=== PATIENT | female | born 2000 | race Caucasian/White ===

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

== ENCOUNTER 2020-01-02 20:12 | Emergency (ER) | payer OTHER ==
[2020-01-02 20:38] LABS: BILIRUBIN,URINE NEGATIVE (NEGATIVE); CLARITY,URINE CLEAR (CLEAR); GLUCOSE, URINE (UA) NEGATIVE (NEGATIVE); KETONES,URINE (UA) NEGATIVE (NEGATIVE); LEUKOCYTE ESTERASE, URINE NEGATIVE (NEGATIVE); NITRITE,URINE NEGATIVE (NEGATIVE); OCCULT BLOOD,URINE NEGATIVE (NEGATIVE); PH,URINE 5.5 PH (5.0-7.5); PROTEIN,URINE NEGATIVE (NEGATIVE); UROBILINOGEN,URINE 0.2 (NORMAL) E.U./dL (NORMAL)
[2020-01-02 20:39] LABS: HCG UR QUAL NEGATIVE
[2020-01-02 20:57] LABS: BASOPHILS % (AUTO) 0.4 %; EOSINOPHILS # (AUTO) 0.2 10^3/uL (0.0-0.7); EOSINOPHILS % (AUTO) 2.4 %; HGB - HEMOGLOBIN 13.2 g/dL (12.0-16.0); LYMPHOCYTES # (AUTO) 2.2 10^3/uL (1.5-3.5); LYMPHOCYTES % (AUTO) 29.6 %; MEAN CORPUSCULAR HEMOGLOBIN 29.9 pg (27.0-31.0); MEAN CORPUSCULAR HGB CONC 33.2 g/dL (32.0-36.0); MEAN PLATELET VOLUME 9.6 fL (7.9-10.8); MONOCYTES # (AUTO) 0.7 10^3/uL (0.0-1.0); MONOCYTES % (AUTO) 9.8 %; NEUTROPHILS # (AUTO) 4.3 10^3/uL (1.5-6.6); NEUTROPHILS % (AUTO) 57.4 %; PLT - PLATELET COUNT 241 10^3/uL (130-450); RED BLOOD COUNT 4.42 10^6/uL (4.20-5.40); RED CELL DISTRIBUTION WIDTH 12.2 % (12.0-15.0); WHITE BLOOD COUNT 7.5 x10^3/uL (4.8-10.8)
[2020-01-02 21:13] LABS: ALBUMIN 4.2 g/dL (3.2-5.5); ALBUMIN/GLOBULIN RATIO 1.4 (1.0-2.2); BILIRUBIN,TOTAL 0.5 mg/dL (0.2-1.0); CALCIUM 8.9 mg/dL (8.5-10.3); CREATININE 0.7 mg/dL (0.4-1.0); TOTAL PROTEIN 7.2 g/dL (6.7-8.2)
--- NOTE | 2020-01-02 22:57 | ED Physician Documentation ---
PD HPI ABD PAIN - Stated complaint Stated Complaint: AB PX - Chief complaint Chief Complaint: Abd Pain - History obtained from History obtained from: Patient - History of Present Illness Timing - onset: How many days ago (3-4) Timing - duration: Days Timing - details: Gradual onset, Waxing and waning Pain level now: 8 Quality: Pain Location: All over / everywhere, RUQ Improved by: Other (nothing) Worsened by: Other (no exacerbating factors) Associated symptoms: Diarrhea. No: Fever, Nausea, Vomiting Recently seen: Clinic, Emergency Dept - Additional information Additional information: c/o several days of abdominal pain, predominantly RUQ. She had outpatient CT A/P 12/19 for this with unremarkable results. She then had outpatient pelvic/TV US 12/30 (unremarkable) and later same day she went to ED, had blood tests, urinalysis, and US of RUQ (patient says also nondiagnostic US results but she was prescribed cefdinir for UTI as well as dicyclomine). Review of Systems Constitutional: denies: Fever, Chills, Sweats Cardiac: reports: Reviewed and negative Respiratory: reports: Reviewed and negative GI: reports: Abdominal Pain, Diarrhea. denies: Nausea, Vomiting : denies: Dysuria, Frequency, Now EGA Skin: denies: Rash Musculoskeletal: denies: Back pain PD PAST MEDICAL HISTORY - Past Medical History Respiratory: Asthma : Other Other Past Medical History: UTI, Kidney infection - Past Surgical History Past Surgical History: No - Present Medications Home Medications: Ambulatory Orders Medication Instructions Recorded Confirmed Cefdinir 300 mg PO BID 01/02/20 01/02/20 Dicyclomine HCl 20 mg PO TID 01/02/20 01/02/20 Diphenoxylate/Atropine [Lomotil] 1 each PO QID PRN #14 tablet 01/02/20 Hydrocodone/Acetaminophen 1 - 2 each PO Q6H PRN #14 tablet 01/02/20 [Hydrocodon-Acetaminophen 5-325] Naproxen 500 mg PO BID 01/02/20 01/02/20 Ondansetron Odt [Zofran] 4 mg TL Q6H PRN 01/02/20 01/02/20 - Allergies Allergies/Adverse Reactions: Allergies Allergy/AdvReac Type Severity Reaction Status Date / Time No Known Drug Allergies Allergy Verified 10/31/19 11:19 - Social History Does the pt smoke?: Yes Smoking Status: Current every day smoker Does the pt drink ETOH?: No Does the pt have substance abuse?: No - Immunizations Immunizations are current?: Yes - POLST Patient has POLST: No PD ED PE NORMAL - Vitals Vital signs reviewed: Yes - General General: Alert and oriented X 3, No acute distress, Well developed/nourished - HEENT HEENT: Moist mucous membranes - Cardiac Cardiac: RRR, No murmur - Respiratory Respiratory: No respiratory distress, Clear bilaterally - Abdomen Abdomen: Soft, Non tender, Non distended - Back Back: No CVA TTP - Derm Derm: No rash Results - Vitals Vitals: Vital Signs - 24 hr 01/02/20 01/02/20 20:20 23:28 Temperature 36.7 C Heart Rate 72 70 Respiratory 18 16 Rate Blood Pressure 114/62 116/68 O2 Saturation 100 100 Oxygen O2 Source Room air - Labs Labs: Laboratory Tests 01/02/20 01/02/20 01/02/20 20:30 20:48 20:48 WBC 7.5 RBC 4.42 Hgb 13.2 Hct 39.8 MCV 90.0 MCH 29.9 MCHC 33.2 RDW 12.2 Plt Count 241 MPV 9.6 Neut # (Auto) 4.3 Lymph # (Auto) 2.2 [place] # (Auto) 0.7 Eos # (Auto) 0.2 Baso # (Auto) 0.0 Absolute Nucleated RBC 0.00 Nucleated RBC % 0.0 Sodium 141 Potassium 3.5 Chloride 107 Carbon Dioxide 25 Anion Gap 9.0 BUN 13 Creatinine 0.7 Estimated GFR (MDRD) 108 Glucose 82 Calcium 8.9 Total Bilirubin 0.5 AST 20 ALT 17 Alkaline Phosphatase 60 Total Protein 7.2 Albumin 4.2 Globulin 3.0 Albumin/Globulin Ratio 1.4 Lipase 27 Urine Color YELLOW Urine Clarity CLEAR Urine pH 5.5 Ur Specific [place] 1.025 Urine Protein NEGATIVE Urine Glucose (UA) NEGATIVE Urine Ketones NEGATIVE Urine Occult Blood NEGATIVE Urine Nitrite NEGATIVE Urine Bilirubin NEGATIVE Urine Urobilinogen 0.2 (NORMAL) Ur Leukocyte Esterase NEGATIVE Ur Microscopic Review NOT INDICATED Urine Culture Comments NOT INDICATED Urine HCG, Qual NEGATIVE PD MEDICAL DECISION MAKING - ED course Complexity details: reviewed old records, reviewed results, re-evaluated patient, considered differential, d/w patient ED course: normal CBC, ER abd. pain, and urinalysis (and negative HCG) on tonight's tests. Given her recent imaging (CT A/P, US RUQ and pelvic/TV US) with unremarkable results, emergent imaging unlikely to yield diagnostic result at this time. Will treat symptomatically at this time with vicodin and lomotil Departure - Departure Disposition: 01 Home, Self Care Clinical Impression: Abdominal pain Qualifiers: Abdominal location: right upper quadrant Qualified Code(s): R10.11 - Right upper quadrant pain Condition: Good Instructions: ED Abdominal Pain Unkn Cause Follow-Up: Rafael Duran MD [Primary Care Provider] - Prescriptions: Diphenoxylate/Atropine [Lomotil] 1 each PO QID PRN #14 tablet PRN Reason: Diarrhea Hydrocodone/Acetaminophen [Hydrocodon-Acetaminophen 5-325] 1 - 2 each PO Q6H PRN #14 tablet PRN Reason: pain Discharge Date/Time: 01/02/20 23:28
[2020-01-02] MEDS ORDERED: DIPHENOX/ATROPINE 2.5/0.025 MG TABLET PO STA (23:16)
[2020-01-02] MEDS ORDERED: HYDROcod/ACET 5/325 Prepack 4 PO STA (23:16)
[2020-01-02 23:30] VITALS: BP 116/68
== END 2020-01-02 23:28 | disposition home or self-care (01) ==
LOC: ED 20:12
DX: R10.11 Right upper quadrant pain (principal); R19.7 Diarrhea, unspecified; F17.200 Nicotine dependence, unspecified, uncomplicated
CPT/HCPCS: 36415; 80053; 81003; 81025; 83690; 85025; 99283; 99284; A9270; 81001; 87086

== ENCOUNTER 2020-02-12 09:27 | Emergency (ER) | payer MEDICAID, OTHER ==
[2020-02-12 09:47] LABS: BILIRUBIN,URINE NEGATIVE (NEGATIVE); GLUCOSE, URINE (UA) NEGATIVE (NEGATIVE); KETONES,URINE (UA) NEGATIVE (NEGATIVE); LEUKOCYTE ESTERASE, URINE NEGATIVE (NEGATIVE); NITRITE,URINE NEGATIVE (NEGATIVE); OCCULT BLOOD,URINE NEGATIVE (NEGATIVE); PROTEIN,URINE NEGATIVE (NEGATIVE); UROBILINOGEN,URINE 0.2 (NORMAL) E.U./dL (NORMAL)
[2020-02-12] MEDS ORDERED: KETOROLAC 60 MG/2 ML VIAL IM STA (09:47)
[2020-02-12] MEDS ORDERED: LIDOCAINE PATCH 5% TOP STA (09:48)
[2020-02-12 09:49] LABS: CLARITY,URINE CLEAR (CLEAR)
[2020-02-12 09:50] LABS: HCG UR QUAL NEGATIVE
--- NOTE | 2020-02-12 09:51 | ED Physician Documentation ---
PD HPI BACK PAIN - Stated complaint Stated Complaint: BACK PX N/V - Chief complaint Chief Complaint: General - History obtained from History obtained from: Patient - History of Present Illness Timing - onset: How many weeks ago (2) Timing - duration: Weeks (2) Timing - details: Gradual onset Location: Mid Quality: Pain, Other ('cramps') Associated symptoms: No: Fever, Weakness, Numbness, Incontinent of urine, Unable to urinate, Hematuria Improves with: Nothing Worsened by: Movement Recently seen: Not recently seen - Additional information Additional information: This is a 19-year-old presents with complaints that she is having back cramps across the middle of her back and points to the thoracolumbar region. She is been nauseous and vomited yesterday but none today. She is been having this pain for a couple of weeks intermittently now is a 6 out of 10 and been more persistent. 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 This morning she took 1000 g around 6 AM and has not done anything to help pain. She denies any fever although she complains of "pretty much watery" diarrhea for the past week with some mucus mixed into it but no blood. She has trouble with urination from the fact that she can start the urine stream but then it start and she has to restart it. She has not seen blood in the urine and she has no idea when her last menstrual period was. She initially denied the use of any antibiotics within the past 3 months but then said she was treated for a urinary tract infection sometime in October or November she could not remember the date. She denies injury to her back but does have pain radiating down the posterior aspect of the left leg to about mid thigh. Denies any coughing or shortness of breath. Review of Systems Constitutional: denies: Fever Nose: denies: Rhinorrhea / runny nose, Congestion Respiratory: denies: Dyspnea, Cough GI: reports: Nausea, Vomiting, Diarrhea. denies: Abdominal Pain : reports: Hesitancy, LMP (unknown). denies: Dysuria, Hematuria Musculoskeletal: reports: Back pain (Denies injury) Neurologic: reports: Other (Radicular pain down the left posterior thigh) PD PAST MEDICAL HISTORY - Past Medical History Respiratory: Asthma : Other - Past Surgical History Past Surgical History: No - Present Medications Home Medications: Ambulatory Orders Medication Instructions Recorded Confirmed Dicyclomine HCl 20 mg PO TID 01/02/20 01/02/20 Lidocaine Patch 5% [Lidoderm Patch] 1 each TOP DAILY #10 patch 02/12/20 Ondansetron Odt [Zofran] 4 mg TL Q6H PRN #6 tablet 02/12/20 - Allergies Allergies/Adverse Reactions: Allergies Allergy/AdvReac Type Severity Reaction Status Date / Time No Known Drug Allergies Allergy Verified 02/12/20 09:33 - Social History Does the pt smoke?: Yes Smoking Status: Current every day smoker Does the pt drink ETOH?: No Does the pt have substance abuse?: No - Immunizations Immunizations are current?: Yes - POLST Patient has POLST: No PD ED PE NORMAL - Vitals Vital signs reviewed: Yes - General General: Alert and oriented X 3, No acute distress, Well developed/nourished - HEENT HEENT: Atraumatic, PERRL, Moist mucous membranes - Cardiac Cardiac: RRR, No murmur, Strong equal pulses - Respiratory Respiratory: No respiratory distress, Clear bilaterally - Abdomen Abdomen: Normal bowel sounds, Soft, No organomegaly - Back Back: No CVA TTP, Other (No bruising no rash) - Derm Derm: Normal color, Warm and dry, No rash - Extremities Extremities: No deformity - Neuro Neuro: Alert and oriented X 3, associate technician 2-12 intact, No motor deficit, No sensory deficit, Normal speech, Other (Reflexes 2+ and symmetrical at the quadriceps bilaterally) - Psych Psych: Normal mood, Normal affect Results - Vitals Vitals: Vital Signs - 24 hr 02/12/20 02/12/20 02/12/20 09:31 10:28 11:22 Temperature 36.8 C 36.8 C Heart Rate 77 75 76 Respiratory 18 16 16 Rate Blood Pressure 98/56 L 101/61 98/62 O2 Saturation 99 99 99 Oxygen O2 Source Room air - Labs Labs: Laboratory Tests 02/12/20 02/12/20 09:41 09:41 Urine Color YELLOW Urine Clarity CLEAR Urine pH 6.0 Ur Specific [place] >=1.030 H >=1.030 H Urine Protein NEGATIVE Urine Glucose (UA) NEGATIVE Urine Ketones NEGATIVE Urine Occult Blood NEGATIVE Urine Nitrite NEGATIVE Urine Bilirubin NEGATIVE Urine Urobilinogen 0.2 (NORMAL) Ur Leukocyte Esterase NEGATIVE Ur Microscopic Review NOT INDICATED Urine Culture Comments NOT INDICATED Urine HCG, Qual NEGATIVE PD MEDICAL DECISION MAKING - ED course Complexity details: reviewed results, d/w patient ED course: 1050: Patient received an injection of Toradol and a lidocaine patch was applied. When I went back in to see her she said the pain was a little bit better but she was feeling more dizzy and nauseous. We discussed that neither Toradol or lidocaine really should make her feel that symptomatic. At this point I do not have a clear indication for her pain other than it is most likely musculoskeletal. There is no indication that this is urinary tract infection or kidney infection. I recommended ibuprofen [id number]. We will give her a prescription for a few doses of Zofran as well as lidocaine patches. 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 She also has plenty of cyclobenzaprine at home that she can take if needed for muscle relaxer. That has been helping her she just reluctant to take it. She was also provided stretching exercises Departure - Departure Disposition: Home, Self Care Clinical Impression: Back strain Qualifiers: Encounter type: initial encounter Qualified Code(s): S39.012A - Strain of muscle, fascia and tendon of lower back, initial encounter Condition: Good Instructions: ED Back Care Tips, ED Exercises Lumbar Muscles, ED Sprain Strain Lumbar Follow-Up: Miriam Weeks PA-C [Primary Care Provider] - Prescriptions: Lidocaine Patch 5% [Lidoderm Patch] 1 each TOP DAILY #10 patch Ondansetron Odt [Zofran] 4 mg TL Q6H PRN #6 tablet PRN Reason: Nausea / Vomiting Comments: Take ibuprofen 3 to 4 tablets every 8 hours with food. You have a prescription for Zofran if needed for nausea. May continue to use the cyclobenzaprine as well as a muscle relaxer but do not drive or operate machinery if you are taking that. Lidocaine patches can help topically with the pain. Have also provided some back care tips that are safe to do at this time. Follow-up with your primary care provider if you continue to have pain. Forms: Activity restrictions Discharge Date/Time: 02/12/20 11:00
[2020-02-12 11:24] VITALS: BP 98/62
== END 2020-02-12 11:00 | disposition home or self-care (01) ==
LOC: ED 09:27
DX: S39.012A Strain of muscle, fascia and tendon of lower back, initial encounter (principal); X58.XXXA Exposure to other specified factors, initial encounter; F17.200 Nicotine dependence, unspecified, uncomplicated
CPT/HCPCS: 81003; 81025; 96372; 99283; 99284; A9270; 81001; 87086

== ENCOUNTER 2020-04-04 13:05 | Outpatient (CLI) | payer MEDICAID ==
--- NOTE | 2020-04-04 13:35 | XRAY Report ---
Reason: COUGH,SOB,LOW BACK PAIN,MUSCLE SPASM Procedure Date: 04/04/2020 Accession Number: [id number] / [id number] Procedure: XR - Chest 2 View X-Ray CPT Code: 55911 Final Report FULL RESULT: EXAM: CHEST RADIOGRAPHY EXAM DATE: 04/04/2020 01:22 PM. CLINICAL HISTORY: COUGH, SOB, LOW BACK PAIN, MUSCLE SPASM. COMPARISON: CHEST 2 VIEW 09/01/2018 8:15 PM. TECHNIQUE: 2 views. FINDINGS: Lungs/Pleura: No focal opacities evident. No pleural effusion. No pneumothorax. Normal volumes. Mediastinum: Heart and mediastinal contours are unremarkable. Other: None. IMPRESSION: No focal consolidation. RADIA The call report notification system was initiated by Dr. Katharine Moya at 01:33 PM on 04/04/2020.
--- NOTE | 2020-04-04 13:38 | XRAY Report ---
Reason: BACK SPASM,LOW BACK PAIN Procedure Date: 04/04/2020 Accession Number: [id number] / [id number] Procedure: XR - Lumbar Spine 2 View CPT Code: Final Report FULL RESULT: EXAM: LUMBOSACRAL SPINE RADIOGRAPHY EXAM DATE: 04/04/2020 01:25 PM. CLINICAL HISTORY: BACK SPASM, LOW BACK PAIN. COMPARISONS: None. TECHNIQUE: 2 views. FINDINGS: Alignment: Normal. No spondylolisthesis or scoliosis. Bones: Five [id number] lumbar vertebral bodies are present. No fractures or bone lesions. Disks: Normal. Disk heights are maintained. Facets: No degenerative changes. Sacroiliac Joints: Unremarkable. Soft Tissues: Normal. The visualized bowel gas pattern is normal. IMPRESSION: No fracture or listhesis. No significant degenerative changes. RADIA
== END 2020-04-04 13:06 | disposition home or self-care (01) ==
LOC: DI 13:05
PROVIDERS: ATTEND Physician Assistant Medical
DX: R05 Cough (principal); R06.02 Shortness of breath; F17.290 Nicotine dependence, other tobacco product, uncomplicated; M54.5 Low back pain; M54.6 Pain in thoracic spine; M62.830 Muscle spasm of back
CPT/HCPCS: 71046; 72100

== ENCOUNTER 2020-05-04 12:56 | Emergency (ER) | payer MEDICAID ==
[2020-05-04] MEDS ORDERED: ONDANSETRON ODT 4 MG TABLET TL STA (13:16)
[2020-05-04] MEDS ORDERED: ACETAMINOPHEN 325 MG TABLET PO STA (13:16)
[2020-05-04] MEDS ORDERED: LIDOCAINE 1% 2 ML VIAL MC ONE (13:18)
[2020-05-04] MEDS ORDERED: cefTRIAXone 1 GM VIAL IM STA (13:18)
--- NOTE | 2020-05-04 13:19 | ED Physician Documentation ---
History of Present Illness - Stated complaint Stated Complaint: JAW PX AND N/V - Chief complaint Chief Complaint: General - History obtained from History obtained from: Patient - History of Present Illness Timing: Today Pain level max: 7 Pain level now: 6 - Additonal information Additional information: 19-year-old female presents to the emergency department stating that the left side of her jaw has been clicking and popping more than usual. Increased pain today. Also has had nausea and vomiting over the past 2 days. Urinary frequency. History of frequent UTIs. No fevers. No abdominal pain. There is some low back pain. Patient denies any possibility of . States LMP was approximately 2 weeks ago and she takes test regularly. Review of Systems Constitutional: denies: Fever, Chills Respiratory: denies: Cough GI: denies: Abdominal Pain, Diarrhea : reports: Dysuria, Frequency, Hesitancy Skin: denies: Rash Musculoskeletal: denies: Neck pain Neurologic: denies: Focal weakness, Numbness, Headache PD PAST MEDICAL HISTORY - Past Medical History Past Medical History: Yes Respiratory: Asthma : Other - Past Surgical History Past Surgical History: No - Present Medications Home Medications: Ambulatory Orders Medication Instructions Recorded Confirmed Dicyclomine HCl 20 mg PO TID 01/02/20 01/02/20 Lidocaine Patch 5% [Lidoderm Patch] 1 each TOP DAILY #10 patch 02/12/20 Ondansetron Odt [Zofran] 4 mg TL Q6H PRN #6 tablet 02/12/20 Cephalexin [Keflex] 500 mg PO Q6H #20 capsule 05/04/20 Ondansetron Odt [Zofran] 4 mg TL Q6H PRN #10 tablet 05/04/20 - Allergies Allergies/Adverse Reactions: Allergies Allergy/AdvReac Type Severity Reaction Status Date / Time No Known Drug Allergies Allergy Verified 05/04/20 13:03 - Social History Does the pt smoke?: Yes Smoking Status: Current every day smoker Does the pt drink ETOH?: No Does the pt have substance abuse?: No - Immunizations Immunizations are current?: Yes - POLST Patient has POLST: No PD ED PE NORMAL - Vitals Vital signs reviewed: Yes - General General: Alert and oriented X 3, No acute distress, Well developed/nourished - HEENT HEENT: Ears normal, Moist mucous membranes, Pharynx benign, Dentition benign, Other (Mild tenderness over the left TMJ. There is a slight click with opening of the jaw. No swelling. No abscess. No facial cellulitis.) - Neck Neck: Supple, no meningeal sign, No adenopathy - Cardiac Cardiac: RRR, Strong equal pulses - Respiratory Respiratory: No respiratory distress, Clear bilaterally - Abdomen Abdomen: Soft, Non tender, Non distended - Back Back: No CVA TTP, No spinal TTP - Derm Derm: Warm and dry - Extremities Extremities: No edema, No calf tenderness / cord - Neuro Neuro: Alert and oriented X 3 - Psych Psych: Normal mood, Normal affect Results - Vitals Vitals: Vital Signs - 24 hr 05/04/20 13:03 Temperature 36.6 C Heart Rate 88 Respiratory 16 Rate Blood Pressure 131/66 H O2 Saturation 98 Oxygen O2 Source Room air - Labs Labs: Laboratory Tests 05/04/20 13:13 Urine Color YELLOW Urine Clarity CLEAR Urine pH 8.5 H Ur Specific [place] 1.020 Urine Protein NEGATIVE Urine Glucose (UA) NEGATIVE Urine Ketones NEGATIVE Urine Occult Blood NEGATIVE Urine Nitrite NEGATIVE Urine Bilirubin NEGATIVE Urine Urobilinogen 0.2 (NORMAL) Ur Leukocyte Esterase NEGATIVE Ur Microscopic Review NOT INDICATED Urine Culture Comments NOT INDICATED Urine HCG, Qual NEGATIVE PD MEDICAL DECISION MAKING - ED course Complexity details: reviewed results, re-evaluated patient, considered differential, d/w patient ED course: Patient's urine is obviously cloudy at the bedside. We will prescribe antibiotics for her. Will prescribe nausea medication as well. She is well- appearing, nontoxic. Afebrile. No evidence of pyelonephritis. No evidence of kidney stone. We will treat her TMJ symptomatically. Patient counseled regarding signs and symptoms for which I believe and urgent re-evaluation would be necessary. Patient with good understanding of and agreement to plan and is comfortable going home at this time This document was made in part using voice recognition software. While efforts are made to proofread this document, sound alike and grammatical errors may occu r. Departure - Departure Disposition: 01 Home, Self Care Clinical Impression: TMJ (temporomandibular joint syndrome) UTI (urinary tract infection) Qualifiers: Urinary tract infection type: acute cystitis Hematuria presence: without hematuria Qualified Code(s): N30.00 - Acute cystitis without hematuria Condition: Good Instructions: ED TMJ Syndrome, ED UTI Cystitis Female Follow-Up: Miriam Weeks PA-C [Primary Care Provider] - Within 1 week Prescriptions: Cephalexin [Keflex] 500 mg PO Q6H #20 capsule Ondansetron Odt [Zofran] 4 mg TL Q6H PRN #10 tablet PRN Reason: Nausea / Vomiting Comments: Take all antibiotics until gone. Return if you worsen. You can use Motrin or Tylenol as needed for your jaw pain. You can also try a mouthguard at night to help relieve your symptoms.
[2020-05-04 13:20] LABS: BILIRUBIN,URINE NEGATIVE (NEGATIVE); GLUCOSE, URINE (UA) NEGATIVE (NEGATIVE); KETONES,URINE (UA) NEGATIVE (NEGATIVE); LEUKOCYTE ESTERASE, URINE NEGATIVE (NEGATIVE); NITRITE,URINE NEGATIVE (NEGATIVE); OCCULT BLOOD,URINE NEGATIVE (NEGATIVE); PH,URINE 8.5 PH (5.0-7.5); PROTEIN,URINE NEGATIVE (NEGATIVE); UROBILINOGEN,URINE 0.2 (NORMAL) E.U./dL (NORMAL)
[2020-05-04 13:23] LABS: CLARITY,URINE CLEAR (CLEAR); HCG UR QUAL NEGATIVE
[2020-05-04 14:11] VITALS: BP 134/72
== END 2020-05-04 14:10 | disposition home or self-care (01) ==
LOC: ED 12:56
DX: M26.622 Arthralgia of left temporomandibular joint (principal); N30.00 Acute cystitis without hematuria; R11.2 Nausea with vomiting, unspecified; F17.200 Nicotine dependence, unspecified, uncomplicated
CPT/HCPCS: 81003; 81025; 96372; 99283; 99284; A9270; Q0162; 81001; 87086

== ENCOUNTER 2020-06-12 08:40 | Emergency (ER) | payer MEDICAID ==
--- NOTE | 2020-06-12 09:02 | ED Physician Documentation ---
PD HPI CHEST PAIN - Stated complaint Stated Complaint: CHEST PX - History obtained from History obtained from: Patient - History of Present Illness Timing - onset: How many days ago (2) Timing - onset during: Light activity Timing - duration: Days (2) Timing - details: Gradual onset, Still present Quality: Aching, Sharp Location: Substernal Radiation: No: Jaw, Neck, Back Improved by: Rest Worsened by: Inspiration, Palpation Associated symptoms: No: Shortness of air, Diaphoresis, Nausea, Vomiting Similar symptoms before: Has not had sx before Recently seen: Not recently seen - Additional information Additional information: Previously well 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 She has this pain with inspiration and with palpation. She is noticed this for about 2 days. She has not had a cough or fever. She does wear a mask at work 8 hours a day. She indicates that she has been wearing a mask since coronavirus started and this is not a new phenomena to her. She has not developed this chest pressure pre-previously. Review of Systems Constitutional: denies: Fever Eyes: denies: Decreased vision Ears: denies: Ear pain Nose: denies: Rhinorrhea / runny nose, Congestion Throat: denies: Sore throat Cardiac: reports: Chest pain / pressure. denies: Palpitations, Pedal edema, Calf pain Respiratory: reports: Dyspnea. denies: Cough, Wheezing GI: denies: Abdominal Pain, Nausea, Vomiting : denies: Dysuria, Frequency Skin: denies: Rash Musculoskeletal: denies: Neck pain, Back pain, Extremity pain Neurologic: denies: Generalized weakness, Focal weakness, Numbness PD PAST MEDICAL HISTORY - Past Medical History Respiratory: Asthma : Other - Past Surgical History Past Surgical History: No - Present Medications Home Medications: Ambulatory Orders Medication Instructions Recorded Confirmed Sertraline [Zoloft] mg PO DAILY 06/12/20 - Allergies Allergies/Adverse Reactions: Allergies Allergy/AdvReac Type Severity Reaction Status Date / Time No Known Drug Allergies Allergy Verified 06/12/20 09:02 - Social History Does the pt smoke?: Yes Smoking Status: Current every day smoker Does the pt drink ETOH?: No Does the pt have substance abuse?: No - Immunizations Immunizations are current?: Yes - POLST Patient has POLST: No PD ED PE NORMAL - Vitals Vital signs reviewed: Yes (normal ) - General General: Alert and oriented X 3, No acute distress, Well developed/nourished - HEENT HEENT: Atraumatic, PERRL, EOMI - Neck Neck: Supple, no meningeal sign, No bony TTP - Cardiac Cardiac: RRR, No murmur - Respiratory Respiratory: No respiratory distress, Clear bilaterally, Other (chest wall tenderness to palpation reproduces the pain the patient is experiencing ) - Abdomen Abdomen: Soft, Non tender - Back Back: No CVA TTP, No spinal TTP - Derm Derm: Normal color, Warm and dry, No rash - Extremities Extremities: No deformity, No edema - Neuro Neuro: Alert and oriented X 3, manufacturing engineering technician 2-12 intact, No motor deficit, No sensory deficit, Normal speech Eye Opening: Spontaneous Motor: Obeys Commands Verbal: Oriented GCS Score: 15 - Psych Psych: Normal mood, Normal affect Results - Vitals Vitals: Vital Signs - 24 hr 06/12/20 06/12/20 08:58 09:05 Temperature 36.5 C Heart Rate 60 51 L Respiratory 16 16 Rate Blood Pressure 108/65 104/55 L O2 Saturation 100 100 Oxygen O2 Source Room air - EKG (time done) 0852 Rate: Rate (enter#) (47) Rhythm: Sinus bradycardia Compare to prior EKG: Changed from prior EKG (SPT 11-10-2019 the rate has decreased) Computer interpretation: Agree with computer - Labs Labs: Laboratory Tests 06/12/20 06/12/20 06/12/20 10:20 10:20 10:20 WBC 7.3 RBC 4.05 L Hgb 12.4 Hct 37.6 MCV 92.8 MCH 30.6 MCHC 33.0 RDW 12.4 Plt Count 238 MPV 9.0 Neut # (Auto) 3.4 Lymph # (Auto) 2.8 [place] # (Auto) 0.7 Eos # (Auto) 0.3 Baso # (Auto) 0.0 Absolute Nucleated RBC 0.00 Nucleated RBC % 0.0 Sodium 139 Potassium 3.5 Chloride 109 Carbon Dioxide 25 Anion Gap 5.0 L BUN 11 Creatinine 0.6 Estimated GFR (MDRD) 129 Glucose 95 Calcium 8.7 Total Bilirubin 0.8 AST 17 ALT 15 Alkaline Phosphatase 58 Troponin I High Sens < 2.3 L Total Protein 6.7 Albumin 3.9 Globulin 2.8 Albumin/Globulin Ratio 1.4 Lipase 31 - Rads (name of study) chest Radiology: Prelim report reviewed (Impression: 1. No acute cardiopulmonary disease.), EMP read indepedently, See rad report PD MEDICAL DECISION MAKING - ED course Complexity details: reviewed results, re-evaluated patient, considered differential, d/w patient ED course: 19-year-old female who is bearing wearing a mask at work continuously as a J[employer] PIERCER OPERATOR has developed chest wall pain and tenderness and into inspiratory pain. I suspect she has mask chondritis.She is treated here in the emergency department with dexamethasone 10 mg orally and Toradol 60 mg IM. Departure - Departure Disposition: Home, Self Care Clinical Impression: Costochondritis, acute Condition: Stable Instructions: ED Chest Pain Costochondritis Follow-Up: Miriam Weeks PA-C [Primary Care Provider] - Forms: Activity restrictions
[2020-06-12] MEDS ORDERED: KETOROLAC 60 MG/2 ML VIAL IM STA (10:11)
[2020-06-12] MEDS ORDERED: DEXAMETHASONE 10 MG/ML VIAL PO STA (10:11)
[2020-06-12] MEDS ORDERED: CHERRY SYRUP 10 ML UDC PO ONE (10:11)
[2020-06-12 10:23] LABS: BASOPHILS % (AUTO) 0.6 %; EOSINOPHILS # (AUTO) 0.3 10^3/uL (0.0-0.7); EOSINOPHILS % (AUTO) 3.9 %; HGB - HEMOGLOBIN 12.4 g/dL (12.0-16.0); LYMPHOCYTES # (AUTO) 2.8 10^3/uL (1.5-3.5); LYMPHOCYTES % (AUTO) 38.4 %; MEAN CORPUSCULAR HEMOGLOBIN 30.6 pg (27.0-31.0); MEAN CORPUSCULAR VOLUME 92.8 fL (81.0-99.0); MONOCYTES # (AUTO) 0.7 10^3/uL (0.0-1.0); MONOCYTES % (AUTO) 9.9 %; NEUTROPHILS # (AUTO) 3.4 10^3/uL (1.5-6.6); NEUTROPHILS % (AUTO) 46.8 %; PLT - PLATELET COUNT 238 10^3/uL (130-450); RED BLOOD COUNT 4.05 10^6/uL (4.20-5.40); RED CELL DISTRIBUTION WIDTH 12.4 % (12.0-15.0); WHITE BLOOD COUNT 7.3 x10^3/uL (4.8-10.8)
[2020-06-12 10:36] LABS: ALBUMIN 3.9 g/dL (3.2-5.5); ALBUMIN/GLOBULIN RATIO 1.4 (1.0-2.2); BILIRUBIN,TOTAL 0.8 mg/dL (0.2-1.0); CALCIUM 8.7 mg/dL (8.5-10.3); CREATININE 0.6 mg/dL (0.4-1.0); TOTAL PROTEIN 6.7 g/dL (6.7-8.2)
--- NOTE | 2020-06-12 10:37 | XRAY Report ---
PROCEDURE: Chest 2 View X-Ray INDICATIONS: central chest pain TECHNIQUE: 2 view(s) of the chest. COMPARISON: Chest x-ray 04/04/2020. FINDINGS: Surgical changes and devices: None. Lungs and pleura: No pleural effusions or pneumothorax. Lungs are clear. Mediastinum: Mediastinal contours are normal. Heart size is normal. Bones and chest wall: No suspicious bony abnormalities. Soft tissues appear unremarkable. IMPRESSION: 1. No acute cardiopulmonary disease. Reviewed by: Emilio Finley MD on 06/12/2020 10:35 AM PDT Approved by: Emilio Finley MD on 06/12/2020 10:35 AM PDT Station ID: [id number]
[2020-06-12 11:15] VITALS: BP 121/55
== END 2020-06-12 11:23 | disposition home or self-care (01) ==
LOC: ED 08:40
DX: M94.0 Chondrocostal junction syndrome [Tietze] (principal); R00.1 Bradycardia, unspecified; F17.200 Nicotine dependence, unspecified, uncomplicated
CPT/HCPCS: 36415; 71046; 80053; 83690; 84484; 85025; 93005; 96372; 99283; 99284; A9270

== ENCOUNTER 2020-07-24 08:00 | Outpatient (CLI) | payer MEDICAID | END 2020-07-24 08:01 | disposition home or self-care (01) | LOC: COV 08:00 | PROVIDERS: ATTEND Family Medicine | DX: R19.7 Diarrhea, unspecified (principal); Z20.828 Contact with and (suspected) exposure to other viral communicable diseases ==

== ENCOUNTER 2020-09-12 08:00 | Outpatient (CLI) | payer MEDICAID | END 2020-09-12 23:59 | disposition home or self-care (01) | LOC: LAB.R 08:00 | PROVIDERS: ATTEND Pediatrics | DX: J06.9 Acute upper respiratory infection, unspecified (principal); R05 Cough; Z20.828 Contact with and (suspected) exposure to other viral communicable diseases ==

== ENCOUNTER 2020-10-29 22:57 | Emergency (ER) | payer MEDICAID ==
[2020-10-29 23:02] VITALS: BP 130/64
[2020-10-29 23:17] LABS: RAPID STREP SCREEN Negative (Negative)
--- NOTE | 2020-10-29 23:34 | ED Physician Documentation ---
PD HPI URI - Stated complaint Stated Complaint: SORE THROAT - Chief complaint Chief Complaint: Heent - History obtained from History obtained from: Patient - History of Present Illness Timing - onset: Yesterday Timing duration: Days (11/24) Timing details: Abrupt onset, Still present Associated symptoms: Sore throat (mainly just left tonsil area. pain with swallowing.), Swollen nodes (mild left anterior neck). 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 She tested negative last week on rapid test.), Travel, Immunocompromised Improves by: No: Medication (not improved with Tylenol) Worsened by: Other (swallowing) Similar symptoms before: Has not had sx before Recently seen: Not recently seen Review of Systems Constitutional: denies: Fever, Chills Nose: denies: Rhinorrhea / runny nose, Congestion, Sinus pressure / pain Throat: reports: Sore throat. denies: Dental pain / toothache Respiratory: denies: Dyspnea, Cough PD PAST MEDICAL HISTORY - Past Medical History Past Medical History: Yes Respiratory: Asthma GI: Other : Other Other Past Medical History: IBS - Past Surgical History Past Surgical History: No - Present Medications Home Medications: Ambulatory Orders Medication Instructions Recorded Confirmed Sertraline [Zoloft] 25 mg PO DAILY 06/12/20 10/29/20 Dicyclomine [Bentyl] 20 mg PO QID PRN #10 capsule 06/19/20 10/29/20 Cephalexin [Keflex] 500 mg PO TID #20 capsule 10/29/20 HYDROcod/ACETAM 5/325 [[place] 5/325] 1 ea PO Q6H PRN #10 tablet 10/29/20 dexAMETHasone [Decadron] 4 mg PO DAILY #5 tablet 10/29/20 - Allergies Allergies/Adverse Reactions: Allergies Allergy/AdvReac Type Severity Reaction Status Date / Time No Known Drug Allergies Allergy Verified 10/29/20 23:00 - Social History Does the pt smoke?: Yes Smoking Status: Former smoker Does the pt drink ETOH?: No Does the pt have substance abuse?: No - Immunizations Immunizations are current?: Yes - POLST Patient has POLST: No PD ED PE NORMAL - Vitals Vital signs reviewed: Yes - General General: Alert and oriented X 3, No acute distress, Well developed/nourished - HEENT HEENT: Ears normal, Moist mucous membranes, Dentition benign, Other (normal voice without hoarseness). No: Pharynx benign (there is redness with mild swelling but no exudate left tonsil and peritonsillar area. Right side appears okay. ) - Neck Neck: Supple, no meningeal sign, Other (mild tender left anterior adenopathy. ) - Cardiac Cardiac: RRR, No murmur - Respiratory Respiratory: Clear bilaterally - Derm Derm: Normal color, Warm and dry, No rash Results - Vitals Vitals: Vital Signs - 24 hr 10/29/20 23:00 Temperature 36.5 C Heart Rate 95 Respiratory 16 Rate Blood Pressure 130/64 O2 Saturation 100 Oxygen O2 Source Room air - Labs Labs: Laboratory Tests 10/29/20 23:03 Group A Strep Rapid Negative PD MEDICAL DECISION MAKING - ED course Complexity details: considered differential (local pain to left tonsil area with some mild swelling and anterior adenopathy, without other symptoms, is concerning for bacterial infection. Rapid strep negative, but less likely GAS and would consider other strep groups. She had negative COVID test at work last week and will be tested in 2 days. ), d/w patient Departure - Departure Disposition: 01 Home, Self Care Clinical Impression: Acute pharyngitis Qualifiers: Pharyngitis/tonsillitis etiology: unspecified etiology Qualified Code(s): J02.9 - Acute pharyngitis, unspecified Condition: Stable Record reviewed to determine appropriate education?: Yes Instructions: ED Strep Pharyngitis Poss Prescriptions: dexAMETHasone [Decadron] 4 mg PO DAILY #5 tablet Cephalexin [Keflex] 500 mg PO TID #20 capsule HYDROcod/ACETAM 5/325 [[place] 5/325] 1 ea PO Q6H PRN #10 tablet PRN Reason: Pain Comments: Clinically this seems more concerning for potential bacterial infection. Your r apid strep test is negative which is just focused at group A strep. The throat culture will result in a couple of days and includes other bacterial causes. We can empirically treat with antibiotic given the suspicion for a bacterial cause. With the culture results in a couple of days, if it is negative then antibiotics can be discontinued. Otherwise would treat for inflammation and the pain with Decadron steroid daily for a few days. To that add Tylenol or ibuprofen for pain and hydrocodone if needed for worse pain. You would likely only need the stronger pain medicine for a day or 2 until things are improving. Recheck if worsening symptoms overall. Otherwise you said you would be retested for Covid at work on Thursday. At this point it would seem low suspicion for that. Off work for 1 to 2 days if needed for the throat pain and to see if you have more symptoms develop. Forms: Activity restrictions Discharge Date/Time: 10/30/20 00:09
[2020-10-29] MEDS ORDERED: CHERRY SYRUP 10 ML UDC PO ONE (23:46)
[2020-10-29] MEDS ORDERED: DEXAMETHASONE 10 MG/ML VIAL PO STA (23:46)
[2020-10-29] MEDS ORDERED: cephALEXin 250 MG CAPSULE PO STA (23:46)
[2020-10-29] MEDS ORDERED: IBUPROFEN 400 MG TABLET PO STA (23:46)
[2020-10-29] MEDS ORDERED: HYDROcod/ACET 5/325 Prepack 4 PO STA (23:47)
== END 2020-10-30 00:09 | disposition home or self-care (01) ==
LOC: ED 22:57
DX: J02.9 Acute pharyngitis, unspecified (principal); Z87.891 Personal history of nicotine dependence
CPT/HCPCS: 87070; 87077; 87430; 99283; 99284; A9270

== ENCOUNTER 2021-01-07 04:01 | Emergency (ER) | payer MEDICAID, OTHER ==
--- NOTE | 2021-01-07 04:49 | ED Physician Documentation ---
History of Present Illness - Stated complaint Stated Complaint: BURNING SENSATION IN MOUTH - Chief complaint Chief Complaint: General - History obtained from History obtained from: Patient - Additonal information Additional information: Patient comes emergency department with dual chief complaints of intermittent rash on hands for 2 weeks and burning in mouth. The patient states she has been noticing a rash on her hands, mainly on the palms and flexor surfaces of her wrists, that seems to come and go at random. She states the rash is not painful or itchy. She shows me a picture and rash appears to be a collection of annular, or target lesions. Patient denies having any of the lesions anywhere else on her body. She denies any other symptoms, such as fever, chills, swelling of the mouth and throat, or itching. She states that she cannot really connect the lesions to any particular time of day or exposure, and that they seem to subside on their own. Patient does get exposed to various chemicals solutions at work, but wears gloves. She states nothing is touched her skin and she has not been using any new products that she knows of. This is never happened to her before. She states that she woke up this morning with a burning sensation on the tip of her tongue and on the roof of her mouth. She had been sleeping and noticed the feeling when she woke out of sleep. She denies any numbness or tingling. No difficulty speaking or swallowing. She was not drinking anything or sucking on anything. She states her main concern is that she might have [id number]-mouth disease. No other complaints at this time. Review of Systems Ten Systems: 10 systems reviewed and negative Constitutional: reports: Reviewed and negative Eyes: reports: Reviewed and negative Ears: reports: Reviewed and negative Nose: reports: Reviewed and negative Throat: reports: Reviewed and negative. denies: Oral lesions / sores Cardiac: reports: Reviewed and negative Respiratory: reports: Reviewed and negative GI: reports: Reviewed and negative : reports: Reviewed and negative Skin: reports: Rash Musculoskeletal: reports: Reviewed and negative Neurologic: reports: Reviewed and negative Psychiatric: reports: Reviewed and negative Endocrine: reports: Reviewed and negative Immunocompromised: reports: Reviewed and negative PD PAST MEDICAL HISTORY - Past Medical History Past Medical History: Yes Respiratory: Asthma GI: Other : Other Psych: None Musculoskeletal: None Other Past Medical History: IBS - Past Surgical History Past Surgical History: No - Present Medications Home Medications: Ambulatory Orders Medication Instructions Recorded Confirmed Sertraline [Zoloft] 25 mg PO DAILY 06/12/20 01/07/21 - Allergies Allergies/Adverse Reactions: Allergies Allergy/AdvReac Type Severity Reaction Status Date / Time No Known Drug Allergies Allergy Verified 01/07/21 04:14 - Social History Does the pt smoke?: No Smoking Status: Former smoker Does the pt drink ETOH?: No Does the pt have substance abuse?: No - Immunizations Immunizations are current?: Yes - POLST Patient has POLST: No PD ED PE NORMAL - Vitals Vital signs reviewed: Yes - General General: Alert and oriented X 3, No acute distress, Well developed/nourished - HEENT HEENT: Atraumatic, PERRL, EOMI, Moist mucous membranes, Pharynx benign, Dentition benign, Other (No oral lesions. Normal coloration of mucosa of tongue and hard and soft palate. No swelling. No deformity. Structures are symmetrical.) - Neck Neck: Supple, no meningeal sign - Cardiac Cardiac: Strong equal pulses - Respiratory Respiratory: No respiratory distress - Derm Derm: Normal color (Other than rash.), Warm and dry, Other (Patient has minimal lesions on her hands and wrists at this time. 3 flat, raised lesions of 3 to 4 mm in diameter are noted on flexor surface of right wrist. No pustules or vesicles.) - Extremities Extremities: No deformity, No edema - Neuro Neuro: Alert and oriented X 3 - Psych Psych: Normal mood, Normal affect Results - Vitals Vitals: Vital Signs - 24 hr 01/07/21 01/07/21 04:05 04:54 Temperature 36.8 C Heart Rate 73 87 Respiratory 16 14 Rate Blood Pressure 128/70 120/81 H O2 Saturation 100 99 Oxygen O2 Source Room air PD MEDICAL DECISION MAKING - ED course Complexity details: considered differential, d/w patient ED course: I discussed with the patient that I do not find any evidence of [id number]-bess-[id number]-mouth disease. I am not sure why she has the burning sensation in her mouth, and I can find no reason for this. Most importantly, there is no swelling, and there are no lesions. As far as her palm are target lesions which seem to come intermittently, I suspect they are a urticarial variant, and are caused by some kind of topical exposure that is occurring only on her palms/distal upper extremity flexor surfaces. I am not sure exactly what that exposure is, but I have advised the patient to try to be mindful of what is touching her skin at various times, particularly prior to the rash breaking out. In this way, perhaps she can pinpoint the cause. We discussed home management of symptoms and the need for follow-up. We have discussed the usual indications for return. Departure - Departure Disposition: 01 Home, Self Care Clinical Impression: Paresthesia of tongue, Urticaria Condition: Stable Instructions: ED Urticaria Comments: It is not clear exactly what is causing the rash that is coming and going on your palms. As we discussed, a rash that looks like the one you have but occurs on the trunk is usually caused by a specific condition. This condition does not cause people to have isolated rashes of this nature on their palms. As we discussed there is a variant of hives that can make the ringlike markings that you have when your rash breaks out. As such, it is very likely that you are somehow getting exposed to something that is triggering the reaction to just be on your hands. Since it is not itching and there is no evidence of infection or other serious condition, the best course of action is probably to just leave it alone. However, you should pay close attention to your daily exposures, and see if you can pinpoint something, even if it is seemingly small or subtle, that might be causing a reaction on your hands. If you continue to have the symptoms for more than another week, you should follow-up with your primary care physician to discuss referral to dermatology. As far as the burning sensation on the tip of your tongue and the roof of your mouth it is not possible to say why you are feeling this way. Your tongue and the roof of your mouth look totally normal, and it is expected that this will blow over without complications. Discharge Date/Time: 01/07/21 04:54
[2021-01-07 04:55] VITALS: BP 120/81
== END 2021-01-07 04:54 | disposition home or self-care (01) ==
LOC: ED 04:01
DX: L50.9 Urticaria, unspecified (principal); K14.6 Glossodynia; R20.2 Paresthesia of skin; Z87.891 Personal history of nicotine dependence
CPT/HCPCS: 99283; 99284

== ENCOUNTER 2021-01-07 08:00 | Outpatient (CLI) | payer MEDICAID ==
[2021-01-07 18:22] LABS: BASOPHILS # (AUTO) 0.1 10^3/uL (0.0-0.1); BASOPHILS % (AUTO) 0.6 %; EOSINOPHILS # (AUTO) 0.3 10^3/uL (0.0-0.7); HGB - HEMOGLOBIN 13.3 g/dL (12.0-16.0); LYMPHOCYTES # (AUTO) 2.4 10^3/uL (1.5-3.5); LYMPHOCYTES % (AUTO) 28.1 %; MEAN CORPUSCULAR HEMOGLOBIN 29.2 pg (27.0-31.0); MEAN CORPUSCULAR HGB CONC 31.7 g/dL (32.0-36.0); MEAN CORPUSCULAR VOLUME 91.9 fL (81.0-99.0); MEAN PLATELET VOLUME 9.7 fL (7.9-10.8); MONOCYTES # (AUTO) 0.7 10^3/uL (0.0-1.0); MONOCYTES % (AUTO) 7.9 %; NEUTROPHILS # (AUTO) 5.1 10^3/uL (1.5-6.6); NEUTROPHILS % (AUTO) 60.2 %; PLT - PLATELET COUNT 284 10^3/uL (130-450); RED BLOOD COUNT 4.56 10^6/uL (4.20-5.40); RED CELL DISTRIBUTION WIDTH 12.8 % (12.0-15.0); WHITE BLOOD COUNT 8.4 x10^3/uL (4.8-10.8)
[2021-01-07 18:27] LABS: BILIRUBIN,URINE NEGATIVE (NEGATIVE); GLUCOSE, URINE (UA) NEGATIVE (NEGATIVE); KETONES,URINE (UA) NEGATIVE (NEGATIVE); LEUKOCYTE ESTERASE, URINE NEGATIVE (NEGATIVE); NITRITE,URINE NEGATIVE (NEGATIVE); OCCULT BLOOD,URINE NEGATIVE (NEGATIVE); PH,URINE 6.5 PH (5.0-7.5); PROTEIN,URINE NEGATIVE (NEGATIVE); UROBILINOGEN,URINE 0.2 (NORMAL) E.U./dL (NORMAL)
[2021-01-07 18:33] LABS: ALBUMIN 4.3 g/dL (3.2-5.5); ALBUMIN/GLOBULIN RATIO 1.3 (1.0-2.2); BILIRUBIN,TOTAL 0.8 mg/dL (0.2-1.0); CALCIUM 9.8 mg/dL (8.5-10.3); CREATININE 0.6 mg/dL (0.4-1.0); TOTAL PROTEIN 7.6 g/dL (6.7-8.2)
[2021-01-07 18:37] LABS: BACTERIA,URINE None Seen /HPF (None Seen); CLARITY,URINE HAZY (CLEAR); RBC,URINE None Seen /HPF (0-5); SQUAMOUS EPITHELIAL CELL,UR MANY Squamous (<= Few)
[2021-01-07 18:38] LABS: MUCUS,URINE Few Strands
== END 2021-01-07 23:59 | disposition home or self-care (01) ==
LOC: LAB.N 08:00
PROVIDERS: ATTEND Physician Assistant Medical
DX: L50.9 Urticaria, unspecified (principal)
CPT/HCPCS: 36415; 80053; 81001; 85025; 85651; 87086

== ENCOUNTER 2021-01-07 20:31 | Emergency (ER) | payer MEDICAID ==
--- NOTE | 2021-01-07 22:09 | ED Physician Documentation ---
PD HPI SKIN - Stated complaint Stated Complaint: RASH - Chief complaint Chief Complaint: Wound - History obtained from History obtained from: Patient - History of Present Illness Timing - onset: Yesterday Timing - details: Abrupt onset, Still present (initially on hands, with some feeling of burning in mouth. Now also having rash on feet/legs. No general itching. Rash is more burning.) Location: Bodywide (hands and feet, legs mainly.) Quality / character: Burning. No: Itchy, Vesicular Associated symptoms: Other (No recent illness. Has strep throat Rx with Amox about 6 weeks ago, finished with abx 4 weeks ago. No other new meds. No recent URI symptoms, sore throat.). 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 No: Exposed to medication, Exposed to soap / lotion, Recent illness Similar symptoms before: Has not had sx before Recently seen: Clinic (Walk In and got Benadryl and Decadron.), Emergency Dept (earlier today and Rx with urticaria. No Rx.) Review of Systems Constitutional: denies: Fever, Chills Nose: denies: Rhinorrhea / runny nose, Congestion Throat: reports: Sore throat (a month ago, no recent symptoms.) Respiratory: denies: Cough GI: denies: Nausea, Vomiting Skin: denies: Rash PD PAST MEDICAL HISTORY - Past Medical History Past Medical History: Yes Respiratory: Asthma GI: Other : Other Psych: None Musculoskeletal: None - Past Surgical History Past Surgical History: No - Present Medications Home Medications: Ambulatory Orders Medication Instructions Recorded Confirmed Sertraline [Zoloft] 25 mg PO DAILY 06/12/20 01/07/21 Cetirizine [ZyrTEC] 10 mg PO BID #20 tab 01/07/21 HYDROcod/ACETAM 5/325 [[place] 5/325] 1 ea PO Q6H PRN #15 tab 01/07/21 dexAMETHasone [Decadron] 4 mg PO DAILY #7 tab 01/07/21 - Allergies Allergies/Adverse Reactions: Allergies Allergy/AdvReac Type Severity Reaction Status Date / Time No Known Drug Allergies Allergy Verified 01/07/21 20:35 - Social History Does the pt smoke?: No Smoking Status: Never smoker Does the pt drink ETOH?: No Does the pt have substance abuse?: No - Immunizations Immunizations are current?: Yes - POLST Patient has POLST: No PD ED PE NORMAL - Vitals Vital signs reviewed: Yes - General General: Alert and oriented X 3, Well developed/nourished - HEENT HEENT: Ears normal, Moist mucous membranes, Pharynx benign - Neck Neck: Supple, no meningeal sign, No adenopathy - Cardiac Cardiac: RRR, No murmur - Respiratory Respiratory: Clear bilaterally - Derm Derm: Normal color, Warm and dry - Extremities Extremities: Other (hands, feet with rounded red rash areas about 1 cm diameter, with central clearing. No vesicles. appears c/w EM. ) - Neuro Neuro: Alert and oriented X 3, No motor deficit, No sensory deficit Results - Vitals Vitals: Vital Signs - 24 hr 01/07/21 01/07/21 20:36 23:13 Temperature 37.6 C 36.6 C Heart Rate 100 72 Respiratory 19 18 Rate Blood Pressure 133/68 H 113/58 L O2 Saturation 100 98 Oxygen O2 Source Room air PD MEDICAL DECISION MAKING - ED course Complexity details: considered differential (rash is hurting and expanding. Has gotten steroid and antihistamine. Can give pain med. Refer to Dermatology. No obvious cause at this time. Has been over a month since Amox. No recent new meds. No URI symptoms. ), d/w patient Departure - Departure Disposition: 01 Home, Self Care Clinical Impression: Erythema multiforme Condition: Stable Record reviewed to determine appropriate education?: Yes Instructions: ED Erythema Multiforme Follow-Up: [facility] [Provider Group] Prescriptions: dexAMETHasone [Decadron] 4 mg PO DAILY #7 tab HYDROcod/ACETAM 5/325 [[place] 5/325] 1 ea PO Q6H PRN #15 tab PRN Reason: Pain Cetirizine [ZyrTEC] 10 mg PO BID #20 tab Comments: Was suggested following up with dermatology for more evaluation. I included their phone number to call for an appointment. This type of rash is commonly a reaction to medication or an allergy or can be related to a viral illness. Typically would try treating it with antihistamines and steroids. Add Tylenol or hydrocodone if needed for pain. With the steroids, I would anticipate improvement over the next several days. I would still follow-up with dermatology for further evaluation. Discharge Date/Time: 01/07/21 23:15
[2021-01-07] MEDS ORDERED: ACETAMINOPHEN 325 MG TABLET PO STA (22:36)
[2021-01-07] MEDS ORDERED: HYDROcod/ACET 5/325 Prepack 4 PO STA (22:36)
[2021-01-07 23:14] VITALS: BP 113/58
== END 2021-01-07 23:15 | disposition home or self-care (01) ==
LOC: ED 20:31
DX: L51.9 Erythema multiforme, unspecified (principal); L50.9 Urticaria, unspecified; K14.6 Glossodynia; R20.2 Paresthesia of skin; Z87.891 Personal history of nicotine dependence
CPT/HCPCS: 36415; 80053; 81001; 85025; 85651; 99283; 99284; A9270; 87086

== ENCOUNTER 2021-03-04 23:29 | Emergency (ER) | payer MEDICAID ==
--- OUTSIDE RECORDS SUMMARY | 2021-03-04 23:32 | EXTERNAL MEDICAL SUMMARY RPT | Continuity of Care Document ---
:2000 Demographics Phone Unavailable Preferred Language Unknown Marital Status Unknown [employer] Affiliation Unknown Race Unknown Ethnic Group Unknown Author Organization [facility] Address [address] [id number] Phone Care Team Providers Name Role Phone RN Unavailable Unavailable PA-C Unavailable Unavailable Problems date description facility [id number] Sed Rate All [id number] Urticaria, unspecified All [id number] CBC W/Diff/Plt All [id number] COMPREHENSIVE METABOLIC PANEL All 61917801 Unspecified urticaria All 24227242 Urinalysis with Microscopic Exam, Cultu re in Indicated All 28101102 Urticaria All Medications date description facility 92944242 [facility] All [id number] [facility] All 73093255 [facility] All 06352311 [facility] All Procedures date description facility [id number] IM or SQ Injection All date description facility 59190668 Dexamethasone Sodium Phosphate Inj 10mg /1mL All date description facility 62859060 Ketorolac Tromethamine 30 mg/ml Soln A ll date description facility 45150717 [facility] ([facility]) All date description facility 50954352 Diphenhydramine capsules 25 mg All date description facility 57619922 IM or SQ Injection All date description facility 16982225 Dexamethasone Sodium Phosphate Inj 10mg /1mL All date description facility 29955707 Ketorolac Tromethamine 30 mg/ml Soln A ll date description facility [id number] [facility] ([facility]) All date description facility 31246968 Diphenhydramine capsules 25 mg All Results test status date ordered by attending specimen lynnette e ALBUMIN_GLOBULIN_RATIO unknown [id number] unknown unknown unknown T unknown [id number] unknown unknown unknown T unknown [id number] unknown unknown unknown ALKALINE_PHOSPHATASE unknown 40352988 unknown unknown un known ALT_ALANINE_AMINOTRANS unknown 16971995 unknown unknown unknown FERASE T unknown [id number] unknown unknown unknown T unknown 54808488 unknown unknown unknown T unknown 40434029 unknown unknown unknown T unknown 64635455 unknown unknown unknown BASOPHILS_AUTO_ unknown [id number] unknown unknown unknown BILIRUBIN_TOTAL unknown 57077112 unknown unknown unknown T unknown 18924688 unknown unknown unknown T unknown [id number] unknown unknown unknown T unknown 79852784 unknown unknown unknown T unknown 73638406 unknown unknown unknown T unknown [id number] unknown unknown unknown T unknown 12618423 unknown unknown unknown EOSINOPHILS_AUTO_ unknown 30271735 unknown unknown unkno wn T unknown [id number] unknown unknown unknown T unknown 48085872 unknown unknown unknown GFR_-_MDRD unknown 28716591 unknown unknown unknown T unknown 11132372 unknown unknown unknown T unknown 43171624 unknown unknown unknown T unknown 20390392 unknown unknown unknown T unknown 20881002 unknown unknown unknown T unknown 87502934 unknown unknown unknown T unknown [id number] unknown unknown unknown T unknown 92026091 unknown unknown unknown LYMPHOCYTES_AUTO_ unknown 58592873 unknown unknown unkno wn T unknown 37828957 unknown unknown unknown T unknown 64595846 unknown unknown unknown T unknown 38172276 unknown unknown unknown T unknown 78883891 unknown unknown unknown MONOCYTES_AUTO_ unknown 04315301 unknown unknown unknown T unknown 45495815 unknown unknown unknown T unknown 91692057 unknown unknown unknown T unknown 48913392 unknown unknown unknown NEUTROPHILS_AUTO_ unknown 45886815 unknown unknown unkno wn T unknown 29614584 unknown unknown unknown T unknown 94517336 unknown unknown unknown T unknown 65910466 unknown unknown unknown T unknown 16938233 unknown unknown unknown T unknown [id number] unknown unknown unknown BILIRUBIN_URINE unknown 70003817 unknown unknown unknown CLARITY_URINE unknown 15400941 unknown unknown unknown COLOR_URINE unknown 19368737 unknown unknown unknown GLUCOSE_URINE_UA_ unknown [id number] unknown unknown unkno wn KETONES_URINE_UA_ unknown [id number] unknown unknown unkno wn LEUKOCYTE_ESTERASE_URI unknown [id number] unknown unknown unknown NE NITRITE_URINE unknown [id number] unknown unknown unknown PH_URINE unknown 92226043 unknown unknown unknown T unknown 81013601 unknown unknown unknown T unknown 68649723 unknown unknown unknown T unknown 74158668 unknown unknown unknown T unknown 75243953 unknown unknown unknown T unknown 44418321 unknown unknown unknown T unknown 89070430 unknown unknown unknown T unknown 84080851 unknown unknown unknown T unknown 47026961 unknown unknown unknown T unknown 78152138 unknown unknown unknown T unknown 58989546 unknown unknown unknown T unknown 41119671 unknown unknown unknown SPECIFIC_GRAVITY_URINE unknown 25628485 unknown unknown unknown UROBILINOGEN_URINE unknown 82364749 unknown unknown unkn own WBC_URINE unknown [id number] unknown unknown unknown T unknown 39328135 unknown unknown unknown DIPSTICK_URINE_STRIP_L unknown 36283369 unknown unknown unknown OT_NUMBER WBC_urine_on_microscop unknown 07791616 unknown unknown unknown y red_blood_cell_distrib unknown 30340669 unknown unknown unknown ution_width mean_corpuscular_hemog unknown 18068169 unknown unknown unknown lobin_RBC calcium_serum unknown 96581148 unknown unknown unknown protein_urine_semiquan unknown 54412392 unknown unknown unknown titative_dipstick_ glucose_urine_semiquan unknown 63356628 unknown unknown unknown titative chloride_serum unknown 31786902 unknown unknown unknown Erythrocytes_area_in_U unknown 64074595 unknown unknown unknown rine_sediment_by_Micros copy_high_power_field albumin_globulin_ratio unknown 94288917 unknown unknown unknown _serum sodium_serum unknown 11561338 unknown unknown unknown RBC_urine_dipstick unknown 35078761 unknown unknown unkn own mean_corpuscular_hemog unknown 20808713 unknown unknown unknown lobin_concentration_rbc Alanine_aminotransfera unknown 79026867 unknown unknown unknown se_Enzymatic_activity_v olume_in_Serum_or_Plasm a Albumin_Mass_volume_in unknown 60001449 unknown unknown unknown _Serum_or_Plasma Albumin_Presence_in_Ur unknown 86229034 unknown unknown unknown ine Albumin_Globulin_Mass_ unknown 12342773 unknown unknown unknown Ratio_in_Serum_or_Plasm a Alkaline_phosphatase_E unknown 46149541 unknown unknown unknown nzymatic_activity_volum e_in_Blood creatinine_serum unknown 45191091 unknown unknown unknow n Anion_gap_4_in_Serum_o unknown 32438082 unknown unknown unknown r_Plasma Aspartate_aminotransfe unknown 39518583 unknown unknown unknown rase_Enzymatic_activity _volume_in_Serum_or_Pla sma Bilirubin.total_Mass_v unknown 09396647 unknown unknown unknown olume_in_Serum_or_Plasm a albumin_serum unknown 68842861 unknown unknown unknown Calcium_Moles_volume_i unknown 05291163 unknown unknown unknown n_Serum_or_Plasma carbon_dioxide_serum_t unknown 66027205 unknown unknown unknown otal Chloride_Moles_volume_ unknown 38914949 unknown unknown unknown in_Serum_or_Plasma Creatinine_Mass_volume unknown 33220366 unknown unknown unknown _in_Serum_or_Plasma Globulin_Mass_volume_i unknown 75712872 unknown unknown unknown n_Serum Glucose_Mass_volume_in unknown 19134308 unknown unknown unknown _Serum_or_Plasma Glucose_Mass_volume_in unknown 45378450 unknown unknown unknown _Urine neutrophil_count_blood unknown 16600465 unknown unknown unknown lymphocyte_count_blood unknown 04640839 unknown unknown unknown monocyte_count_blood unknown 59375835 unknown unknown un known basophil_count_blood unknown 04503331 unknown unknown un known urine_color unknown 74514182 unknown unknown unknown urine_color unknown 38832161 unknown unknown unknown mean_platelet_volume unknown 37105202 unknown unknown un known anion_gap_serum unknown 18238927 unknown unknown unknown eosinophil_count_blood unknown 27573464 unknown unknown unknown Protein_Mass_volume_in unknown 46671802 unknown unknown unknown _Serum_or_Plasma Sodium_Moles_volume_in unknown 14058603 unknown unknown unknown _Serum_or_Plasma alkaline_phosphatase_s unknown 12683525 unknown unknown unknown arlyn globulin_serum unknown 20651836 unknown unknown unknown Urea_nitrogen_Mass_vol unknown 40590628 unknown unknown unknown ume_in_Serum_or_Plasma mean_corpuscular_volum unknown 56886973 unknown unknown unknown e_RBC bilirubin_urine unknown 13686704 unknown unknown unknown bilirubin_urine unknown 17528917 unknown unknown unknown ketones_urine_by_test_ unknown 25465346 unknown unknown unknown strip ketones_urine_by_test_ unknown 88966527 unknown unknown unknown strip nitrite_urine_semiquan unknown 54050357 unknown unknown unknown titative nitrite_urine_semiquan unknown 24370532 unknown unknown unknown titative pH_urine_semiquantitat unknown 95372168 unknown unknown unknown huang specific_gravity_urine unknown 55627059 unknown unknown unknown specific_gravity_urine unknown 73362674 unknown unknown unknown urobilinogen_urine_sem unknown 00477863 unknown unknown unknown iquantitative_dipstick_ urobilinogen_urine_sem unknown 58225912 unknown unknown unknown iquantitative_dipstick_ leukocyte_esterase_uri unknown 34102362 unknown unknown unknown ne_by_dipstick leukocyte_esterase_uri unknown 87150602 unknown unknown unknown ne_by_dipstick appearance_urine unknown 80680519 unknown unknown unknow n glucose_urine unknown 21619355 unknown unknown unknown potassium_blood unknown 14726485 unknown unknown unknown blood_glucose unknown 44998666 unknown unknown unknown protein_total_serum unknown 25660750 unknown unknown unk nown aspartate_aminotransfe unknown 93098876 unknown unknown unknown rase_SGOT_serum carbon_dioxide_serum_t unknown 92015139 unknown unknown unknown otal alanine_aminotransfera unknown 66539861 unknown unknown unknown se_SGPT_serum bilirubin_serum_total unknown 32273317 unknown unknown u nknown Erythrocyte_sedimentat unknown 25595634 unknown unknown unknown ion_rate_by_Westergren_ method Hematocrit_Volume_Frac unknown 00640411 unknown unknown unknown tion_of_Blood_by_Automa ted_count urinalysis_routine unknown 02531753 unknown unknown unkn own Glomerular_filtration_ unknown 36999934 unknown unknown unknown rate_1.73_sq_M.predicte d_among_non-blacks_Volu me_Rate_Area_in_Serum_P lasma_or_Blood_by_Creat inine-based_formula_MDR D_ pH_study_of_acidity unknown 42490629 unknown unknown unk nown clarity_urine_point unknown 68720073 unknown unknown unk nown Appearance_of_Urine unknown 21610481 unknown unknown unk nown Bilirubin.total_Presen unknown 11795239 unknown unknown unknown ce_in_Urine_by_Test_str ip Bilirubin.total_Presen unknown 47651604 unknown unknown unknown ce_in_Urine_by_Test_str ip Color_of_Urine unknown 30564585 unknown unknown unknown Color_of_Urine unknown 28323913 unknown unknown unknown Glucose_Mass_volume_in unknown 14133466 unknown unknown unknown _Urine_by_Test_strip Ketones_Mass_volume_in unknown 91687812 unknown unknown unknown _Urine_by_Test_strip Ketones_Mass_volume_in unknown 65804555 unknown unknown unknown _Urine_by_Test_strip Leukocyte_esterase_Pre unknown 62951636 unknown unknown unknown sence_in_Urine_by_Test_ strip Leukocyte_esterase_Pre unknown 54956981 unknown unknown unknown sence_in_Urine_by_Test_ strip Nitrite_Presence_in_Ur unknown 60525227 unknown unknown unknown ine_by_Test_strip Nitrite_Presence_in_Ur unknown 41462164 unknown unknown unknown ine_by_Test_strip pH_of_Urine_by_Test_st unknown 29830627 unknown unknown unknown rip Specific_gravity_of_Ur unknown 90411467 unknown unknown unknown ine_by_Test_strip Specific_gravity_of_Ur unknown 59106970 unknown unknown unknown ine_by_Test_strip Urobilinogen_Presence_ unknown 48568528 unknown unknown unknown in_Urine_by_Test_strip Urobilinogen_Presence_ unknown 01376507 unknown unknown unknown in_Urine_by_Test_strip WBC_urine_on_microscop unknown 33209040 unknown unknown unknown y potassium_blood unknown 06309557 unknown unknown unknown erythrocyte_sedimentat unknown 58074829 unknown unknown unknown ion_rate hematocrit_blood unknown 28374305 unknown unknown unknow n hemoglobin_blood unknown 42951832 unknown unknown unknow n platelet_count unknown 90166356 unknown unknown unknown Glomerular_Filtration_ unknown 96239251 unknown unknown unknown rate Leukocytes_volume_in_B unknown 04536207 unknown unknown unknown lood_by_Automated_count erythrocyte_RBC_count unknown 99144256 unknown unknown u nknown leukocyte_count_blood unknown 59736328 unknown unknown u nknown Basophils_volume_in_Bl unknown 57380997 unknown unknown unknown ood_by_Manual_count eosinophil_count_blood unknown 37738875 unknown unknown unknown Hemoglobin_Mass_volume unknown 58647997 unknown unknown unknown _in_Blood lymphocyte_count_blood unknown 59334953 unknown unknown unknown monocyte_count_blood unknown 09067545 unknown unknown un known neutrophil_count_blood unknown 67967525 unknown unknown unknown Platelet_mean_volume_E unknown 23751952 unknown unknown unknown ntitic_volume_in_Blood_ by_Rees-Mimi Platelets_volume_in_Bl unknown 39876226 unknown unknown unknown ood_by_Automated_count MCH_Entitic_mass_by_Au unknown 18787750 unknown unknown unknown tomated_count MCV_Entitic_volume_by_ unknown 43803487 unknown unknown unknown Automated_count Erythrocyte_distributi unknown 14444037 unknown unknown unknown on_width_Ratio_by_Autom ated_count Erythrocytes_volume_in unknown 42713241 unknown unknown unknown _Blood_by_Automated_cou nt urea_nitrogen_blood unknown 51752208 unknown unknown unk nown ALBUMIN_GLOBULIN_RATIO unknown 58790388 unknown unknown unknown T unknown 49270271 unknown unknown unknown T unknown 56819197 unknown unknown unknown ALKALINE_PHOSPHATASE unknown 37380656 unknown unknown un known ALT_ALANINE_AMINOTRANS unknown 80066275 unknown unknown unknown FERASE T unknown 75243478 unknown unknown unknown T unknown 25096461 unknown unknown unknown T unknown 45474574 unknown unknown unknown T unknown 03150939 unknown unknown unknown BASOPHILS_AUTO_ unknown 87085667 unknown unknown unknown BILIRUBIN_TOTAL unknown 58401953 unknown unknown unknown T unknown 50521546 unknown unknown unknown T unknown 98604931 unknown unknown unknown T unknown 50831693 unknown unknown unknown T unknown 32109878 unknown unknown unknown T unknown 69263614 unknown unknown unknown T unknown 93632757 unknown unknown unknown EOSINOPHILS_AUTO_ unknown 20904821 unknown unknown unkno wn T unknown 89342754 unknown unknown unknown T unknown 90480897 unknown unknown unknown GFR_-_MDRD unknown 56225275 unknown unknown unknown T unknown 75593298 unknown unknown unknown T unknown 43473435 unknown unknown unknown T unknown 92518188 unknown unknown unknown T unknown 25054253 unknown unknown unknown T unknown 71844896 unknown unknown unknown T unknown 54006245 unknown unknown unknown T unknown 41839410 unknown unknown unknown LYMPHOCYTES_AUTO_ unknown 01584710 unknown unknown unkno wn T unknown 86429488 unknown unknown unknown T unknown 69174309 unknown unknown unknown T unknown 04913139 unknown unknown unknown T unknown 91859265 unknown unknown unknown MONOCYTES_AUTO_ unknown 26409990 unknown unknown unknown T unknown 16918812 unknown unknown unknown T unknown 46390468 unknown unknown unknown T unknown 54989077 unknown unknown unknown NEUTROPHILS_AUTO_ unknown 82184721 unknown unknown unkno wn T unknown 97983064 unknown unknown unknown T unknown 47954521 unknown unknown unknown T unknown 73684374 unknown unknown unknown T unknown 58651115 unknown unknown unknown T unknown 78352859 unknown unknown unknown BILIRUBIN_URINE unknown 94672128 unknown unknown unknown CLARITY_URINE unknown 67271797 unknown unknown unknown COLOR_URINE unknown 72222725 unknown unknown unknown GLUCOSE_URINE_UA_ unknown [id number] unknown unknown unkno wn KETONES_URINE_UA_ unknown 53596950 unknown unknown unkno wn LEUKOCYTE_ESTERASE_URI unknown 38664231 unknown unknown unknown NE NITRITE_URINE unknown 74892682 unknown unknown unknown PH_URINE unknown 92097087 unknown unknown unknown T unknown 34295528 unknown unknown unknown T unknown 84276826 unknown unknown unknown T unknown 87772045 unknown unknown unknown T unknown 64337996 unknown unknown unknown T unknown 46277868 unknown unknown unknown T unknown 15467708 unknown unknown unknown T unknown 69569450 unknown unknown unknown T unknown 38197210 unknown unknown unknown T unknown 99388363 unknown unknown unknown T unknown 04814448 unknown unknown unknown T unknown 70589826 unknown unknown unknown SPECIFIC_GRAVITY_URINE unknown 30562261 unknown unknown unknown UROBILINOGEN_URINE unknown 26329405 unknown unknown unkn own WBC_URINE unknown 97460258 unknown unknown unknown T unknown 65501080 unknown unknown unknown DIPSTICK_URINE_STRIP_L unknown 30528035 unknown unknown unknown OT_NUMBER WBC_urine_on_microscop unknown 02791748 unknown unknown unknown y red_blood_cell_distrib unknown 34748717 unknown unknown unknown ution_width mean_corpuscular_hemog unknown 02359009 unknown unknown unknown lobin_RBC calcium_serum unknown 67430139 unknown unknown unknown protein_urine_semiquan unknown 78259612 unknown unknown unknown titative_dipstick_ glucose_urine_semiquan unknown 84001324 unknown unknown unknown titative chloride_serum unknown 06273947 unknown unknown unknown Erythrocytes_area_in_U unknown 98320491 unknown unknown unknown rine_sediment_by_Micros copy_high_power_field albumin_globulin_ratio unknown 16953677 unknown unknown unknown _serum sodium_serum unknown 23669215 unknown unknown unknown RBC_urine_dipstick unknown 86094646 unknown unknown unkn own mean_corpuscular_hemog unknown 09181323 unknown unknown unknown lobin_concentration_rbc Alanine_aminotransfera unknown 10034317 unknown unknown unknown se_Enzymatic_activity_v olume_in_Serum_or_Plasm a Albumin_Mass_volume_in unknown 01650631 unknown unknown unknown _Serum_or_Plasma Albumin_Presence_in_Ur unknown 45367639 unknown unknown unknown ine Albumin_Globulin_Mass_ unknown 11347588 unknown unknown unknown Ratio_in_Serum_or_Plasm a Alkaline_phosphatase_E unknown 38939407 unknown unknown unknown nzymatic_activity_volum e_in_Blood creatinine_serum unknown 14246907 unknown unknown unknow n Anion_gap_4_in_Serum_o unknown 75084441 unknown unknown unknown r_Plasma Aspartate_aminotransfe unknown 61279890 unknown unknown unknown rase_Enzymatic_activity _volume_in_Serum_or_Pla sma Bilirubin.total_Mass_v unknown 74465063 unknown unknown unknown olume_in_Serum_or_Plasm a albumin_serum unknown 32167463 unknown unknown unknown Calcium_Moles_volume_i unknown 49323855 unknown unknown unknown n_Serum_or_Plasma carbon_dioxide_serum_t unknown 42661887 unknown unknown unknown otal Chloride_Moles_volume_ unknown 73472637 unknown unknown unknown in_Serum_or_Plasma Creatinine_Mass_volume unknown 29182876 unknown unknown unknown _in_Serum_or_Plasma Globulin_Mass_volume_i unknown 01250817 unknown unknown unknown n_Serum Glucose_Mass_volume_in unknown 87118194 unknown unknown unknown _Serum_or_Plasma Glucose_Mass_volume_in unknown 17575457 unknown unknown unknown _Urine neutrophil_count_blood unknown 57168486 unknown unknown unknown lymphocyte_count_blood unknown 93437988 unknown unknown unknown monocyte_count_blood unknown 48734003 unknown unknown un known basophil_count_blood unknown 26564030 unknown unknown un known urine_color unknown 55798194 unknown unknown unknown mean_platelet_volume unknown 05993827 unknown unknown un known anion_gap_serum unknown 11951242 unknown unknown unknown eosinophil_count_blood unknown 49621781 unknown unknown unknown Protein_Mass_volume_in unknown 78301333 unknown unknown unknown _Serum_or_Plasma Sodium_Moles_volume_in unknown 21408986 unknown unknown unknown _Serum_or_Plasma alkaline_phosphatase_s unknown 41909831 unknown unknown unknown arlyn globulin_serum unknown 81300778 unknown unknown unknown Urea_nitrogen_Mass_vol unknown 77140277 unknown unknown unknown ume_in_Serum_or_Plasma mean_corpuscular_volum unknown 70514047 unknown unknown unknown e_RBC bilirubin_urine unknown 98309253 unknown unknown unknown ketones_urine_by_test_ unknown 39032432 unknown unknown unknown strip nitrite_urine_semiquan unknown 92585271 unknown unknown unknown titative pH_urine_semiquantitat unknown 12235673 unknown unknown unknown huang specific_gravity_urine unknown 77512338 unknown unknown unknown urobilinogen_urine_sem unknown 93843498 unknown unknown unknown iquantitative_dipstick_ leukocyte_esterase_uri unknown 55218261 unknown unknown unknown ne_by_dipstick appearance_urine unknown 29004911 unknown unknown unknow n glucose_urine unknown 06789086 unknown unknown unknown potassium_blood unknown 56288780 unknown unknown unknown blood_glucose unknown 22777726 unknown unknown unknown protein_total_serum unknown 40978107 unknown unknown unk nown aspartate_aminotransfe unknown 01519735 unknown unknown unknown rase_SGOT_serum carbon_dioxide_serum_t unknown 09111275 unknown unknown unknown otal alanine_aminotransfera unknown 04043122 unknown unknown unknown se_SGPT_serum bilirubin_serum_total unknown 01747427 unknown unknown u nknown Erythrocyte_sedimentat unknown 71527906 unknown unknown unknown ion_rate_by_Westergren_ method Hematocrit_Volume_Frac unknown 84625106 unknown unknown unknown tion_of_Blood_by_Automa ted_count urinalysis_routine unknown 50965965 unknown unknown unkn own Glomerular_filtration_ unknown 31461575 unknown unknown unknown rate_1.73_sq_M.predicte d_among_non-blacks_Volu me_Rate_Area_in_Serum_P lasma_or_Blood_by_Creat inine-based_formula_MDR D_ pH_study_of_acidity unknown 09577107 unknown unknown unk nown clarity_urine_point unknown 01870327 unknown unknown unk nown Appearance_of_Urine unknown 96102374 unknown unknown unk nown Bilirubin.total_Presen unknown 11724044 unknown unknown unknown ce_in_Urine_by_Test_str ip Color_of_Urine unknown 06994969 unknown unknown unknown Glucose_Mass_volume_in unknown 20902421 unknown unknown unknown _Urine_by_Test_strip Ketones_Mass_volume_in unknown 90725644 unknown unknown unknown _Urine_by_Test_strip Leukocyte_esterase_Pre unknown 53871041 unknown unknown unknown sence_in_Urine_by_Test_ strip Nitrite_Presence_in_Ur unknown 39660812 unknown unknown unknown ine_by_Test_strip pH_of_Urine_by_Test_st unknown 78828792 unknown unknown unknown rip Specific_gravity_of_Ur unknown 77089344 unknown unknown unknown ine_by_Test_strip Urobilinogen_Presence_ unknown 37164693 unknown unknown unknown in_Urine_by_Test_strip WBC_urine_on_microscop unknown 16351415 unknown unknown unknown y potassium_blood unknown 25074612 unknown unknown unknown erythrocyte_sedimentat unknown 95714007 unknown unknown unknown ion_rate hematocrit_blood unknown 74071618 unknown unknown unknow n hemoglobin_blood unknown 18647165 unknown unknown unknow n platelet_count unknown 55205210 unknown unknown unknown Glomerular_Filtration_ unknown 57228982 unknown unknown unknown rate Leukocytes_volume_in_B unknown 73817374 unknown unknown unknown lood_by_Automated_count erythrocyte_RBC_count unknown 91588188 unknown unknown u nknown leukocyte_count_blood unknown 99635769 unknown unknown u nknown Basophils_volume_in_Bl unknown 21587532 unknown unknown unknown ood_by_Manual_count eosinophil_count_blood unknown 48964527 unknown unknown unknown Hemoglobin_Mass_volume unknown 27354062 unknown unknown unknown _in_Blood lymphocyte_count_blood unknown 60360164 unknown unknown unknown monocyte_count_blood unknown 19035088 unknown unknown un known neutrophil_count_blood unknown 11686640 unknown unknown unknown Platelet_mean_volume_E unknown 00328618 unknown unknown unknown ntitic_volume_in_Blood_ by_Rees-Mimi Platelets_volume_in_Bl unknown 79088304 unknown unknown unknown ood_by_Automated_count MCH_Entitic_mass_by_Au unknown 41453083 unknown unknown unknown tomated_count MCV_Entitic_volume_by_ unknown 98740896 unknown unknown unknown Automated_count Erythrocyte_distributi unknown 71818764 unknown unknown unknown on_width_Ratio_by_Autom ated_count Erythrocytes_volume_in unknown 63190674 unknown unknown unknown _Blood_by_Automated_cou nt urea_nitrogen_blood unknown 42941457 unknown unknown [facility] observation status value reference units lab code abn ormal line range notes All ALBUMIN_GLOB unknown 1.3 unknown AGRATIO unknow n unknown ULIN_RATIO All T unknown 4.3 unknown g/dL ALB unknown unkn own All T unknown 64 unknown U/L ALK_PHOS unknown un known All ALKALINE_PHO unknown 64 unknown U/L ALP unknown unknown SPHATASE All ALT_ALANINE_ unknown 17 unknown U/L ALT unknown unknown AMINOTRANSFER ASE All T unknown 17 unknown U/L ALT_SGPT unknown un known _ All T unknown 19 unknown U/L AST unknown unkn own All T unknown 1.3 unknown A_G_RATI unknown un known O All T unknown 0.1 10 unknown BASO_AUT unknown un known 3/UL O_ All BASOPHILS_AU unknown 0.1 10 unknown BA_ unknown unknown TO_ 3/UL All BILIRUBIN_TO unknown 0.8 unknown mg/dL BILIT unknown unknown ISRAEL All T unknown 11 unknown mg/dL BUN unknown unkn own All T unknown 9.8 unknown mg/dL CA unknown unkn own All T unknown 103 unknown mmol/ CL unknown unkn own L All T unknown 25 unknown mmol/ CO2 unknown unkn own L All T unknown 0.6 unknown mg/dL CREAT unknown unkn own All T unknown 0.3 10 unknown EOS_AUTO unknown un known 3/UL _ All EOSINOPHILS_ unknown 0.3 10 unknown EO_ unknown unknown AUTO_ 3/UL All T unknown 2 unknown mm/h ESR unknown unkn own All T unknown 10.0 unknown GAP unknown unkn own All GFR_-_MDRD unknown 127 unknown mL/mi GFR unknown unknown n All T unknown 127 unknown mL/mi GFR_-_MD unknown un known n RD All T unknown 3.3 unknown GLOB unknown unkn own All T unknown 83 unknown mg/dL GLU unknown unkn own All T unknown 41.9 unknown % HCT unknown unkn own All T unknown 13.3 unknown g/dL HGB unknown unkn own All T unknown 3.9 unknown meq/L K unknown unkn own All T unknown 2.4 10 unknown LYMPH_AU unknown un known 3/UL TO_ All LYMPHOCYTES_ unknown 2.4 10 unknown LY_ unknown unknown AUTO_ 3/UL All T unknown 29.2 unknown pg MCH unknown unkn own All T unknown 31.7 unknown g/dL MCHC unknown unkn own All T unknown 91.9 unknown fL MCV unknown unkn own All T unknown 0.7 10 unknown MONO_AUT unknown un known 3/UL O_ All MONOCYTES_AU unknown 0.7 10 unknown MO_ unknown unknown TO_ 3/UL All T unknown 9.7 unknown fL MPV unknown unkn own All T unknown 138 unknown mmol/ NA unknown unkn own L All T unknown 5.1 10 unknown NEUT_AUT unknown un known 3/UL O_ All NEUTROPHILS_ unknown 5.1 10 unknown NE_ unknown unknown AUTO_ 3/UL All T unknown 284 10 unknown PLT unknown unkn own 3/UL All T unknown 7.6 unknown g/dL PRO_TOTA unknown un known L All T unknown 4.56 10 unknown RBC unknown unk nown 6/UL All T unknown 12.8 unknown % RDW unknown unkn own All T unknown 0.8 unknown mg/dL TOTAL_BI unknown un known LI All BILIRUBIN_UR unknown NEGATIVE unknown UBIL unkno wn unknown INE All CLARITY_URIN unknown HAZY unknown UCLAR unknown unknown E All COLOR_URINE unknown YELLOW unknown UCOL unknown unknown All GLUCOSE_URIN unknown NEGATIVE unknown UGLUC unkno wn unknown E_UA_ mg/dL All KETONES_URIN unknown NEGATIVE unknown UKET unkno wn unknown E_UA_ All LEUKOCYTE_ES unknown NEGATIVE unknown ULEUK unkno wn unknown TERASE_URINE All NITRITE_URIN unknown NEGATIVE unknown UNITRITE unk nown unknown E All PH_URINE unknown 6.5 unknown UPH unknown un known All T unknown NEGATIVE unknown UR_BILI unknown u nknown All T unknown HAZY unknown UR_CLARI unknown un known TY All T unknown YELLOW unknown UR_COLOR unknown un known All T unknown NEGATIVE unknown UR_GLU unknown un known mg/dL All T unknown NEGATIVE unknown UR_KETO_ unknown unknown UA_ All T unknown NEGATIVE unknown UR_LEU_E unknown unknown STERASE All T unknown NEGATIVE unknown UR_NIT unknown un known All T unknown 6.5 unknown UR_PH unknown unkn own All T unknown 1.025 unknown UR_SG unknown unkn own All T unknown 0.2 unknown UR_URO unknown unkn own (NORMAL) All T unknown 0-3 /HPF unknown UR_WBC unknown un known All SPECIFIC_GRA unknown 1.025 unknown USG unknown unknown VITY_URINE All UROBILINOGEN unknown 0.2 unknown UUROBIL unknow n unknown _URINE (NORMAL) All WBC_URINE unknown 0-3 /HPF unknown UWBC unknown unknown All T unknown 8.4 X10 unknown WBC unknown unk nown 3/UL All DIPSTICK_URI unknown 6019 unknown _101400 unknow n unknown NE_STRIP_LOT_ NUMBER All WBC_urine_on unknown 0-3 /HPF unknown _1016 unkno wn unknown _microscopy All red_blood_ce unknown 12.8 unknown % _1030 unknown unknown ll_distributi on_width All mean_corpusc unknown 29.2 unknown pg _1031 unknown unknown ular_hemoglob in_RBC All calcium_seru unknown 9.8 unknown mg/dL _11 unknown unknown m All protein_urin unknown trace unknown _118 unknown unknown e_semiquantit ative_dipstic k_ All glucose_urin unknown negative unknown _123 unkno wn unknown e_semiquantit ative All chloride_ser unknown 103 unknown mmol/ _13 unknown unknown um L All Erythrocytes unknown non-hemol unknown _13945-1 un known unknown _area_in_Urin yzed e_sediment_by moderate _Microscopy_h igh_power_fie ld All albumin_glob unknown 1.3 unknown _146 unknown unknown ulin_ratio_se rum All sodium_serum unknown 138 unknown mmol/ _159 unknown unknown L All RBC_urine_di unknown non-hemol unknown _1700005 un known unknown pstick yzed moderate All mean_corpusc unknown 31.7 unknown g/dL _17029 unknown unknown ular_hemoglob in_concentrat ion_rbc All Alanine_amin unknown 17 unknown U/L _1742-6 unknow n unknown otransferase_ Enzymatic_act ivity_volume_ in_Serum_or_P lasma All Albumin_Mass unknown 4.3 unknown g/dL _1751-7 unknow n unknown _volume_in_Se rum_or_Plasma All Albumin_Pres unknown trace unknown _1753-3 unknow n unknown ence_in_Urine All Albumin_Glob unknown 1.3 unknown _1759-0 unknow n unknown ulin_Mass_Rat io_in_Serum_o r_Plasma All Alkaline_pho unknown 64 unknown U/L _1783-0 unknow n unknown sphatase_Enzy matic_activit y_volume_in_B lood All creatinine_s unknown 0.6 unknown mg/dL _18 unknown unknown arlyn All Anion_gap_4_ unknown 10.0 unknown _1863-0 unknow n unknown in_Serum_or_P lasma All Aspartate_am unknown 19 unknown U/L _1920-8 unknow n unknown inotransferas e_Enzymatic_a ctivity_volum e_in_Serum_or _Plasma All Bilirubin.to unknown 0.8 unknown mg/dL _1974- unknow n unknown tal_Mass_volu me_in_Serum_o r_Plasma All albumin_seru unknown 4.3 unknown g/dL _2 unknown unknown m All Calcium_Mole unknown 9.8 unknown mg/dL _1999-8 unknow n unknown s_volume_in_S erum_or_Plasm a All carbon_dioxi unknown 25 unknown mmol/ _2028-9 unknow n unknown de_serum_tota L l All Chloride_Mol unknown 103 unknown mmol/ _2075-0 unknow n unknown es_volume_in_ L Serum_or_Plas ma All Creatinine_M unknown 0.6 unknown mg/dL _2160-0 unknow n unknown ass_volume_in _Serum_or_Pla sma All Globulin_Mas unknown 3.3 unknown _2336-6 unknow n unknown s_volume_in_S arlyn All Glucose_Mass unknown 83 unknown mg/dL _2345-7 unknow n unknown _volume_in_Se rum_or_Plasma All Glucose_Mass unknown NEGATIVE unknown _2350-7 unkn own unknown _volume_in_Ur mg/dL ine All neutrophil_c unknown 5.1 10 unknown _2418 unknown unknown ount_blood 3/UL All lymphocyte_c unknown 2.4 10 unknown _2420 unknown unknown ount_blood 3/UL All monocyte_cou unknown 0.7 10 unknown _2422 unknown unknown nt_blood 3/UL All basophil_cou unknown 0.1 10 unknown _2427 unknown unknown nt_blood 3/UL All urine_color unknown YELLOW unknown _2751 unknown unknown All urine_color unknown straw unknown _2751 unknown unknown All mean_platele unknown 9.7 unknown fL _2784 unknown unknown t_volume All anion_gap_se unknown 10.0 unknown _279 unknown unknown rum All eosinophil_c unknown 0.3 10 unknown _285 unknown unknown ount_blood 3/UL All Protein_Mass unknown 7.6 unknown g/dL _2885-2 unknow n unknown _volume_in_Se rum_or_Plasma All Sodium_Moles unknown 138 unknown mmol/ _2951-2 unknow n unknown _volume_in_Se L rum_or_Plasma All alkaline_pho unknown 64 unknown U/L _3 unknown unknown sphatase_seru m All globulin_ser unknown 3.3 unknown _3059 unknown unknown um All Urea_nitroge unknown 11 unknown mg/dL _3094-0 unknow n unknown n_Mass_volume _in_Serum_or_ Plasma All mean_corpusc unknown 91.9 unknown fL _315 unknown unknown ular_volume_R BC All bilirubin_ur unknown NEGATIVE unknown _319 unkno wn unknown ine All bilirubin_ur unknown negative unknown _319 unkno wn unknown ine All ketones_urin unknown NEGATIVE unknown _322 unkno wn unknown e_by_test_str ip All ketones_urin unknown trace (5) unknown _322 unkn own unknown e_by_test_str ip All nitrite_urin unknown NEGATIVE unknown _323 unkno wn unknown e_semiquantit ative All nitrite_urin unknown negative unknown _323 unkno wn unknown e_semiquantit ative All pH_urine_sem unknown 6.5 unknown _324 unknown unknown iquantitative All specific_gra unknown 1.015 unknown _325 unknown unknown vity_urine All specific_gra unknown 1.025 unknown _325 unknown unknown vity_urine All urobilinogen unknown 0.2 unknown _326 unknown unknown _urine_semiqu (NORMAL) antitative_di pstick_ All urobilinogen unknown 0.2 unknown _326 unknown unknown _urine_semiqu antitative_di pstick_ All leukocyte_es unknown NEGATIVE unknown _327 unkno wn unknown terase_urine_ by_dipstick All leukocyte_es unknown negative unknown _327 unkno wn unknown terase_urine_ by_dipstick All appearance_u unknown cloudy unknown _328 unknown unknown rine All glucose_urin unknown NEGATIVE unknown _3369 unkno wn unknown e mg/dL All potassium_bl unknown 3.9 unknown meq/L _3483 unknown unknown ood All blood_glucos unknown 83 unknown mg/dL _3565 unknown unknown e All protein_tota unknown 7.6 unknown g/dL _36 unknown unknown l_serum All aspartate_am unknown 19 unknown U/L _39 unknown unknown inotransferas e_SGOT_serum All carbon_dioxi unknown 25 unknown mmol/ _3962 unknown unknown de_serum_tota L l All alanine_amin unknown 17 unknown U/L _40 unknown unknown otransferase_ SGPT_serum All bilirubin_se unknown 0.8 unknown mg/dL _43 unknown unknown rum_total All Erythrocyte_ unknown 2 unknown mm/h _4537-7 unknow n unknown sedimentation _rate_by_[place]_method All Hematocrit_V unknown 41.9 unknown % _4544-3 unknow n unknown olume_Fractio n_of_Blood_by _Automated_co unt All urinalysis_r unknown Clean unknown _47 unknown unknown outine Catch All Glomerular_fi unknown 127 unknown mL/mi _48642-3 unkno wn unknown ltration_rate n _1.73_sq_M.pr edicted_among _non-blacks_V olume_Rate_Ar ea_in_Serum_P lasma_or_Bloo d_by_Creatini ne-based_form ula_MDRD_ All pH_study_of_ unknown 6.5 unknown _51641 unknown unknown acidity All clarity_urin unknown HAZY unknown _5589 unknown unknown e_point All Appearance_o unknown cloudy unknown _5767-9 unknow n unknown f_Urine All Bilirubin.to unknown NEGATIVE unknown _5770-3 unkn own unknown tal_Presence_ in_Urine_by_T est_strip All Bilirubin.to unknown negative unknown _5770-3 unkn own unknown tal_Presence_ in_Urine_by_T est_strip All Color_of_Uri unknown YELLOW unknown _5778-6 unknow n unknown ne All Color_of_Uri unknown straw unknown _5778-6 unknow n unknown ne All Glucose_Mass unknown negative unknown _5792-7 unkn own unknown _volume_in_Ur ine_by_Test_s trip All Ketones_Mass unknown NEGATIVE unknown _5797-6 unkn own unknown _volume_in_Ur ine_by_Test_s trip All Ketones_Mass unknown trace (5) unknown _5797-6 unk nown unknown _volume_in_Ur ine_by_Test_s trip All Leukocyte_es unknown NEGATIVE unknown _5799-2 unkn own unknown terase_Presen ce_in_Urine_b y_Test_strip All Leukocyte_es unknown negative unknown _5799-2 unkn own unknown terase_Presen ce_in_Urine_b y_Test_strip All Nitrite_Pres unknown NEGATIVE unknown _5802-4 unkn own unknown ence_in_Urine _by_Test_stri p All Nitrite_Pres unknown negative unknown _5802-4 unkn own unknown ence_in_Urine _by_Test_stri p All pH_of_Urine_ unknown 6.5 unknown _5803-2 unknow n unknown by_Test_strip All Specific_gra unknown 1.015 unknown _5811-5 unknow n unknown vity_of_Urine _by_Test_stri p All Specific_gra unknown 1.025 unknown _5811-5 unknow n unknown vity_of_Urine _by_Test_stri p All Urobilinogen unknown 0.2 unknown _5818-0 unknow n unknown _Presence_in_ (NORMAL) Urine_by_Test _strip All Urobilinogen unknown 0.2 unknown _5818-0 unknow n unknown _Presence_in_ Urine_by_Test _strip All WBC_urine_on unknown 0-3 /HPF unknown _5821-4 unkn own unknown _microscopy All potassium_bl unknown 3.9 unknown meq/L _6298-4 unknow n unknown ood All erythrocyte_ unknown 2 unknown mm/h _63 unknown unknown sedimentation _rate All hematocrit_b unknown 41.9 unknown % _64 unknown unknown lood All hemoglobin_b unknown 13.3 unknown g/dL _65 unknown unknown lood All platelet_cou unknown 284 10 unknown _66 unknown unknown nt 3/UL All Glomerular_F unknown 127 unknown mL/mi _66455 unknown unknown iltration_rat n e All Leukocytes_v unknown 8.4 X10 unknown _6690-2 unkno wn unknown olume_in_Bloo 3/UL d_by_Automate d_count All erythrocyte_ unknown 4.56 10 unknown _67 unknow n unknown RBC_count 6/UL All leukocyte_co unknown 8.4 X10 unknown _68 unknow n unknown unt_blood 3/UL All Basophils_vo unknown 0.1 10 unknown _705-4 unknown unknown lume_in_Blood 3/UL _by_Manual_co unt All eosinophil_c unknown 0.3 10 unknown _712-0 unknown unknown ount_blood 3/UL All Hemoglobin_M unknown 13.3 unknown g/dL _718-7 unknown unknown ass_volume_in _Blood All lymphocyte_c unknown 2.4 10 unknown _732-8 unknown unknown ount_blood 3/UL All monocyte_cou unknown 0.7 10 unknown _743-5 unknown unknown nt_blood 3/UL All neutrophil_c unknown 5.1 10 unknown _752-6 unknown unknown ount_blood 3/UL All Platelet_mea unknown 9.7 unknown fL _776-5 unknown unknown n_volume_Enti tic_volume_in _Blood_by_[place] All Platelets_vo unknown 284 10 unknown _777-3 unknown unknown lume_in_Blood 3/UL _by_Automated _count All MCH_Entitic_ unknown 29.2 unknown pg _785-6 unknown unknown mass_by_Autom ated_count All MCV_Entitic_ unknown 91.9 unknown fL _787-2 unknown unknown volume_by_Aut omated_count All Erythrocyte_ unknown 12.8 unknown % _788-0 unknown unknown distribution_ width_Ratio_b y_Automated_c ount All Erythrocytes unknown 4.56 10 unknown _789-8 unknow n unknown _volume_in_Bl 6/UL ood_by_Automa ted_count All urea_nitroge unknown 11 unknown mg/dL _9 unknown unknown n_blood All ALBUMIN_GLOB unknown 1.3 unknown AGRATIO unknow n unknown ULIN_RATIO All T unknown 4.3 unknown g/dL ALB unknown unkn own All T unknown 64 unknown U/L ALK_PHOS unknown un known All ALKALINE_PHO unknown 64 unknown U/L ALP unknown unknown SPHATASE All ALT_ALANINE_ unknown 17 unknown U/L ALT unknown unknown AMINOTRANSFER ASE All T unknown 17 unknown U/L ALT_SGPT unknown un known _ All T unknown 19 unknown U/L AST unknown unkn own All T unknown 1.3 unknown A_G_RATI unknown un known O All T unknown 0.1 10 unknown BASO_AUT unknown un known 3/UL O_ All BASOPHILS_AU unknown 0.1 10 unknown BA_ unknown unknown TO_ 3/UL All BILIRUBIN_TO unknown 0.8 unknown mg/dL BILIT unknown unknown ISRAEL All T unknown 11 unknown mg/dL BUN unknown unkn own All T unknown 9.8 unknown mg/dL CA unknown unkn own All T unknown 103 unknown mmol/ CL unknown unkn own L All T unknown 25 unknown mmol/ CO2 unknown unkn own L All T unknown 0.6 unknown mg/dL CREAT unknown unkn own All T unknown 0.3 10 unknown EOS_AUTO unknown un known 3/UL _ All EOSINOPHILS_ unknown 0.3 10 unknown EO_ unknown unknown AUTO_ 3/UL All T unknown 2 unknown mm/h ESR unknown unkn own All T unknown 10.0 unknown GAP unknown unkn own All GFR_-_MDRD unknown 127 unknown mL/mi GFR unknown unknown n All T unknown 127 unknown mL/mi GFR_-_MD unknown un known n RD All T unknown 3.3 unknown GLOB unknown unkn own All T unknown 83 unknown mg/dL GLU unknown unkn own All T unknown 41.9 unknown % HCT unknown unkn own All T unknown 13.3 unknown g/dL HGB unknown unkn own All T unknown 3.9 unknown meq/L K unknown unkn own All T unknown 2.4 10 unknown LYMPH_AU unknown un known 3/UL TO_ All LYMPHOCYTES_ unknown 2.4 10 unknown LY_ unknown unknown AUTO_ 3/UL All T unknown 29.2 unknown pg MCH unknown unkn own All T unknown 31.7 unknown g/dL MCHC unknown unkn own All T unknown 91.9 unknown fL MCV unknown unkn own All T unknown 0.7 10 unknown MONO_AUT unknown un known 3/UL O_ All MONOCYTES_AU unknown 0.7 10 unknown MO_ unknown unknown TO_ 3/UL All T unknown 9.7 unknown fL MPV unknown unkn own All T unknown 138 unknown mmol/ NA unknown unkn own L All T unknown 5.1 10 unknown NEUT_AUT unknown un known 3/UL O_ All NEUTROPHILS_ unknown 5.1 10 unknown NE_ unknown unknown AUTO_ 3/UL All T unknown 284 10 unknown PLT unknown unkn own 3/UL All T unknown 7.6 unknown g/dL PRO_TOTA unknown un known L All T unknown 4.56 10 unknown RBC unknown unk nown 6/UL All T unknown 12.8 unknown % RDW unknown unkn own All T unknown 0.8 unknown mg/dL TOTAL_BI unknown un known LI All BILIRUBIN_UR unknown NEGATIVE unknown UBIL unkno wn unknown INE All CLARITY_URIN unknown HAZY unknown UCLAR unknown unknown E All COLOR_URINE unknown YELLOW unknown UCOL unknown unknown All GLUCOSE_URIN unknown NEGATIVE unknown UGLUC unkno wn unknown E_UA_ mg/dL All KETONES_URIN unknown NEGATIVE unknown UKET unkno wn unknown E_UA_ All LEUKOCYTE_ES unknown NEGATIVE unknown ULEUK unkno wn unknown TERASE_URINE All NITRITE_URIN unknown NEGATIVE unknown UNITRITE unk nown unknown E All PH_URINE unknown 6.5 unknown UPH unknown un known All T unknown NEGATIVE unknown UR_BILI unknown u nknown All T unknown HAZY unknown UR_CLARI unknown un known TY All T unknown YELLOW unknown UR_COLOR unknown un known All T unknown NEGATIVE unknown UR_GLU unknown un known mg/dL All T unknown NEGATIVE unknown UR_KETO_ unknown unknown UA_ All T unknown NEGATIVE unknown UR_LEU_E unknown unknown STERASE All T unknown NEGATIVE unknown UR_NIT unknown un known All T unknown 6.5 unknown UR_PH unknown unkn own All T unknown 1.025 unknown UR_SG unknown unkn own All T unknown 0.2 unknown UR_URO unknown unkn own (NORMAL) All T unknown 0-3 /HPF unknown UR_WBC unknown un known All SPECIFIC_GRA unknown 1.025 unknown USG unknown unknown VITY_URINE All UROBILINOGEN unknown 0.2 unknown UUROBIL unknow n unknown _URINE (NORMAL) All WBC_URINE unknown 0-3 /HPF unknown UWBC unknown unknown All T unknown 8.4 X10 unknown WBC unknown unk nown 3/UL All DIPSTICK_URI unknown 6019 unknown _101400 unknow n unknown NE_STRIP_LOT_ NUMBER All WBC_urine_on unknown 0-3 /HPF unknown _1016 unkno wn unknown _microscopy All red_blood_ce unknown 12.8 unknown % _1030 unknown unknown ll_distributi on_width All mean_corpusc unknown 29.2 unknown pg _1031 unknown unknown ular_hemoglob in_RBC All calcium_seru unknown 9.8 unknown mg/dL _11 unknown unknown m All protein_urin unknown trace unknown _118 unknown unknown e_semiquantit ative_dipstic k_ All glucose_urin unknown negative unknown _123 unkno wn unknown e_semiquantit ative All chloride_ser unknown 103 unknown mmol/ _13 unknown unknown um L All Erythrocytes unknown non-hemol unknown _13945-1 un known unknown _area_in_Urin yzed e_sediment_by moderate _Microscopy_h igh_power_fie ld All albumin_glob unknown 1.3 unknown _146 unknown unknown ulin_ratio_se rum All sodium_serum unknown 138 unknown mmol/ _159 unknown unknown L All RBC_urine_di unknown non-hemol unknown _1700005 un known unknown pstick yzed moderate All mean_corpusc unknown 31.7 unknown g/dL _17029 unknown unknown ular_hemoglob in_concentrat ion_rbc All Alanine_amin unknown 17 unknown U/L _1742-6 unknow n unknown otransferase_ Enzymatic_act ivity_volume_ in_Serum_or_P lasma All Albumin_Mass unknown 4.3 unknown g/dL _1751-7 unknow n unknown _volume_in_Se rum_or_Plasma All Albumin_Pres unknown trace unknown _1753-3 unknow n unknown ence_in_Urine All Albumin_Glob unknown 1.3 unknown _1759-0 unknow n unknown ulin_Mass_Rat io_in_Serum_o r_Plasma All Alkaline_pho unknown 64 unknown U/L _1783-0 unknow n unknown sphatase_Enzy matic_activit y_volume_in_B lood All creatinine_s unknown 0.6 unknown mg/dL _18 unknown unknown arlyn All Anion_gap_4_ unknown 10.0 unknown _1863-0 unknow n unknown in_Serum_or_P lasma All Aspartate_am unknown 19 unknown U/L _1920-8 unknow n unknown inotransferas e_Enzymatic_a ctivity_volum e_in_Serum_or _Plasma All Bilirubin.to unknown 0.8 unknown mg/dL _1974-2 unknow n unknown tal_Mass_volu me_in_Serum_o r_Plasma All albumin_seru unknown 4.3 unknown g/dL _2 unknown unknown m All Calcium_Mole unknown 9.8 unknown mg/dL _1999-8 unknow n unknown s_volume_in_S erum_or_Plasm a All carbon_dioxi unknown 25 unknown mmol/ _2028-9 unknow n unknown de_serum_tota L l All Chloride_Mol unknown 103 unknown mmol/ _2075-0 unknow n unknown es_volume_in_ L Serum_or_Plas ma All Creatinine_M unknown 0.6 unknown mg/dL _2160-0 unknow n unknown ass_volume_in _Serum_or_Pla sma All Globulin_Mas unknown 3.3 unknown _2336-6 unknow n unknown s_volume_in_S arlyn All Glucose_Mass unknown 83 unknown mg/dL _2345-7 unknow n unknown _volume_in_Se rum_or_Plasma All Glucose_Mass unknown NEGATIVE unknown _2350-7 unkn own unknown _volume_in_Ur mg/dL ine All neutrophil_c unknown 5.1 10 unknown _2418 unknown unknown ount_blood 3/UL All lymphocyte_c unknown 2.4 10 unknown _2420 unknown unknown ount_blood 3/UL All monocyte_cou unknown 0.7 10 unknown _2422 unknown unknown nt_blood 3/UL All basophil_cou unknown 0.1 10 unknown _2427 unknown unknown nt_blood 3/UL All urine_color unknown YELLOW unknown _2751 unknown unknown All mean_platele unknown 9.7 unknown fL _2784 unknown unknown t_volume All anion_gap_se unknown 10.0 unknown _279 unknown unknown rum All eosinophil_c unknown 0.3 10 unknown _285 unknown unknown ount_blood 3/UL All Protein_Mass unknown 7.6 unknown g/dL _2885-2 unknow n unknown _volume_in_Se rum_or_Plasma All Sodium_Moles unknown 138 unknown mmol/ _2951-2 unknow n unknown _volume_in_Se L rum_or_Plasma All alkaline_pho unknown 64 unknown U/L _3 unknown unknown sphatase_seru m All globulin_ser unknown 3.3 unknown _3059 unknown unknown um All Urea_nitroge unknown 11 unknown mg/dL _3094-0 unknow n unknown n_Mass_volume _in_Serum_or_ Plasma All mean_corpusc unknown 91.9 unknown fL _315 unknown unknown ular_volume_R BC All bilirubin_ur unknown NEGATIVE unknown _319 unkno wn unknown ine All ketones_urin unknown NEGATIVE unknown _322 unkno wn unknown e_by_test_str ip All nitrite_urin unknown NEGATIVE unknown _323 unkno wn unknown e_semiquantit ative All pH_urine_sem unknown 6.5 unknown _324 unknown unknown iquantitative All specific_gra unknown 1.025 unknown _325 unknown unknown vity_urine All urobilinogen unknown 0.2 unknown _326 unknown unknown _urine_semiqu (NORMAL) antitative_di pstick_ All leukocyte_es unknown NEGATIVE unknown _327 unkno wn unknown terase_urine_ by_dipstick All appearance_u unknown cloudy unknown _328 unknown unknown rine All glucose_urin unknown NEGATIVE unknown _3369 unkno wn unknown e mg/dL All potassium_bl unknown 3.9 unknown meq/L _3483 unknown unknown ood All blood_glucos unknown 83 unknown mg/dL _3565 unknown unknown e All protein_tota unknown 7.6 unknown g/dL _36 unknown unknown l_serum All aspartate_am unknown 19 unknown U/L _39 unknown unknown inotransferas e_SGOT_serum All carbon_dioxi unknown 25 unknown mmol/ _3962 unknown unknown de_serum_tota L l All alanine_amin unknown 17 unknown U/L _40 unknown unknown otransferase_ SGPT_serum All bilirubin_se unknown 0.8 unknown mg/dL _43 unknown unknown rum_total All Erythrocyte_ unknown 2 unknown mm/h _4537-7 unknow n unknown sedimentation _rate_by_[place]_method All Hematocrit_V unknown 41.9 unknown % _4544-3 unknow n unknown olume_Fractio n_of_Blood_by _Automated_co unt All urinalysis_r unknown Clean unknown _47 unknown unknown outine Catch All Glomerular_fi unknown 127 unknown mL/mi _48642-3 unkno wn unknown ltration_rate n _1.73_sq_M.pr edicted_among _non-blacks_V olume_Rate_Ar ea_in_Serum_P lasma_or_Bloo d_by_Creatini ne-based_form ula_MDRD_ All pH_study_of_ unknown 6.5 unknown _51641 unknown unknown acidity All clarity_urin unknown HAZY unknown _5589 unknown unknown e_point All Appearance_o unknown cloudy unknown _5767-9 unknow n unknown f_Urine All Bilirubin.to unknown NEGATIVE unknown _5770-3 unkn own unknown tal_Presence_ in_Urine_by_T est_strip All Color_of_Uri unknown YELLOW unknown _5778-6 unknow n unknown ne All Glucose_Mass unknown negative unknown _5792-7 unkn own unknown _volume_in_Ur ine_by_Test_s trip All Ketones_Mass unknown NEGATIVE unknown _5797-6 unkn own unknown _volume_in_Ur ine_by_Test_s trip All Leukocyte_es unknown NEGATIVE unknown _5799-2 unkn own unknown terase_Presen ce_in_Urine_b y_Test_strip All Nitrite_Pres unknown NEGATIVE unknown _5802-4 unkn own unknown ence_in_Urine _by_Test_stri p All pH_of_Urine_ unknown 6.5 unknown _5803-2 unknow n unknown by_Test_strip All Specific_gra unknown 1.025 unknown _5811-5 unknow n unknown vity_of_Urine _by_Test_stri p All Urobilinogen unknown 0.2 unknown _5818-0 unknow n unknown _Presence_in_ (NORMAL) Urine_by_Test _strip All WBC_urine_on unknown 0-3 /HPF unknown _5821-4 unkn own unknown _microscopy All potassium_bl unknown 3.9 unknown meq/L _6298-4 unknow n unknown ood All erythrocyte_ unknown 2 unknown mm/h _63 unknown unknown sedimentation _rate All hematocrit_b unknown 41.9 unknown % _64 unknown unknown lood All hemoglobin_b unknown 13.3 unknown g/dL _65 unknown unknown lood All platelet_cou unknown 284 10 unknown _66 unknown unknown nt 3/UL All Glomerular_F unknown 127 unknown mL/mi _66455 unknown unknown iltration_rat n e All Leukocytes_v unknown 8.4 X10 unknown _6690-2 unkno wn unknown olume_in_Bloo 3/UL d_by_Automate d_count All erythrocyte_ unknown 4.56 10 unknown _67 unknow n unknown RBC_count 6/UL All leukocyte_co unknown 8.4 X10 unknown _68 unknow n unknown unt_blood 3/UL All Basophils_vo unknown 0.1 10 unknown _705-4 unknown unknown lume_in_Blood 3/UL _by_Manual_co unt All eosinophil_c unknown 0.3 10 unknown _712-0 unknown unknown ount_blood 3/UL All Hemoglobin_M unknown 13.3 unknown g/dL _718-7 unknown unknown ass_volume_in _Blood All lymphocyte_c unknown 2.4 10 unknown _732-8 unknown unknown ount_blood 3/UL All monocyte_cou unknown 0.7 10 unknown _743-5 unknown unknown nt_blood 3/UL All neutrophil_c unknown 5.1 10 unknown _752-6 unknown unknown ount_blood 3/UL All Platelet_mea unknown 9.7 unknown fL _776-5 unknown unknown n_volume_Enti tic_volume_in _Blood_by_[facility] [facility] All Platelets_vo unknown 284 10 unknown _777-3 unknown unknown lume_in_Blood 3/UL _by_Automated _count All MCH_Entitic_ unknown 29.2 unknown pg _785-6 unknown unknown mass_by_Autom ated_count All MCV_Entitic_ unknown 91.9 unknown fL _787-2 unknown unknown volume_by_Aut omated_count All Erythrocyte_ unknown 12.8 unknown % _788-0 unknown unknown distribution_ width_Ratio_b y_Automated_c ount All Erythrocytes unknown 4.56 10 unknown _789-8 unknow n unknown _volume_in_Bl 6/UL ood_by_Automa ted_count All urea_nitroge unknown 11 unknown mg/dL _9 unknown unknown n_blood Vital Signs date measurement value source 20210107 BMI 28.77 kg/m2 20210107 BP_diastolic 76 mm[Hg] [id number] BP_systolic 116 mm[Hg] 20210107 heart_rate 67 /min 20210107 height_metric 160.02 cm 20210107 height_standard 63 in 20210107 respiration_rate 16 /min 20210107 temperature_metric 36.4 C 20210107 temperature_metric 36.44 C 20210107 temperature_standard 97.52 F 20210107 temperature_standard 97.6 F 20210107 weight_metric 73.39 kg [id number] weight_standard 161.8 lb 20210107 BMI 28.77 kg/m2 20210107 BP_diastolic 76 mm[Hg] [id number] BP_systolic 116 mm[Hg] [id number] heart_rate 67 /min 20210107 height_metric 160.02 cm [id number] height_standard 63 in 20210107 respiration_rate 16 /min 20210107 temperature_metric 36.4 C 20210107 temperature_metric 36.44 C 20210107 temperature_standard 97.52 F 20210107 temperature_standard 97.6 F 20210107 weight_metric 73.39 kg 20210107 weight_standard 161.8 lb Social History date description facility [id number]
--- OUTSIDE RECORDS SUMMARY | 2021-03-04 23:35 | EXTERNAL MEDICAL SUMMARY RPT | Continuity of Care Document ---
:2000 Dem[employer] Phone Unavailable Preferred Language Unknown Marital Status Unknown Pentecostalism Affiliation Unknown Race Unknown Ethnic Group Unknown Author Organization [place] Address [address] [id number] Phone Care Team Providers Name Role Phone RN Unavailable Unavailable PA-C Unavailable Unavailable Problems date description facility [id number] Sed Rate All [id number] Urticaria, unspecified All [id number] CBC W/Diff/Plt All 07559642 COMPREHENSIVE METABOLIC PANEL All [id number] Unspecified urticaria All 79003825 Urinalysis with Microscopic Exam, Cultu re in Indicated All 99535114 Urticaria All Medications date description facility 68364501 [facility] All 93647614 [facility] All 47446163 [facility] All 24967227 [facility] All Procedures date description facility 92366671 IM or SQ Injection All date description facility 77941966 Dexamethasone Sodium Phosphate Inj 10mg /1mL All date description facility 68321514 Ketorolac Tromethamine 30 mg/ml Soln A ll date description facility 99019971 [facility] All date description facility 56929457 Diphenhydramine capsules 25 mg All date description facility 87243624 IM or SQ Injection All date description facility 18345025 Dexamethasone Sodium Phosphate Inj 10mg /1mL All date description facility 50256171 Ketorolac Tromethamine 30 mg/ml Soln A ll date description facility 58455379 [facility] All date description facility 64575891 Diphenhydramine capsules 25 mg All Results test status date ordered by attending specimen lynnette e ALBUMIN_GLOBULIN_RATIO unknown [id number] unknown unknown unknown T unknown 01310705 unknown unknown unknown T unknown [id number] unknown unknown unknown ALKALINE_PHOSPHATASE unknown 81237348 unknown unknown un known ALT_ALANINE_AMINOTRANS unknown [id number] unknown unknown unknown FERASE T unknown [id number] unknown unknown unknown T unknown 71392860 unknown unknown unknown T unknown 54569190 unknown unknown unknown T unknown [id number] unknown unknown unknown BASOPHILS_AUTO_ unknown [id number] unknown unknown unknown BILIRUBIN_TOTAL unknown 94868336 unknown unknown unknown T unknown 75530653 unknown unknown unknown T unknown 68098830 unknown unknown unknown T unknown 77620625 unknown unknown unknown T unknown 31251367 unknown unknown unknown T unknown [id number] unknown unknown unknown T unknown 08312577 unknown unknown unknown EOSINOPHILS_AUTO_ unknown 56210490 unknown unknown unkno wn T unknown 58970332 unknown unknown unknown T unknown 85915419 unknown unknown unknown GFR_-_MDRD unknown 37258131 unknown unknown unknown T unknown 01706752 unknown unknown unknown T unknown 10969793 unknown unknown unknown T unknown 56413058 unknown unknown unknown T unknown 27320157 unknown unknown unknown T unknown 32189951 unknown unknown unknown T unknown 42254783 unknown unknown unknown T unknown [id number] unknown unknown unknown LYMPHOCYTES_AUTO_ unknown 15109102 unknown unknown unkno wn T unknown 32744477 unknown unknown unknown T unknown 96380312 unknown unknown unknown T unknown 60778840 unknown unknown unknown T unknown 45713621 unknown unknown unknown MONOCYTES_AUTO_ unknown [id number] unknown unknown unknown T unknown 43258749 unknown unknown unknown T unknown 73947875 unknown unknown unknown T unknown 28722900 unknown unknown unknown NEUTROPHILS_AUTO_ unknown 87284685 unknown unknown unkno wn T unknown [id number] unknown unknown unknown T unknown 44006115 unknown unknown unknown T unknown 26368405 unknown unknown unknown T unknown 67360434 unknown unknown unknown T unknown 32990039 unknown unknown unknown BILIRUBIN_URINE unknown 55153368 unknown unknown unknown CLARITY_URINE unknown 37504101 unknown unknown unknown COLOR_URINE unknown 37891070 unknown unknown unknown GLUCOSE_URINE_UA_ unknown 32572213 unknown unknown unkno wn KETONES_URINE_UA_ unknown [id number] unknown unknown unkno wn LEUKOCYTE_ESTERASE_URI unknown 32598601 unknown unknown unknown NE NITRITE_URINE unknown [id number] unknown unknown unknown PH_URINE unknown 26289727 unknown unknown unknown T unknown 48568862 unknown unknown unknown T unknown 92375326 unknown unknown unknown T unknown 45077090 unknown unknown unknown T unknown 01418576 unknown unknown unknown T unknown 43886409 unknown unknown unknown T unknown 97252812 unknown unknown unknown T unknown 56664313 unknown unknown unknown T unknown 09698409 unknown unknown unknown T unknown 80381774 unknown unknown unknown T unknown 37992493 unknown unknown unknown T unknown 86624659 unknown unknown unknown SPECIFIC_GRAVITY_URINE unknown 09801139 unknown unknown unknown UROBILINOGEN_URINE unknown 15940936 unknown unknown unkn own WBC_URINE unknown [id number] unknown unknown unknown T unknown [id number] unknown unknown unknown DIPSTICK_URINE_STRIP_L unknown 18520281 unknown unknown unknown OT_NUMBER WBC_urine_on_microscop unknown 98983604 unknown unknown unknown y red_blood_cell_distrib unknown 90284549 unknown unknown unknown ution_width mean_corpuscular_hemog unknown 58621217 unknown unknown unknown lobin_RBC calcium_serum unknown 03782276 unknown unknown unknown protein_urine_semiquan unknown 81540530 unknown unknown unknown titative_dipstick_ glucose_urine_semiquan unknown 00215793 unknown unknown unknown titative chloride_serum unknown 47769657 unknown unknown unknown Erythrocytes_area_in_U unknown 09107187 unknown unknown unknown rine_sediment_by_Micros copy_high_power_field albumin_globulin_ratio unknown 41128587 unknown unknown unknown _serum sodium_serum unknown 09807546 unknown unknown unknown RBC_urine_dipstick unknown 57150065 unknown unknown unkn own mean_corpuscular_hemog unknown 90652402 unknown unknown unknown lobin_concentration_rbc Alanine_aminotransfera unknown 57776238 unknown unknown unknown se_Enzymatic_activity_v olume_in_Serum_or_Plasm a Albumin_Mass_volume_in unknown 63219748 unknown unknown unknown _Serum_or_Plasma Albumin_Presence_in_Ur unknown 54840085 unknown unknown unknown ine Albumin_Globulin_Mass_ unknown 81124399 unknown unknown unknown Ratio_in_Serum_or_Plasm a Alkaline_phosphatase_E unknown 14101092 unknown unknown unknown nzymatic_activity_volum e_in_Blood creatinine_serum unknown 67437449 unknown unknown unknow n Anion_gap_4_in_Serum_o unknown 46003102 unknown unknown unknown r_Plasma Aspartate_aminotransfe unknown 36851558 unknown unknown unknown rase_Enzymatic_activity _volume_in_Serum_or_Pla sma Bilirubin.total_Mass_v unknown 73296508 unknown unknown unknown olume_in_Serum_or_Plasm a albumin_serum unknown 77612335 unknown unknown unknown Calcium_Moles_volume_i unknown 36543195 unknown unknown unknown n_Serum_or_Plasma carbon_dioxide_serum_t unknown 24476328 unknown unknown unknown otal Chloride_Moles_volume_ unknown 69135510 unknown unknown unknown in_Serum_or_Plasma Creatinine_Mass_volume unknown 72127498 unknown unknown unknown _in_Serum_or_Plasma Globulin_Mass_volume_i unknown 60861766 unknown unknown unknown n_Serum Glucose_Mass_volume_in unknown 56295281 unknown unknown unknown _Serum_or_Plasma Glucose_Mass_volume_in unknown 23295644 unknown unknown unknown _Urine neutrophil_count_blood unknown 16836586 unknown unknown unknown lymphocyte_count_blood unknown 68315673 unknown unknown unknown monocyte_count_blood unknown 55164458 unknown unknown un known basophil_count_blood unknown 92485575 unknown unknown un known urine_color unknown 51831386 unknown unknown unknown urine_color unknown 21012826 unknown unknown unknown mean_platelet_volume unknown 36066525 unknown unknown un known anion_gap_serum unknown 76646586 unknown unknown unknown eosinophil_count_blood unknown 62666035 unknown unknown unknown Protein_Mass_volume_in unknown 56432436 unknown unknown unknown _Serum_or_Plasma Sodium_Moles_volume_in unknown 53669789 unknown unknown unknown _Serum_or_Plasma alkaline_phosphatase_s unknown 03322927 unknown unknown unknown arlyn globulin_serum unknown 47418818 unknown unknown unknown Urea_nitrogen_Mass_vol unknown 03985107 unknown unknown unknown ume_in_Serum_or_Plasma mean_corpuscular_volum unknown 34034916 unknown unknown unknown e_RBC bilirubin_urine unknown 18444756 unknown unknown unknown bilirubin_urine unknown 98735520 unknown unknown unknown ketones_urine_by_test_ unknown 62349174 unknown unknown unknown strip ketones_urine_by_test_ unknown 28313902 unknown unknown unknown strip nitrite_urine_semiquan unknown 70421477 unknown unknown unknown titative nitrite_urine_semiquan unknown 50722501 unknown unknown unknown titative pH_urine_semiquantitat unknown 02598766 unknown unknown unknown huang specific_gravity_urine unknown 33092861 unknown unknown unknown specific_gravity_urine unknown 08609922 unknown unknown unknown urobilinogen_urine_sem unknown 59344254 unknown unknown unknown iquantitative_dipstick_ urobilinogen_urine_sem unknown 94772642 unknown unknown unknown iquantitative_dipstick_ leukocyte_esterase_uri unknown 78903900 unknown unknown unknown ne_by_dipstick leukocyte_esterase_uri unknown 22485757 unknown unknown unknown ne_by_dipstick appearance_urine unknown 61104055 unknown unknown unknow n glucose_urine unknown 90012777 unknown unknown unknown potassium_blood unknown 02751525 unknown unknown unknown blood_glucose unknown 33631190 unknown unknown unknown protein_total_serum unknown 88223593 unknown unknown unk nown aspartate_aminotransfe unknown 06712947 unknown unknown unknown rase_SGOT_serum carbon_dioxide_serum_t unknown 99619236 unknown unknown unknown otal alanine_aminotransfera unknown 10830383 unknown unknown unknown se_SGPT_serum bilirubin_serum_total unknown 60987722 unknown unknown u nknown Erythrocyte_sedimentat unknown 88646878 unknown unknown unknown ion_rate_by_Westergren_ method Hematocrit_Volume_Frac unknown 52297743 unknown unknown unknown tion_of_Blood_by_Automa ted_count urinalysis_routine unknown 63359282 unknown unknown unkn own Glomerular_filtration_ unknown 11159088 unknown unknown unknown rate_1.73_sq_M.predicte d_among_non-blacks_Volu me_Rate_Area_in_Serum_P lasma_or_Blood_by_Creat inine-based_formula_MDR D_ pH_study_of_acidity unknown 69179728 unknown unknown unk nown clarity_urine_point unknown 84250973 unknown unknown unk nown Appearance_of_Urine unknown 46161277 unknown unknown unk nown Bilirubin.total_Presen unknown 41317722 unknown unknown unknown ce_in_Urine_by_Test_str ip Bilirubin.total_Presen unknown 33141560 unknown unknown unknown ce_in_Urine_by_Test_str ip Color_of_Urine unknown 97352439 unknown unknown unknown Color_of_Urine unknown 18241927 unknown unknown unknown Glucose_Mass_volume_in unknown 81199353 unknown unknown unknown _Urine_by_Test_strip Ketones_Mass_volume_in unknown 77017655 unknown unknown unknown _Urine_by_Test_strip Ketones_Mass_volume_in unknown 01828960 unknown unknown unknown _Urine_by_Test_strip Leukocyte_esterase_Pre unknown 47888215 unknown unknown unknown sence_in_Urine_by_Test_ strip Leukocyte_esterase_Pre unknown 44800668 unknown unknown unknown sence_in_Urine_by_Test_ strip Nitrite_Presence_in_Ur unknown 04863360 unknown unknown unknown ine_by_Test_strip Nitrite_Presence_in_Ur unknown 48485720 unknown unknown unknown ine_by_Test_strip pH_of_Urine_by_Test_st unknown 02167841 unknown unknown unknown rip Specific_gravity_of_Ur unknown 70128317 unknown unknown unknown ine_by_Test_strip Specific_gravity_of_Ur unknown 85755650 unknown unknown unknown ine_by_Test_strip Urobilinogen_Presence_ unknown 75653575 unknown unknown unknown in_Urine_by_Test_strip Urobilinogen_Presence_ unknown 49323252 unknown unknown unknown in_Urine_by_Test_strip WBC_urine_on_microscop unknown 56338142 unknown unknown unknown y potassium_blood unknown 47665443 unknown unknown unknown erythrocyte_sedimentat unknown 26642217 unknown unknown unknown ion_rate hematocrit_blood unknown 32740496 unknown unknown unknow n hemoglobin_blood unknown 47206708 unknown unknown unknow n platelet_count unknown 82913598 unknown unknown unknown Glomerular_Filtration_ unknown 69134594 unknown unknown unknown rate Leukocytes_volume_in_B unknown 28609024 unknown unknown unknown lood_by_Automated_count erythrocyte_RBC_count unknown 54570355 unknown unknown u nknown leukocyte_count_blood unknown 26713014 unknown unknown u nknown Basophils_volume_in_Bl unknown 05990807 unknown unknown unknown ood_by_Manual_count eosinophil_count_blood unknown 74595859 unknown unknown unknown Hemoglobin_Mass_volume unknown 14929802 unknown unknown unknown _in_Blood lymphocyte_count_blood unknown 75481524 unknown unknown unknown monocyte_count_blood unknown 50325647 unknown unknown un known neutrophil_count_blood unknown 71473912 unknown unknown unknown Platelet_mean_volume_E unknown 22886264 unknown unknown unknown ntitic_volume_in_Blood_ by_Rees-Mimi Platelets_volume_in_Bl unknown 48235506 unknown unknown unknown ood_by_Automated_count MCH_Entitic_mass_by_Au unknown 08767265 unknown unknown unknown tomated_count MCV_Entitic_volume_by_ unknown 20854568 unknown unknown unknown Automated_count Erythrocyte_distributi unknown 83428818 unknown unknown unknown on_width_Ratio_by_Autom ated_count Erythrocytes_volume_in unknown 52984277 unknown unknown unknown _Blood_by_Automated_cou nt urea_nitrogen_blood unknown 92488410 unknown unknown unk nown ALBUMIN_GLOBULIN_RATIO unknown 38155558 unknown unknown unknown T unknown 74863218 unknown unknown unknown T unknown 33365388 unknown unknown unknown ALKALINE_PHOSPHATASE unknown 72006216 unknown unknown un known ALT_ALANINE_AMINOTRANS unknown 81267423 unknown unknown unknown FERASE T unknown 91316045 unknown unknown unknown T unknown 65810415 unknown unknown unknown T unknown 05842587 unknown unknown unknown T unknown 59028153 unknown unknown unknown BASOPHILS_AUTO_ unknown 59507168 unknown unknown unknown BILIRUBIN_TOTAL unknown 52503806 unknown unknown unknown T unknown 67577215 unknown unknown unknown T unknown 94655470 unknown unknown unknown T unknown 20109619 unknown unknown unknown T unknown 48788314 unknown unknown unknown T unknown 17893339 unknown unknown unknown T unknown 32898437 unknown unknown unknown EOSINOPHILS_AUTO_ unknown 38592217 unknown unknown unkno wn T unknown 92315240 unknown unknown unknown T unknown 14081155 unknown unknown unknown GFR_-_MDRD unknown 37414574 unknown unknown unknown T unknown 11178999 unknown unknown unknown T unknown 94047426 unknown unknown unknown T unknown 54424488 unknown unknown unknown T unknown 48226805 unknown unknown unknown T unknown 78869944 unknown unknown unknown T unknown 87774135 unknown unknown unknown T unknown 04157886 unknown unknown unknown LYMPHOCYTES_AUTO_ unknown 32043872 unknown unknown unkno wn T unknown 50596795 unknown unknown unknown T unknown 87293565 unknown unknown unknown T unknown 50193755 unknown unknown unknown T unknown 43900717 unknown unknown unknown MONOCYTES_AUTO_ unknown 66022218 unknown unknown unknown T unknown 70185787 unknown unknown unknown T unknown 97468588 unknown unknown unknown T unknown 02893800 unknown unknown unknown NEUTROPHILS_AUTO_ unknown 57857149 unknown unknown unkno wn T unknown 63288648 unknown unknown unknown T unknown 11930138 unknown unknown unknown T unknown 20516000 unknown unknown unknown T unknown 47188150 unknown unknown unknown T unknown 77851278 unknown unknown unknown BILIRUBIN_URINE unknown 41808735 unknown unknown unknown CLARITY_URINE unknown 82558525 unknown unknown unknown COLOR_URINE unknown 53639500 unknown unknown unknown GLUCOSE_URINE_UA_ unknown 13637488 unknown unknown unkno wn KETONES_URINE_UA_ unknown 88750424 unknown unknown unkno wn LEUKOCYTE_ESTERASE_URI unknown 06126613 unknown unknown unknown NE NITRITE_URINE unknown 61116952 unknown unknown unknown PH_URINE unknown 01486056 unknown unknown unknown T unknown 54382105 unknown unknown unknown T unknown 60975596 unknown unknown unknown T unknown 44812107 unknown unknown unknown T unknown 70717216 unknown unknown unknown T unknown 45315034 unknown unknown unknown T unknown 07783940 unknown unknown unknown T unknown 70082681 unknown unknown unknown T unknown 26809665 unknown unknown unknown T unknown 71615456 unknown unknown unknown T unknown 88316240 unknown unknown unknown T unknown 44044147 unknown unknown unknown SPECIFIC_GRAVITY_URINE unknown 11087384 unknown unknown unknown UROBILINOGEN_URINE unknown 91771040 unknown unknown unkn own WBC_URINE unknown 84468519 unknown unknown unknown T unknown 13619510 unknown unknown unknown DIPSTICK_URINE_STRIP_L unknown 04859020 unknown unknown unknown OT_NUMBER WBC_urine_on_microscop unknown 38481059 unknown unknown unknown y red_blood_cell_distrib unknown 17291930 unknown unknown unknown ution_width mean_corpuscular_hemog unknown 73123715 unknown unknown unknown lobin_RBC calcium_serum unknown 97314895 unknown unknown unknown protein_urine_semiquan unknown 01089936 unknown unknown unknown titative_dipstick_ glucose_urine_semiquan unknown 12490019 unknown unknown unknown titative chloride_serum unknown 35006388 unknown unknown unknown Erythrocytes_area_in_U unknown 97885814 unknown unknown unknown rine_sediment_by_Micros copy_high_power_field albumin_globulin_ratio unknown 10910039 unknown unknown unknown _serum sodium_serum unknown 71950656 unknown unknown unknown RBC_urine_dipstick unknown 07543029 unknown unknown unkn own mean_corpuscular_hemog unknown 28976827 unknown unknown unknown lobin_concentration_rbc Alanine_aminotransfera unknown 05449475 unknown unknown unknown se_Enzymatic_activity_v olume_in_Serum_or_Plasm a Albumin_Mass_volume_in unknown 72143322 unknown unknown unknown _Serum_or_Plasma Albumin_Presence_in_Ur unknown 18180711 unknown unknown unknown ine Albumin_Globulin_Mass_ unknown 19384864 unknown unknown unknown Ratio_in_Serum_or_Plasm a Alkaline_phosphatase_E unknown 57862711 unknown unknown unknown nzymatic_activity_volum e_in_Blood creatinine_serum unknown 93322540 unknown unknown unknow n Anion_gap_4_in_Serum_o unknown 21039292 unknown unknown unknown r_Plasma Aspartate_aminotransfe unknown 82357106 unknown unknown unknown rase_Enzymatic_activity _volume_in_Serum_or_Pla sma Bilirubin.total_Mass_v unknown 62558372 unknown unknown unknown olume_in_Serum_or_Plasm a albumin_serum unknown 28300499 unknown unknown unknown Calcium_Moles_volume_i unknown 69547856 unknown unknown unknown n_Serum_or_Plasma carbon_dioxide_serum_t unknown 52309358 unknown unknown unknown otal Chloride_Moles_volume_ unknown 99952654 unknown unknown unknown in_Serum_or_Plasma Creatinine_Mass_volume unknown 11586309 unknown unknown unknown _in_Serum_or_Plasma Globulin_Mass_volume_i unknown 73328242 unknown unknown unknown n_Serum Glucose_Mass_volume_in unknown 97368875 unknown unknown unknown _Serum_or_Plasma Glucose_Mass_volume_in unknown 08233216 unknown unknown unknown _Urine neutrophil_count_blood unknown 23174851 unknown unknown unknown lymphocyte_count_blood unknown 87835069 unknown unknown unknown monocyte_count_blood unknown 72929781 unknown unknown un known basophil_count_blood unknown 36264098 unknown unknown un known urine_color unknown 40548822 unknown unknown unknown mean_platelet_volume unknown 57053321 unknown unknown un known anion_gap_serum unknown 08332292 unknown unknown unknown eosinophil_count_blood unknown 78351414 unknown unknown unknown Protein_Mass_volume_in unknown 60876100 unknown unknown unknown _Serum_or_Plasma Sodium_Moles_volume_in unknown 35227400 unknown unknown unknown _Serum_or_Plasma alkaline_phosphatase_s unknown 30878712 unknown unknown unknown arlyn globulin_serum unknown 30763447 unknown unknown unknown Urea_nitrogen_Mass_vol unknown 24262379 unknown unknown unknown ume_in_Serum_or_Plasma mean_corpuscular_volum unknown 71445725 unknown unknown unknown e_RBC bilirubin_urine unknown 67053971 unknown unknown unknown ketones_urine_by_test_ unknown 07828030 unknown unknown unknown strip nitrite_urine_semiquan unknown 12179884 unknown unknown unknown titative pH_urine_semiquantitat unknown 29614808 unknown unknown unknown huang specific_gravity_urine unknown 40614325 unknown unknown unknown urobilinogen_urine_sem unknown 49732585 unknown unknown unknown iquantitative_dipstick_ leukocyte_esterase_uri unknown 07845532 unknown unknown unknown ne_by_dipstick appearance_urine unknown 74984566 unknown unknown unknow n glucose_urine unknown 82641853 unknown unknown unknown potassium_blood unknown 20346627 unknown unknown unknown blood_glucose unknown 55328001 unknown unknown unknown protein_total_serum unknown 13977598 unknown unknown unk nown aspartate_aminotransfe unknown 39979291 unknown unknown unknown rase_SGOT_serum carbon_dioxide_serum_t unknown 12641965 unknown unknown unknown otal alanine_aminotransfera unknown 30563365 unknown unknown unknown se_SGPT_serum bilirubin_serum_total unknown 25446183 unknown unknown u nknown Erythrocyte_sedimentat unknown 10861514 unknown unknown unknown ion_rate_by_Westergren_ method Hematocrit_Volume_Frac unknown 02864291 unknown unknown unknown tion_of_Blood_by_Automa ted_count urinalysis_routine unknown 58117692 unknown unknown unkn own Glomerular_filtration_ unknown 25819062 unknown unknown unknown rate_1.73_sq_M.predicte d_among_non-blacks_Volu me_Rate_Area_in_Serum_P lasma_or_Blood_by_Creat inine-based_formula_MDR D_ pH_study_of_acidity unknown 05633985 unknown unknown unk nown clarity_urine_point unknown 44650504 unknown unknown unk nown Appearance_of_Urine unknown 12682277 unknown unknown unk nown Bilirubin.total_Presen unknown 01515930 unknown unknown unknown ce_in_Urine_by_Test_str ip Color_of_Urine unknown 44505319 unknown unknown unknown Glucose_Mass_volume_in unknown 91066842 unknown unknown unknown _Urine_by_Test_strip Ketones_Mass_volume_in unknown 73476080 unknown unknown unknown _Urine_by_Test_strip Leukocyte_esterase_Pre unknown 46380573 unknown unknown unknown sence_in_Urine_by_Test_ strip Nitrite_Presence_in_Ur unknown 23599439 unknown unknown unknown ine_by_Test_strip pH_of_Urine_by_Test_st unknown 15558778 unknown unknown unknown rip Specific_gravity_of_Ur unknown 92518571 unknown unknown unknown ine_by_Test_strip Urobilinogen_Presence_ unknown 22841459 unknown unknown unknown in_Urine_by_Test_strip WBC_urine_on_microscop unknown 06152797 unknown unknown unknown y potassium_blood unknown 95497897 unknown unknown unknown erythrocyte_sedimentat unknown 21052645 unknown unknown unknown ion_rate hematocrit_blood unknown 50608171 unknown unknown unknow n hemoglobin_blood unknown 61269207 unknown unknown unknow n platelet_count unknown 22270261 unknown unknown unknown Glomerular_Filtration_ unknown 76990591 unknown unknown unknown rate Leukocytes_volume_in_B unknown 84702613 unknown unknown unknown lood_by_Automated_count erythrocyte_RBC_count unknown 78486694 unknown unknown u nknown leukocyte_count_blood unknown 09276369 unknown unknown u nknown Basophils_volume_in_Bl unknown 07614771 unknown unknown unknown ood_by_Manual_count eosinophil_count_blood unknown 57797831 unknown unknown unknown Hemoglobin_Mass_volume unknown 91135209 unknown unknown unknown _in_Blood lymphocyte_count_blood unknown 08252323 unknown unknown unknown monocyte_count_blood unknown 92577568 unknown unknown un known neutrophil_count_blood unknown 78390091 unknown unknown unknown Platelet_mean_volume_E unknown 26927305 unknown unknown unknown ntitic_volume_in_Blood_ by_Rees-Mimi Platelets_volume_in_Bl unknown 60202657 unknown unknown unknown ood_by_Automated_count MCH_Entitic_mass_by_Au unknown 17512600 unknown unknown unknown tomated_count MCV_Entitic_volume_by_ unknown 82690197 unknown unknown unknown Automated_count Erythrocyte_distributi unknown 16836774 unknown unknown unknown on_width_Ratio_by_Autom ated_count Erythrocytes_volume_in unknown 57961674 unknown unknown unknown _Blood_by_Automated_cou nt urea_nitrogen_blood unknown 80711747 unknown unknown on license of [facility] facility observation status value reference units lab [...] BMI 28.77 kg/m2 20210107 BP_diastolic 76 mm[Hg] 38088865 BP_systolic 116 mm[Hg] 20210107 heart_rate 67 /min 20210107 height_metric 160.02 cm [id number] height_standard 63 in 20210107 respiration_rate 16 /min 20210107 temperature_metric 36.4 C 20210107 temperature_metric 36.44 C 20210107 temperature_standard 97.52 F 20210107 temperature_standard 97.6 F 20210107 weight_metric 73.39 kg [id number] weight_standard 161.8 lb 20210107 BMI 28.77 kg/m2 20210107 BP_diastolic 76 mm[Hg] [id number] BP_systolic 116 mm[Hg] [id number] heart_rate 67 /min 20210107 height_metric 160.02 cm [id number] height_standard 63 in 20210107 respiration_rate 16 /min 20210107 temperature_metric 36.4 C 20210107 temperature_metric 36.44 C 20210107 temperature_standard 97.52 F 20210107 temperature_standard 97.6 F 20210107 weight_metric 73.39 kg 20210107 weight_standard 161.8 lb Social History date description facility [id number]
[2021-03-04 23:48] LABS: BILIRUBIN,URINE NEGATIVE (NEGATIVE); GLUCOSE, URINE (UA) NEGATIVE (NEGATIVE); KETONES,URINE (UA) NEGATIVE (NEGATIVE); LEUKOCYTE ESTERASE, URINE MODERATE (NEGATIVE); NITRITE,URINE NEGATIVE (NEGATIVE); OCCULT BLOOD,URINE MODERATE (NEGATIVE); PH,URINE 5.5 PH (5.0-7.5); PROTEIN,URINE NEGATIVE (NEGATIVE); UROBILINOGEN,URINE 0.2 (NORMAL) E.U./dL (NORMAL)
[2021-03-04 23:51] LABS: CLARITY,URINE SL. CLOUDY (CLEAR)
[2021-03-04 23:52] LABS: HCG UR QUAL NEGATIVE
[2021-03-05 00:02] LABS: BACTERIA,URINE Moderate /HPF (None Seen); MUCUS,URINE Moderate Strands; SQUAMOUS EPITHELIAL CELL,UR MOD Squamous (<= Few)
[2021-03-05] MEDS ORDERED: SULFAMETH/TRIMETH DS 800/160 MG TABLET PO STA (00:03)
--- NOTE | 2021-03-05 00:05 | ED Physician Documentation ---
PD HPI FEMALE - Stated complaint Stated Complaint: FEMALE - Chief complaint Chief Complaint: UTI - History obtained from History obtained from: Patient - History of Present Illness Timing - onset: How many days ago (3) Timing - duration: Days (3) Timing - details: Gradual onset, Still present Associated symptoms: Dysuria, Urinary frequency Contributing factors: No: Similar symptoms before: Diagnosis (UTI) Recently seen: Not recently seen - Additional information Additional information: Previously well 20-year-old female has developed signs and symptoms of urinary tract infection. She is having urinary urgency frequency and dysuria and she has had this previously a number of times. She feels that this is been a long interval since her last infection. She has been evaluated by urology previously she has had CT scan and ultrasound. She has not had urethral dilation. She does describe difficulty initiating a urinary stream having to push to get urine out. Not a new symptom. Review of Systems Constitutional: denies: Fever Nose: denies: Congestion Throat: denies: Sore throat Respiratory: denies: Cough GI: reports: Nausea. denies: Vomiting : reports: Dysuria, Frequency Skin: denies: Rash Musculoskeletal: reports: Back pain (chronic). 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 : Chronic bladder infection HEENT: None Psych: None Musculoskeletal: None Derm: None - Past Surgical History Past Surgical History: No - Present Medications Home Medications: Ambulatory Orders Medication Instructions Recorded Confirmed Sertraline [Zoloft] 25 mg PO DAILY 06/12/20 01/07/21 Cetirizine [ZyrTEC] 10 mg PO BID #20 tab 01/07/21 HYDROcod/ACETAM 5/325 [[place] 5/325] 1 ea PO Q6H PRN #15 tab 01/07/21 dexAMETHasone [Decadron] 4 mg PO DAILY #7 tab 01/07/21 Sulfamethox/Trimeth 800/160 1 each PO BID #10 tablet 03/05/21 [Bactrim Ds] - Allergies Allergies/Adverse Reactions: Allergies Allergy/AdvReac Type Severity Reaction Status Date / Time No Known Drug Allergies Allergy Verified 03/04/21 23:36 - Social History Does the pt smoke?: No Smoking Status: Never smoker Does the pt drink ETOH?: No Does the pt have substance abuse?: No - Immunizations Immunizations are current?: Yes - POLST Patient has POLST: No PD ED PE NORMAL - Vitals Vital signs reviewed: Yes (Hypertensive) - General General: Alert and oriented X 3, No acute distress, Well developed/nourished - HEENT HEENT: Atraumatic, PERRL, EOMI - Neck Neck: Supple, no meningeal sign, No bony TTP - Cardiac Cardiac: RRR, No murmur - Respiratory Respiratory: No respiratory distress, Clear bilaterally - Abdomen Abdomen: Normal bowel sounds, Soft, Non distended, No organomegaly, Other (Mild generalized tenderness the patient states is always present.) - Back Back: No CVA TTP, No spinal TTP - Derm Derm: Normal color, Warm and dry, No rash - Extremities Extremities: No deformity, No edema - Neuro Neuro: Alert and oriented X 3, 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 CLOUDY Urine pH 5.5 Ur Specific Ideal >=1.030 H Urine Protein NEGATIVE Urine Glucose (UA) NEGATIVE Urine Ketones NEGATIVE Urine Occult Blood MODERATE H Urine Nitrite NEGATIVE Urine Bilirubin NEGATIVE Urine Urobilinogen 0.2 (NORMAL) Ur Leukocyte Esterase MODERATE H Urine RBC 6-10 H Urine WBC 6-10 H Ur Squamous Epith Cells MOD Squamous H Urine Bacteria Moderate H Urine Mucus Moderate Strands Ur Microscopic Review INDICATED Urine Culture Comments NOT INDICATED Urine HCG, Qual NEGATIVE PD MEDICAL DECISION MAKING - ED course Complexity details: considered differential, d/w patient ED course: 20-year-old female with urinary symptoms for the past 3 days has a history of prior infections she is currently symptomatic we will treat her with Septra. I have encouraged patient to follow-up with urology again to consider urethral dilation if she has recurrence of symptoms frequently again as she has in the past. Departure - Departure Disposition: 01 Home, Self Care Clinical Impression: Urinary tract infection Qualifiers: Urinary tract infection type: acute cystitis Hematuria presence: with hematuria Qualified Code(s): N30.01 - Acute cystitis with hematuria Condition: Stable Instructions: ED UTI Cystitis Female Follow-Up: [facility] [Provider Group] Prescriptions: Sulfamethox/Trimeth 800/160 [Bactrim Ds] 1 each PO BID #10 tablet Comments: Today on your urinalysis the urine looks concentrated consistent with dehyd ration make sure you drink lots of extra fluids to flush her bladder out to resolve this infection.
[2021-03-05 00:17] VITALS: BP 129/81
== END 2021-03-05 00:17 | disposition home or self-care (01) ==
LOC: ED 23:29
DX: N30.01 Acute cystitis with hematuria (principal)
CPT/HCPCS: 81001; 81025; 99283; A9270; 81003; 87086

== ENCOUNTER 2021-03-31 00:22 | Emergency (ER) | payer MEDICAID ==
--- OUTSIDE RECORDS SUMMARY | 2021-03-31 00:25 | EXTERNAL MEDICAL SUMMARY RPT | Continuity of Care Document ---
:2000 Demographics Phone Unavailable Preferred Language Persian Marital Status Unknown Confucianist Affiliation Unknown Race Unknown Ethnic Group Unknown Author Organization [place] Address [address] [id number] Phone Care Team Providers Name Role Phone RN Unavailable Unavailable Satin Finisher Unavailable Unavailable PA-C Unavailable Unavailable Lanker Unavailable Unavailable Medications date description facility [id number] [facility] All [id number] [facility] All 20210307 Fluconazole 150 MG Oral Tablet [facility] 26796095 [facility] All 69332246 [facility] All 72670714 [facility] All 02619518 [facility] All 33804194 [facility] All 01614585 [facility] All Problems date description facility 20210318 Viral infection, unspecified All 31874988 Viral disease All 78497014 Urine C&S All 20210318 Urinary tract infectious disease All 76813646 Urinary tract infection, site not speci fied All 20210318 Urinalysis, Microscopic Exam Only All 66513751 Unspecified viral infection All 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 93026014 Urticaria All 50978080 Urinalysis with Microscopic Exam, Cultu re in Indicated All 46283756 Unspecified urticaria All 11007059 COMPREHENSIVE METABOLIC PANEL All 42757424 CBC W/Diff/Plt All 69464435 Urticaria, unspecified All 80493995 Sed Rate All Procedures date description facility 03030847 POC HCG All 72998212 POC URINALYSIS DIP All 81141890 [facility] 82162504 Diphenhydramine capsules 25 mg All 41420475 Med Administration ([facility]) All 03992363 Ketorolac Tromethamine 30 mg/ml [facility] 80196399 Dexamethasone Sodium Phosphate Inj 10mg /1mL All 44217300 IM or SQ Injection All 77413618 Diphenhydramine capsules 25 mg All 68845581 Med Administration ([facility]) All 67600363 Ketorolac Tromethamine 30 mg/ml [facility] 63329233 Dexamethasone Sodium Phosphate Inj 10mg /1mL All 71805286 IM or SQ Injection All 05948302 Diphenhydramine capsules 25 mg All 20210107 Med Administration ([facility]) All 20210107 Ketorolac Tromethamine 30 mg/ml Soln [facility] 20210107 Dexamethasone Sodium Phosphate Inj 10mg /1mL All 20210107 IM or SQ Injection All Results test status date ordered by attending specimen lynnette e Urobilinogen_Presence_ unknown 20210318 unknown unknown unknown in_Urine_by_Test_strip Specific_gravity_of_Ur unknown 20210318 unknown unknown unknown ine_by_Test_strip pH_of_Urine_by_Test_st unknown 20210318 unknown unknown unknown rip Nitrite_Presence_in_Ur unknown 20210318 unknown unknown unknown ine_by_Test_strip Leukocyte_esterase_Pre unknown 20210318 unknown unknown unknown sence_in_Urine_by_Test_ strip Ketones_Mass_volume_in unknown 20210318 unknown unknown unknown _Urine_by_Test_strip Glucose_Mass_volume_in unknown 20210318 unknown unknown unknown _Urine_by_Test_strip Color_of_Urine unknown 20210318 unknown unknown unknown Bilirubin.total_Presen unknown 20210318 unknown unknown unknown ce_in_Urine_by_Test_str ip Appearance_of_Urine unknown 20210318 unknown unknown unk nown urinalysis_routine unknown 16246300 unknown unknown unkn own appearance_urine unknown 20210318 unknown unknown unknow n leukocyte_esterase_uri unknown 20210318 unknown unknown unknown ne_by_dipstick urobilinogen_urine_sem unknown 20210318 unknown unknown unknown iquantitative_dipstick_ specific_gravity_urine unknown 20210318 unknown unknown unknown pH_urine_semiquantitat unknown 55705097 unknown unknown unknown huang nitrite_urine_semiquan unknown 20210318 unknown unknown unknown titative ketones_urine_by_test_ unknown 20210318 unknown unknown unknown strip bilirubin_urine unknown 51224646 unknown unknown unknown urine_color unknown 20210318 unknown unknown unknown human_chorionic_gonado unknown 16260598 unknown unknown unknown tropin_urine_qualitativ e_urine_pregnancy_test_ Choriogonadotropin_pre unknown 20190937 unknown unknown unknown gnancy_test_Presence_in _Urine Albumin_Presence_in_Ur unknown 59592225 unknown unknown unknown ine RBC_urine_dipstick unknown 20210318 unknown unknown unkn own Erythrocytes_area_in_U unknown 14027743 unknown unknown unknown rine_sediment_by_Micros copy_high_power_field glucose_urine_semiquan unknown 42516062 unknown unknown unknown titative protein_urine_semiquan unknown 50465252 unknown unknown unknown titative_dipstick_ Urine_HCG_Exp_Date_CLI unknown 72683615 unknown unknown unknown A_Waived_ Urine_HCG_Lot_Number_C unknown 29987505 unknown unknown unknown LIA_Waived_ DIPSTICK_URINE_STRIP_L unknown 72967103 unknown unknown unknown OT_NUMBER urea_nitrogen_blood unknown 57693307 unknown unknown unk nown Erythrocytes_volume_in unknown 04918898 unknown unknown unknown _Blood_by_Automated_cou nt Erythrocyte_distributi unknown 14516092 unknown unknown unknown on_width_Ratio_by_Autom ated_count MCV_Entitic_volume_by_ unknown 91384936 unknown unknown unknown Automated_count MCH_Entitic_mass_by_Au unknown 76434925 unknown unknown unknown tomated_count Platelets_volume_in_Bl unknown 50976656 unknown unknown unknown ood_by_Automated_count Platelet_mean_volume_E unknown 39927040 unknown unknown unknown ntitic_volume_in_Blood_ by_Rees-Mimi neutrophil_count_blood unknown 48356389 unknown unknown unknown monocyte_count_blood unknown 58372688 unknown unknown un known lymphocyte_count_blood unknown 87615601 unknown unknown unknown Hemoglobin_Mass_volume unknown 49723301 unknown unknown unknown _in_Blood eosinophil_count_blood unknown 31747513 unknown unknown unknown Basophils_volume_in_Bl unknown 12948650 unknown unknown unknown ood_by_Manual_count leukocyte_count_blood unknown 51083028 unknown unknown u nknown erythrocyte_RBC_count unknown 42793385 unknown unknown u nknown Leukocytes_volume_in_B unknown 06272635 unknown unknown unknown lood_by_Automated_count Glomerular_Filtration_ unknown 32485285 unknown unknown unknown rate platelet_count unknown 59596216 unknown unknown unknown hemoglobin_blood unknown 42807807 unknown unknown unknow n hematocrit_blood unknown 20363426 unknown unknown unknow n erythrocyte_sedimentat unknown 87037373 unknown unknown unknown ion_rate potassium_blood unknown 26912264 unknown unknown unknown WBC_urine_on_microscop unknown 54806677 unknown unknown unknown y Urobilinogen_Presence_ unknown 12011583 unknown unknown unknown in_Urine_by_Test_strip Specific_gravity_of_Ur unknown 08711371 unknown unknown unknown ine_by_Test_strip pH_of_Urine_by_Test_st unknown 08556262 unknown unknown unknown rip Nitrite_Presence_in_Ur unknown 14265235 unknown unknown unknown ine_by_Test_strip Leukocyte_esterase_Pre unknown 41607775 unknown unknown unknown sence_in_Urine_by_Test_ strip Ketones_Mass_volume_in unknown 22751005 unknown unknown unknown _Urine_by_Test_strip Glucose_Mass_volume_in unknown 61381372 unknown unknown unknown _Urine_by_Test_strip Color_of_Urine unknown 78130979 unknown unknown unknown Bilirubin.total_Presen unknown 18629406 unknown unknown unknown ce_in_Urine_by_Test_str ip Appearance_of_Urine unknown 58506577 unknown unknown unk nown clarity_urine_point unknown 74605904 unknown unknown unk nown pH_study_of_acidity unknown 73913437 unknown unknown unk nown Glomerular_filtration_r unknown 96371658 unknown unknown unknown ate_1.73_sq_M.predicted _among_non-blacks_Volum e_Rate_Area_in_Serum_Pl asma_or_Blood_by_Creati nine-based_formula_MDRD _ urinalysis_routine unknown 98593582 unknown unknown unkn own Hematocrit_Volume_Frac unknown 38439034 unknown unknown unknown tion_of_Blood_by_Automa ted_count Erythrocyte_sedimentat unknown 61759082 unknown unknown unknown ion_rate_by_Westergren_ method bilirubin_serum_total unknown 92709469 unknown unknown u nknown alanine_aminotransfera unknown 97254322 unknown unknown unknown se_SGPT_serum carbon_dioxide_serum_t unknown 35388255 unknown unknown unknown otal aspartate_aminotransfe unknown 32949171 unknown unknown unknown rase_SGOT_serum protein_total_serum unknown 28773234 unknown unknown unk nown blood_glucose unknown 53191390 unknown unknown unknown potassium_blood unknown 07479884 unknown unknown unknown glucose_urine unknown 67886799 unknown unknown unknown appearance_urine unknown 10325379 unknown unknown unknow n leukocyte_esterase_uri unknown 58407413 unknown unknown unknown ne_by_dipstick urobilinogen_urine_sem unknown 30366691 unknown unknown unknown iquantitative_dipstick_ specific_gravity_urine unknown 19019522 unknown unknown unknown pH_urine_semiquantitat unknown 74462223 unknown unknown unknown huang nitrite_urine_semiquan unknown 12017004 unknown unknown unknown titative ketones_urine_by_test_ unknown 84077574 unknown unknown unknown strip bilirubin_urine unknown 03808620 unknown unknown unknown mean_corpuscular_volum unknown 98883906 unknown unknown unknown e_RBC Urea_nitrogen_Mass_vol unknown 50411344 unknown unknown unknown ume_in_Serum_or_Plasma globulin_serum unknown 90404363 unknown unknown unknown alkaline_phosphatase_s unknown 65506327 unknown unknown unknown arlyn Sodium_Moles_volume_in unknown 30126504 unknown unknown unknown _Serum_or_Plasma Protein_Mass_volume_in unknown 07930609 unknown unknown unknown _Serum_or_Plasma eosinophil_count_blood unknown 41454468 unknown unknown unknown anion_gap_serum unknown 71843754 unknown unknown unknown mean_platelet_volume unknown 76198710 unknown unknown un known urine_color unknown 62327288 unknown unknown unknown basophil_count_blood unknown 18314857 unknown unknown un known monocyte_count_blood unknown 45884850 unknown unknown un known lymphocyte_count_blood unknown 28824975 unknown unknown unknown neutrophil_count_blood unknown 32728779 unknown unknown unknown Glucose_Mass_volume_in unknown 61991224 unknown unknown unknown _Urine Glucose_Mass_volume_in unknown 92438373 unknown unknown unknown _Serum_or_Plasma Globulin_Mass_volume_i unknown 09819794 unknown unknown unknown n_Serum Creatinine_Mass_volume unknown 98882116 unknown unknown unknown _in_Serum_or_Plasma Chloride_Moles_volume_ unknown 08652679 unknown unknown unknown in_Serum_or_Plasma carbon_dioxide_serum_t unknown 99972882 unknown unknown unknown otal Calcium_Moles_volume_i unknown 82825507 unknown unknown unknown n_Serum_or_Plasma albumin_serum unknown 25329795 unknown unknown unknown Bilirubin.total_Mass_v unknown 12470432 unknown unknown unknown olume_in_Serum_or_Plasm a Aspartate_aminotransfe unknown 29814798 unknown unknown unknown rase_Enzymatic_activity _volume_in_Serum_or_Pla sma Anion_gap_4_in_Serum_o unknown 55179443 unknown unknown unknown r_Plasma creatinine_serum unknown 26547795 unknown unknown unknow n Alkaline_phosphatase_E unknown 41892844 unknown unknown unknown nzymatic_activity_volum e_in_Blood Albumin_Globulin_Mass_ unknown 40610359 unknown unknown unknown Ratio_in_Serum_or_Plasm a Albumin_Presence_in_Ur unknown 29343309 unknown unknown unknown ine Albumin_Mass_volume_in unknown 30828048 unknown unknown unknown _Serum_or_Plasma Alanine_aminotransfera unknown 30563428 unknown unknown unknown se_Enzymatic_activity_v olume_in_Serum_or_Plasm a mean_corpuscular_hemog unknown 64960390 unknown unknown unknown lobin_concentration_rbc RBC_urine_dipstick unknown 36966969 unknown unknown unkn own sodium_serum unknown 89121503 unknown unknown unknown albumin_globulin_ratio unknown 54375870 unknown unknown unknown _serum Erythrocytes_area_in_U unknown 33523039 unknown unknown unknown rine_sediment_by_Micros copy_high_power_field chloride_serum unknown 15741529 unknown unknown unknown glucose_urine_semiquan unknown 46312667 unknown unknown unknown titative protein_urine_semiquan unknown 84466838 unknown unknown unknown titative_dipstick_ calcium_serum unknown 13931184 unknown unknown unknown mean_corpuscular_hemog unknown 04826922 unknown unknown unknown lobin_RBC red_blood_cell_distrib unknown 10593895 unknown unknown unknown ution_width WBC_urine_on_microscop unknown 68076931 unknown unknown unknown y DIPSTICK_URINE_STRIP_L unknown 22359338 unknown unknown unknown OT_NUMBER T unknown 48445289 unknown unknown unknown WBC_URINE unknown 39475454 unknown unknown unknown UROBILINOGEN_URINE unknown 21689191 unknown unknown unkn own SPECIFIC_GRAVITY_URINE unknown 29590482 unknown unknown unknown T unknown 84632626 unknown unknown unknown T unknown 07578798 unknown unknown unknown T unknown 92598992 unknown unknown unknown T unknown 17022438 unknown unknown unknown T unknown 55018828 unknown unknown unknown T unknown 84350965 unknown unknown unknown T unknown 25018265 unknown unknown unknown T unknown 41225016 unknown unknown unknown T unknown 43137538 unknown unknown unknown T unknown 24649300 unknown unknown unknown T unknown 87875761 unknown unknown unknown PH_URINE unknown 87432182 unknown unknown unknown NITRITE_URINE unknown 90846622 unknown unknown unknown LEUKOCYTE_ESTERASE_URI unknown 84176039 unknown unknown unknown NE KETONES_URINE_UA_ unknown 93250560 unknown unknown unkno wn GLUCOSE_URINE_UA_ unknown 85387748 unknown unknown unkno wn COLOR_URINE unknown 54770729 unknown unknown unknown CLARITY_URINE unknown 49432773 unknown unknown unknown BILIRUBIN_URINE unknown 23684907 unknown unknown unknown T unknown 74120903 unknown unknown unknown T unknown 48924529 unknown unknown unknown T unknown 37103114 unknown unknown unknown T unknown 18359189 unknown unknown unknown T unknown 08818874 unknown unknown unknown NEUTROPHILS_AUTO_ unknown 98810717 unknown unknown unkno wn T unknown 50112036 unknown unknown unknown T unknown 00861772 unknown unknown unknown T unknown 15078737 unknown unknown unknown MONOCYTES_AUTO_ unknown 99996147 unknown unknown unknown T unknown 33350820 unknown unknown unknown T unknown 24051008 unknown unknown unknown T unknown 73531313 unknown unknown unknown T unknown 36042992 unknown unknown unknown LYMPHOCYTES_AUTO_ unknown 52787983 unknown unknown unkno wn T unknown 71194273 unknown unknown unknown T unknown 90185024 unknown unknown unknown T unknown 73749812 unknown unknown unknown T unknown 21620568 unknown unknown unknown T unknown 10947171 unknown unknown unknown T unknown 31235589 unknown unknown unknown T unknown 52331475 unknown unknown unknown GFR_-_MDRD unknown 57949192 unknown unknown unknown T unknown 66640114 unknown unknown unknown T unknown 07448972 unknown unknown unknown EOSINOPHILS_AUTO_ unknown 03819385 unknown unknown unkno wn T unknown 13784220 unknown unknown unknown T unknown 14110598 unknown unknown unknown T unknown 56179712 unknown unknown unknown T unknown 05168172 unknown unknown unknown T unknown 13598703 unknown unknown unknown T unknown 90025452 unknown unknown unknown BILIRUBIN_TOTAL unknown 72120518 unknown unknown unknown BASOPHILS_AUTO_ unknown 42004011 unknown unknown unknown T unknown 75477954 unknown unknown unknown T unknown 80042902 unknown unknown unknown T unknown 06495808 unknown unknown unknown T unknown 50909663 unknown unknown unknown ALT_ALANINE_AMINOTRANS unknown 73314196 unknown unknown unknown FERASE ALKALINE_PHOSPHATASE unknown 39688591 unknown unknown un known T unknown 98895974 unknown unknown unknown T unknown 80868461 unknown unknown unknown ALBUMIN_GLOBULIN_RATIO unknown 35344760 unknown unknown unknown urea_nitrogen_blood unknown 37203356 unknown unknown unk nown Erythrocytes_volume_in unknown 58665384 unknown unknown unknown _Blood_by_Automated_cou nt Erythrocyte_distributi unknown 21396445 unknown unknown unknown on_width_Ratio_by_Autom ated_count MCV_Entitic_volume_by_ unknown 58165955 unknown unknown unknown Automated_count MCH_Entitic_mass_by_Au unknown 83913593 unknown unknown unknown tomated_count Platelets_volume_in_Bl unknown 27772325 unknown unknown unknown ood_by_Automated_count Platelet_mean_volume_E unknown 13158139 unknown unknown unknown ntitic_volume_in_Blood_ by_Rees-Mimi neutrophil_count_blood unknown 06193005 unknown unknown unknown monocyte_count_blood unknown 28152917 unknown unknown un known lymphocyte_count_blood unknown 81032163 unknown unknown unknown Hemoglobin_Mass_volume unknown 94512801 unknown unknown unknown _in_Blood eosinophil_count_blood unknown 27284456 unknown unknown unknown Basophils_volume_in_Bl unknown 24891190 unknown unknown unknown ood_by_Manual_count leukocyte_count_blood unknown 95265400 unknown unknown u nknown erythrocyte_RBC_count unknown 47303649 unknown unknown u nknown Leukocytes_volume_in_B unknown 88208817 unknown unknown unknown lood_by_Automated_count Glomerular_Filtration_ unknown 75787260 unknown unknown unknown rate platelet_count unknown 69499467 unknown unknown unknown hemoglobin_blood unknown 75605993 unknown unknown unknow n hematocrit_blood unknown 80781143 unknown unknown unknow n erythrocyte_sedimentat unknown 61682889 unknown unknown unknown ion_rate potassium_blood unknown 75650986 unknown unknown unknown WBC_urine_on_microscop unknown 90288868 unknown unknown unknown y clarity_urine_point unknown 69781769 unknown unknown unk nown pH_study_of_acidity unknown 56187190 unknown unknown unk nown Glomerular_filtration_r unknown 74654433 unknown unknown unknown ate_1.73_sq_M.predicted _among_non-blacks_Volum e_Rate_Area_in_Serum_Pl asma_or_Blood_by_Creati nine-based_formula_MDRD _ Hematocrit_Volume_Frac unknown 49378178 unknown unknown unknown tion_of_Blood_by_Automa ted_count Erythrocyte_sedimentat unknown 84081228 unknown unknown unknown ion_rate_by_Westergren_ method bilirubin_serum_total unknown 03251495 unknown unknown u nknown alanine_aminotransfera unknown 97701293 unknown unknown unknown se_SGPT_serum carbon_dioxide_serum_t unknown 10121616 unknown unknown unknown otal aspartate_aminotransfe unknown 78384225 unknown unknown unknown rase_SGOT_serum protein_total_serum unknown 27738005 unknown unknown unk nown blood_glucose unknown 75623299 unknown unknown unknown potassium_blood unknown 57843840 unknown unknown unknown glucose_urine unknown 41090918 unknown unknown unknown mean_corpuscular_volum unknown 02752809 unknown unknown unknown e_RBC Urea_nitrogen_Mass_vol unknown 04174694 unknown unknown unknown ume_in_Serum_or_Plasma globulin_serum unknown 13961634 unknown unknown unknown alkaline_phosphatase_s unknown 21841667 unknown unknown unknown arlyn Sodium_Moles_volume_in unknown 33532306 unknown unknown unknown _Serum_or_Plasma Protein_Mass_volume_in unknown 53069877 unknown unknown unknown _Serum_or_Plasma eosinophil_count_blood unknown 75816693 unknown unknown unknown anion_gap_serum unknown 89624203 unknown unknown unknown mean_platelet_volume unknown 53853154 unknown unknown un known basophil_count_blood unknown 02441730 unknown unknown un known monocyte_count_blood unknown 55016003 unknown unknown un known lymphocyte_count_blood unknown 58088853 unknown unknown unknown neutrophil_count_blood unknown 18460410 unknown unknown unknown Glucose_Mass_volume_in unknown 17587098 unknown unknown unknown _Urine Glucose_Mass_volume_in unknown 32084807 unknown unknown unknown _Serum_or_Plasma Globulin_Mass_volume_i unknown 80608508 unknown unknown unknown n_Serum Creatinine_Mass_volume unknown 40740386 unknown unknown unknown _in_Serum_or_Plasma Chloride_Moles_volume_ unknown 01689187 unknown unknown unknown in_Serum_or_Plasma carbon_dioxide_serum_t unknown 21260176 unknown unknown unknown otal Calcium_Moles_volume_i unknown 05688249 unknown unknown unknown n_Serum_or_Plasma albumin_serum unknown 16049439 unknown unknown unknown Bilirubin.total_Mass_v unknown 32770304 unknown unknown unknown olume_in_Serum_or_Plasm a Aspartate_aminotransfe unknown 11050792 unknown unknown unknown rase_Enzymatic_activity _volume_in_Serum_or_Pla sma Anion_gap_4_in_Serum_o unknown 73103888 unknown unknown unknown r_Plasma creatinine_serum unknown 03934710 unknown unknown unknow n Alkaline_phosphatase_E unknown 56718441 unknown unknown unknown nzymatic_activity_volum e_in_Blood Albumin_Globulin_Mass_ unknown 54058815 unknown unknown unknown Ratio_in_Serum_or_Plasm a Albumin_Mass_volume_in unknown 27444723 unknown unknown unknown _Serum_or_Plasma Alanine_aminotransfera unknown 76600113 unknown unknown unknown se_Enzymatic_activity_v olume_in_Serum_or_Plasm a mean_corpuscular_hemog unknown 53563842 unknown unknown unknown lobin_concentration_rbc sodium_serum unknown 42940311 unknown unknown unknown albumin_globulin_ratio unknown 68082980 unknown unknown unknown _serum chloride_serum unknown 14522248 unknown unknown unknown calcium_serum unknown 44984853 unknown unknown unknown mean_corpuscular_hemog unknown 43821991 unknown unknown unknown lobin_RBC red_blood_cell_distrib unknown 46523159 unknown unknown unknown ution_width WBC_urine_on_microscop unknown 00978951 unknown unknown unknown y T unknown 40759170 unknown unknown unknown WBC_URINE unknown 30087903 unknown unknown unknown T unknown 33760210 unknown unknown unknown T unknown 18790408 unknown unknown unknown T unknown 44792790 unknown unknown unknown T unknown 06547453 unknown unknown unknown PH_URINE unknown 72510812 unknown unknown unknown GLUCOSE_URINE_UA_ unknown 62243900 unknown unknown unkno wn CLARITY_URINE unknown 50049594 unknown unknown unknown T unknown 25857121 unknown unknown unknown T unknown 15489632 unknown unknown unknown T unknown 17422755 unknown unknown unknown T unknown 42173290 unknown unknown unknown T unknown 83057023 unknown unknown unknown NEUTROPHILS_AUTO_ unknown 36823707 unknown unknown unkno wn T unknown 82803202 unknown unknown unknown T unknown 09723012 unknown unknown unknown T unknown 13748889 unknown unknown unknown MONOCYTES_AUTO_ unknown 77696265 unknown unknown unknown T unknown 31202453 unknown unknown unknown T unknown 34179182 unknown unknown unknown T unknown 28077077 unknown unknown unknown T unknown 88649403 unknown unknown unknown LYMPHOCYTES_AUTO_ unknown 28155409 unknown unknown unkno wn T unknown 38592925 unknown unknown unknown T unknown 84853622 unknown unknown unknown T unknown 74702222 unknown unknown unknown T unknown 78948107 unknown unknown unknown T unknown 08985674 unknown unknown unknown T unknown 77568598 unknown unknown unknown T unknown 35072763 unknown unknown unknown GFR_-_MDRD unknown 36805939 unknown unknown unknown T unknown 29007873 unknown unknown unknown T unknown 93842193 unknown unknown unknown EOSINOPHILS_AUTO_ unknown 93306421 unknown unknown unkno wn T unknown 18562830 unknown unknown unknown T unknown 93070890 unknown unknown unknown T unknown 80840260 unknown unknown unknown T unknown 78055150 unknown unknown unknown T unknown 15675753 unknown unknown unknown T unknown 25763894 unknown unknown unknown BILIRUBIN_TOTAL unknown 99390929 unknown unknown unknown BASOPHILS_AUTO_ unknown 81250431 unknown unknown unknown T unknown 57044666 unknown unknown unknown T unknown 82341184 unknown unknown unknown T unknown 61743935 unknown unknown unknown T unknown 26076984 unknown unknown unknown ALT_ALANINE_AMINOTRANS unknown 03381431 unknown unknown unknown FERASE ALKALINE_PHOSPHATASE unknown 26053062 unknown unknown un known T unknown 83380476 unknown unknown unknown T unknown 29055830 unknown unknown unknown ALBUMIN_GLOBULIN_RATIO unknown 14062757 unknown unknown unknown urea_nitrogen_blood unknown 79768786 unknown unknown unk nown Erythrocytes_volume_in unknown 53772037 unknown unknown unknown _Blood_by_Automated_cou nt Erythrocyte_distributi unknown 22001676 unknown unknown unknown on_width_Ratio_by_Autom ated_count MCV_Entitic_volume_by_ unknown 97172297 unknown unknown unknown Automated_count MCH_Entitic_mass_by_Au unknown 81471570 unknown unknown unknown tomated_count Platelets_volume_in_Bl unknown 14577521 unknown unknown unknown ood_by_Automated_count Platelet_mean_volume_E unknown 06824400 unknown unknown unknown ntitic_volume_in_Blood_ by_Rees-Mimi neutrophil_count_blood unknown 97165454 unknown unknown unknown monocyte_count_blood unknown 07352820 unknown unknown un known lymphocyte_count_blood unknown 71525457 unknown unknown unknown Hemoglobin_Mass_volume unknown 95010223 unknown unknown unknown _in_Blood eosinophil_count_blood unknown [id number] unknown unknown unknown Basophils_volume_in_Bl unknown [id number] unknown unknown unknown ood_by_Manual_count leukocyte_count_blood unknown [id number] unknown unknown u nknown erythrocyte_RBC_count unknown 00311045 unknown unknown u nknown Leukocytes_volume_in_B unknown 44193937 unknown unknown unknown lood_by_Automated_count Glomerular_Filtration_ unknown 05861403 unknown unknown unknown rate platelet_count unknown 71931808 unknown unknown unknown hemoglobin_blood unknown 09642669 unknown unknown unknow n hematocrit_blood unknown 48195448 unknown unknown unknow n erythrocyte_sedimentat unknown 41063054 unknown unknown unknown ion_rate potassium_blood unknown 57073708 unknown unknown unknown WBC_urine_on_microscop unknown 08761706 unknown unknown unknown y Urobilinogen_Presence_ unknown [id number] unknown unknown unknown in_Urine_by_Test_strip Urobilinogen_Presence_ unknown 71511596 unknown unknown unknown in_Urine_by_Test_strip Specific_gravity_of_Ur unknown 27974717 unknown unknown unknown ine_by_Test_strip Specific_gravity_of_Ur unknown 31364587 unknown unknown unknown ine_by_Test_strip pH_of_Urine_by_Test_st unknown 98914649 unknown unknown unknown rip Nitrite_Presence_in_Ur unknown 20441335 unknown unknown unknown ine_by_Test_strip Nitrite_Presence_in_Ur unknown 60623088 unknown unknown unknown ine_by_Test_strip Leukocyte_esterase_Pre unknown 89623145 unknown unknown unknown sence_in_Urine_by_Test_ strip Leukocyte_esterase_Pre unknown 31722124 unknown unknown unknown sence_in_Urine_by_Test_ strip Ketones_Mass_volume_in unknown 97134130 unknown unknown unknown _Urine_by_Test_strip Ketones_Mass_volume_in unknown 85121218 unknown unknown unknown _Urine_by_Test_strip Glucose_Mass_volume_in unknown 62058268 unknown unknown unknown _Urine_by_Test_strip Color_of_Urine unknown 77711126 unknown unknown unknown Color_of_Urine unknown 98110824 unknown unknown unknown Bilirubin.total_Presen unknown 67091715 unknown unknown unknown ce_in_Urine_by_Test_str ip Bilirubin.total_Presen unknown 98477704 unknown unknown unknown ce_in_Urine_by_Test_str ip Appearance_of_Urine unknown 66133853 unknown unknown unk nown clarity_urine_point unknown 84657345 unknown unknown unk nown pH_study_of_acidity unknown 49170463 unknown unknown unk nown Glomerular_filtration_r unknown 58268957 unknown unknown unknown ate_1.73_sq_M.predicted _among_non-blacks_Volum e_Rate_Area_in_Serum_Pl asma_or_Blood_by_Creati nine-based_formula_MDRD _ urinalysis_routine unknown 80911810 unknown unknown unkn own Hematocrit_Volume_Frac unknown 19025994 unknown unknown unknown tion_of_Blood_by_Automa ted_count Erythrocyte_sedimentat unknown 56037622 unknown unknown unknown ion_rate_by_[place]_ method bilirubin_serum_total unknown 25187274 unknown unknown u nknown alanine_aminotransfera unknown 59269935 unknown unknown unknown se_SGPT_serum carbon_dioxide_serum_t unknown 30881781 unknown unknown unknown otal aspartate_aminotransfe unknown 25615708 unknown unknown unknown rase_SGOT_serum protein_total_serum unknown 18733964 unknown unknown unk nown blood_glucose unknown 04312987 unknown unknown unknown potassium_blood unknown 31179094 unknown unknown unknown glucose_urine unknown 38962462 unknown unknown unknown appearance_urine unknown 10933386 unknown unknown unknow n leukocyte_esterase_uri unknown 36515092 unknown unknown unknown ne_by_dipstick leukocyte_esterase_uri unknown 64221314 unknown unknown unknown ne_by_dipstick urobilinogen_urine_sem unknown 89892819 unknown unknown unknown iquantitative_dipstick_ urobilinogen_urine_sem unknown 92395079 unknown unknown unknown iquantitative_dipstick_ specific_gravity_urine unknown 34393371 unknown unknown unknown specific_gravity_urine unknown 09807578 unknown unknown unknown pH_urine_semiquantitat unknown 79752523 unknown unknown unknown huang nitrite_urine_semiquan unknown 97380079 unknown unknown unknown titative nitrite_urine_semiquan unknown 84576021 unknown unknown unknown titative ketones_urine_by_test_ unknown 41279198 unknown unknown unknown strip ketones_urine_by_test_ unknown 43416392 unknown unknown unknown strip bilirubin_urine unknown 71145620 unknown unknown unknown bilirubin_urine unknown 46438953 unknown unknown unknown mean_corpuscular_volum unknown 85459373 unknown unknown unknown e_RBC Urea_nitrogen_Mass_vol unknown 68314987 unknown unknown unknown ume_in_Serum_or_Plasma globulin_serum unknown 09702548 unknown unknown unknown alkaline_phosphatase_s unknown 18626348 unknown unknown unknown arlyn Sodium_Moles_volume_in unknown 18169386 unknown unknown unknown _Serum_or_Plasma Protein_Mass_volume_in unknown 98680228 unknown unknown unknown _Serum_or_Plasma eosinophil_count_blood unknown 08747907 unknown unknown unknown anion_gap_serum unknown 19343929 unknown unknown unknown mean_platelet_volume unknown 15265360 unknown unknown un known urine_color unknown 59762214 unknown unknown unknown urine_color unknown 45663128 unknown unknown unknown basophil_count_blood unknown 57458022 unknown unknown un known monocyte_count_blood unknown 44141747 unknown unknown un known lymphocyte_count_blood unknown 37072821 unknown unknown unknown neutrophil_count_blood unknown 65992186 unknown unknown unknown Glucose_Mass_volume_in unknown 10418867 unknown unknown unknown _Urine Glucose_Mass_volume_in unknown 64231430 unknown unknown unknown _Serum_or_Plasma Globulin_Mass_volume_i unknown 97878091 unknown unknown unknown n_Serum Creatinine_Mass_volume unknown 66564372 unknown unknown unknown _in_Serum_or_Plasma Chloride_Moles_volume_ unknown 21323554 unknown unknown unknown in_Serum_or_Plasma carbon_dioxide_serum_t unknown 84547537 unknown unknown unknown otal Calcium_Moles_volume_i unknown 02622258 unknown unknown unknown n_Serum_or_Plasma albumin_serum unknown 05252211 unknown unknown unknown Bilirubin.total_Mass_v unknown 69921512 unknown unknown unknown olume_in_Serum_or_Plasm a Aspartate_aminotransfe unknown 11503618 unknown unknown unknown rase_Enzymatic_activity _volume_in_Serum_or_Pla sma Anion_gap_4_in_Serum_o unknown 42314749 unknown unknown unknown r_Plasma creatinine_serum unknown 42820007 unknown unknown unknow n Alkaline_phosphatase_E unknown 99778094 unknown unknown unknown nzymatic_activity_volum e_in_Blood Albumin_Globulin_Mass_ unknown 35019866 unknown unknown unknown Ratio_in_Serum_or_Plasm a Albumin_Presence_in_Ur unknown 32432580 unknown unknown unknown ine Albumin_Mass_volume_in unknown 84029300 unknown unknown unknown _Serum_or_Plasma Alanine_aminotransfera unknown 36465479 unknown unknown unknown se_Enzymatic_activity_v olume_in_Serum_or_Plasm a mean_corpuscular_hemog unknown 36251562 unknown unknown unknown lobin_concentration_rbc RBC_urine_dipstick unknown 24185776 unknown unknown unkn own sodium_serum unknown 30384635 unknown unknown unknown albumin_globulin_ratio unknown 20035192 unknown unknown unknown _serum Erythrocytes_area_in_U unknown 75190099 unknown unknown unknown rine_sediment_by_Micros copy_high_power_field chloride_serum unknown 41104084 unknown unknown unknown glucose_urine_semiquan unknown 30170326 unknown unknown unknown titative protein_urine_semiquan unknown 08789472 unknown unknown unknown titative_dipstick_ calcium_serum unknown 39015008 unknown unknown unknown mean_corpuscular_hemog unknown 69294652 unknown unknown unknown lobin_RBC red_blood_cell_distrib unknown 19846717 unknown unknown unknown ution_width WBC_urine_on_microscop unknown 70775942 unknown unknown unknown y DIPSTICK_URINE_STRIP_L unknown 47267536 unknown unknown unknown OT_NUMBER T unknown 76579982 unknown unknown unknown WBC_URINE unknown 20117997 unknown unknown unknown UROBILINOGEN_URINE unknown 53090043 unknown unknown unkn own SPECIFIC_GRAVITY_URINE unknown 51714373 unknown unknown unknown T unknown 90331115 unknown unknown unknown T unknown 87421104 unknown unknown unknown T unknown 34306751 unknown unknown unknown T unknown 20027973 unknown unknown unknown T unknown 67468493 unknown unknown unknown T unknown 92182095 unknown unknown unknown T unknown 12432759 unknown unknown unknown T unknown 58107986 unknown unknown unknown T unknown 47564607 unknown unknown unknown T unknown 30307321 unknown unknown unknown T unknown 79102793 unknown unknown unknown PH_URINE unknown 10016754 unknown unknown unknown NITRITE_URINE unknown 20789833 unknown unknown unknown LEUKOCYTE_ESTERASE_URI unknown 90975130 unknown unknown unknown NE KETONES_URINE_UA_ unknown 58118614 unknown unknown unkno wn GLUCOSE_URINE_UA_ unknown 92419986 unknown unknown unkno wn COLOR_URINE unknown 52928223 unknown unknown unknown CLARITY_URINE unknown 27750186 unknown unknown unknown BILIRUBIN_URINE unknown 66484057 unknown unknown unknown T unknown 16882402 unknown unknown unknown T unknown 98687338 unknown unknown unknown T unknown 28884173 unknown unknown unknown T unknown 41721062 unknown unknown unknown T unknown 77015134 unknown unknown unknown NEUTROPHILS_AUTO_ unknown 65830745 unknown unknown unkno wn T unknown 99352415 unknown unknown unknown T unknown 38087771 unknown unknown unknown T unknown 89205676 unknown unknown unknown MONOCYTES_AUTO_ unknown 87972205 unknown unknown unknown T unknown 29400382 unknown unknown unknown T unknown 48433767 unknown unknown unknown T unknown 10371404 unknown unknown unknown T unknown 03288626 unknown unknown unknown LYMPHOCYTES_AUTO_ unknown 58506067 unknown unknown unkno wn T unknown 49592260 unknown unknown unknown T unknown 86455222 unknown unknown unknown T unknown 43245487 unknown unknown unknown T unknown 90468812 unknown unknown unknown T unknown 57513869 unknown unknown unknown T unknown 87103412 unknown unknown unknown T unknown 05299944 unknown unknown unknown GFR_-_MDRD unknown 67971360 unknown unknown unknown T unknown 03527792 unknown unknown unknown T unknown 85198627 unknown unknown unknown EOSINOPHILS_AUTO_ unknown 00561425 unknown unknown unkno wn T unknown 59071741 unknown unknown unknown T unknown 04289521 unknown unknown unknown T unknown 35977342 unknown unknown unknown T unknown 81112252 unknown unknown unknown T unknown 31610418 unknown unknown unknown T unknown 92791071 unknown unknown unknown BILIRUBIN_TOTAL unknown 38983731 unknown unknown unknown BASOPHILS_AUTO_ unknown 22060755 unknown unknown unknown T unknown 17821169 unknown unknown unknown T unknown 10126289 unknown unknown unknown T unknown 50881597 unknown unknown unknown T unknown 30267823 unknown unknown unknown ALT_ALANINE_AMINOTRANS unknown 60343592 unknown unknown unknown FERASE ALKALINE_PHOSPHATASE unknown 06581054 unknown unknown un known T unknown 80372362 unknown unknown unknown T unknown 82715015 unknown unknown unknown ALBUMIN_GLOBULIN_RATIO unknown 68615995 unknown unknown unknown facility observation status value reference units lab code abn ormal line range notes All Urobilinogen unknown negative unknown _5818-0 unkn own unknown _Presence_in_ Urine_by_Test _strip All Specific_gra unknown 1.010 unknown _5811-5 unknow n unknown vity_of_Urine _by_Test_stri p All pH_of_Urine_ unknown 7.5 unknown _5803-2 unknow n unknown by_Test_strip All Nitrite_Pres unknown negative unknown _5802-4 unkn own unknown ence_in_Urine _by_Test_stri p All Leukocyte_es unknown negative unknown _5799-2 unkn own unknown terase_Presen ce_in_Urine_b y_Test_strip All Ketones_Mass unknown small unknown _5797-6 unknow n unknown _volume_in_Ur (15) ine_by_Test_s trip All Glucose_Mass unknown negative unknown _5792-7 unkn own unknown _volume_in_Ur ine_by_Test_s trip All Color_of_Uri unknown yellow unknown _5778-6 unknow n unknown ne All Bilirubin.to unknown negative unknown _5770-3 unkn own unknown tal_Presence_ in_Urine_by_T est_strip All Appearance_o unknown clear unknown _5767-9 unknow n unknown f_Urine All urinalysis_r unknown Clean unknown _47 unknown unknown outine Catch All appearance_u unknown clear unknown _328 unknown unknown rine All leukocyte_es unknown negative unknown _327 unkno wn unknown terase_urine_ by_dipstick All urobilinogen unknown negative unknown _326 unkno wn unknown _urine_semiqu antitative_di pstick_ All specific_gra unknown 1.010 unknown _325 unknown unknown vity_urine All pH_urine_sem unknown 7.5 unknown _324 unknown unknown iquantitative All nitrite_urin unknown negative unknown _323 unkno wn unknown e_semiquantit ative All ketones_urin unknown small unknown _322 unknown unknown e_by_test_str (15) ip All bilirubin_ur unknown negative unknown _319 unkno wn unknown ine All urine_color unknown yellow unknown _2751 unknown unknown All human_chorio unknown Negative unknown _2578 unkno wn unknown nic_gonadotro pin_urine_qua litative_urin e_pregnancy_t est_ All Choriogonado unknown Negative unknown _2106-3 unkn own unknown tropin_pregna ncy_test_Pres ence_in_Urine All Albumin_Pres unknown negative unknown _1753-3 unkn own unknown ence_in_Urine All RBC_urine_di unknown negative unknown _1700005 unk nown unknown pstick All Erythrocytes unknown negative unknown _13945-1 unk nown unknown _area_in_Urin e_sediment_by _Microscopy_h igh_power_fie ld All glucose_urin unknown negative unknown _123 unkno wn unknown e_semiquantit ative All protein_urin unknown negative unknown _118 unkno wn unknown e_semiquantit ative_dipstic k_ All Urine_HCG_Ex unknown 08.31.22 unknown _114941 unkn own unknown p_Date_CLIA_W aived_ All Urine_HCG_Lo unknown 71943 unknown _114940 unknow n unknown t_Number_CLIA _Waived_ All DIPSTICK_URI unknown 9044 unknown _101400 unknow n unknown NE_STRIP_LOT_ NUMBER All urea_nitroge unknown 11 unknown mg/dL _9 unknown unknown n_blood All Erythrocytes unknown 4.56 10 unknown _789-8 unknow n unknown _volume_in_Bl 6/UL ood_by_Automa ted_count All Erythrocyte_ unknown 12.8 unknown % _788-0 unknown unknown distribution_ width_Ratio_b y_Automated_c ount All MCV_Entitic_ unknown 91.9 unknown fL _787-2 unknown unknown volume_by_Aut omated_count All MCH_Entitic_ unknown 29.2 unknown pg _785-6 unknown unknown mass_by_Autom ated_count All Platelets_vo unknown 284 10 unknown _777-3 unknown unknown lume_in_Blood 3/UL _by_Automated _count All Platelet_mea unknown 9.7 unknown fL _776-5 unknown unknown n_volume_Enti tic_volume_in _Blood_by_[place] All neutrophil_c unknown 5.1 10 unknown _752-6 unknown unknown ount_blood 3/UL All monocyte_cou unknown 0.7 10 unknown _743-5 unknown unknown nt_blood 3/UL All lymphocyte_c unknown 2.4 10 unknown _732-8 unknown unknown ount_blood 3/UL All Hemoglobin_M unknown 13.3 unknown g/dL _718-7 unknown unknown ass_volume_in _Blood All eosinophil_c unknown 0.3 10 unknown _712-0 unknown unknown ount_blood 3/UL All Basophils_vo unknown 0.1 10 unknown _705-4 unknown unknown lume_in_Blood 3/UL _by_Manual_co unt All leukocyte_co unknown 8.4 X10 unknown _68 unknow n unknown unt_blood 3/UL All erythrocyte_ unknown 4.56 10 unknown _67 unknow n unknown RBC_count 6/UL All Leukocytes_v unknown 8.4 X10 unknown _6690-2 unkno wn unknown olume_in_Bloo 3/UL d_by_Automate d_count All Glomerular_F unknown 127 unknown mL/mi _66455 unknown unknown iltration_rat n e All platelet_cou unknown 284 10 unknown _66 unknown unknown nt 3/UL All hemoglobin_b unknown 13.3 unknown g/dL _65 unknown unknown lood All hematocrit_b unknown 41.9 unknown % _64 unknown unknown lood All erythrocyte_ unknown 2 unknown mm/h _63 unknown unknown sedimentation _rate All potassium_bl unknown 3.9 unknown meq/L _6298-4 unknow n unknown ood All WBC_urine_on unknown 0-3 /HPF unknown _5821-4 unkn own unknown _microscopy All Urobilinogen unknown 0.2 unknown _5818-0 unknow n unknown _Presence_in_ (NORMAL) Urine_by_Test _strip All Specific_gra unknown 1.025 unknown _5811-5 unknow n unknown vity_of_Urine _by_Test_stri p All pH_of_Urine_ unknown 6.5 unknown _5803-2 unknow n unknown by_Test_strip All Nitrite_Pres unknown NEGATIVE unknown _5802-4 unkn own unknown ence_in_Urine _by_Test_stri p All Leukocyte_es unknown NEGATIVE unknown _5799-2 unkn own unknown terase_Presen ce_in_Urine_b y_Test_strip All Ketones_Mass unknown NEGATIVE unknown _5797-6 unkn own unknown _volume_in_Ur ine_by_Test_s trip All Glucose_Mass unknown negative unknown _5792-7 unkn own unknown _volume_in_Ur ine_by_Test_s trip All Color_of_Uri unknown YELLOW unknown _5778-6 unknow n unknown ne All Bilirubin.to unknown NEGATIVE unknown _5770-3 unkn own unknown tal_Presence_ in_Urine_by_T est_strip All Appearance_o unknown cloudy unknown _5767-9 unknow n unknown f_Urine All clarity_urin unknown HAZY unknown _5589 unknown unknown e_point All pH_study_of_ unknown 6.5 unknown _51641 unknown unknown acidity All Glomerular_fi unknown 127 unknown mL/mi _48642-3 unkno wn unknown ltration_rate n _1.73_sq_M.pr edicted_among _non-blacks_V olume_Rate_Ar ea_in_Serum_P lasma_or_Bloo d_by_Creatini ne-based_form ula_MDRD_ All urinalysis_r unknown Clean unknown _47 unknown unknown outine Catch All Hematocrit_V unknown 41.9 unknown % _4544-3 unknow n unknown olume_Fractio n_of_Blood_by _Automated_co unt All Erythrocyte_ unknown 2 unknown mm/h _4537-7 unknow n unknown sedimentation _rate_by_[place]_method All bilirubin_se unknown 0.8 unknown mg/dL _43 unknown unknown rum_total All alanine_amin unknown 17 unknown U/L _40 unknown unknown otransferase_ SGPT_serum All carbon_dioxi unknown 25 unknown mmol/ _3962 unknown unknown de_serum_tota L l All aspartate_am unknown 19 unknown U/L _39 unknown unknown inotransferas e_SGOT_serum All protein_tota unknown 7.6 unknown g/dL _36 unknown unknown l_serum All blood_glucos unknown 83 unknown mg/dL _3565 unknown unknown e All potassium_bl unknown 3.9 unknown meq/L _3483 unknown unknown ood All glucose_urin unknown NEGATIVE unknown _3369 unkno wn unknown e mg/dL All appearance_u unknown cloudy unknown _328 unknown unknown rine All leukocyte_es unknown NEGATIVE unknown _327 unkno wn unknown terase_urine_ by_dipstick All urobilinogen unknown 0.2 unknown _326 unknown unknown _urine_semiqu (NORMAL) antitative_di pstick_ All specific_gra unknown 1.025 unknown _325 unknown unknown vity_urine All pH_urine_sem unknown 6.5 unknown _324 unknown unknown iquantitative All nitrite_urin unknown NEGATIVE unknown _323 unkno wn unknown e_semiquantit ative All ketones_urin unknown NEGATIVE unknown _322 unkno wn unknown e_by_test_str ip All bilirubin_ur unknown NEGATIVE unknown _319 unkno wn unknown ine All mean_corpusc unknown 91.9 unknown fL _315 unknown unknown ular_volume_R BC All Urea_nitroge unknown 11 unknown mg/dL _3094-0 unknow n unknown n_Mass_volume _in_Serum_or_ Plasma All globulin_ser unknown 3.3 unknown _3059 unknown unknown um All alkaline_pho unknown 64 unknown U/L _3 unknown unknown sphatase_seru m All Sodium_Moles unknown 138 unknown mmol/ _2951-2 unknow n unknown _volume_in_Se L rum_or_Plasma All Protein_Mass unknown 7.6 unknown g/dL _2885-2 unknow n unknown _volume_in_Se rum_or_Plasma All eosinophil_c unknown 0.3 10 unknown _285 unknown unknown ount_blood 3/UL All anion_gap_se unknown 10.0 unknown _279 unknown unknown rum All mean_platele unknown 9.7 unknown fL _2784 unknown unknown t_volume All urine_color unknown YELLOW unknown _2751 unknown unknown All basophil_cou unknown 0.1 10 unknown _2427 unknown unknown nt_blood 3/UL All monocyte_cou unknown 0.7 10 unknown _2422 unknown unknown nt_blood 3/UL All lymphocyte_c unknown 2.4 10 unknown _2420 unknown unknown ount_blood 3/UL All neutrophil_c unknown 5.1 10 unknown _2418 unknown unknown ount_blood 3/UL All Glucose_Mass unknown NEGATIVE unknown _2350-7 unkn own unknown _volume_in_Ur mg/dL ine All Glucose_Mass unknown 83 unknown mg/dL _2345-7 unknow n unknown _volume_in_Se rum_or_Plasma All Globulin_Mas unknown 3.3 unknown _2336-6 unknow n unknown s_volume_in_S arlyn All Creatinine_M unknown 0.6 unknown mg/dL _2160-0 unknow n unknown ass_volume_in _Serum_or_Pla sma All Chloride_Mol unknown 103 unknown mmol/ _2075-0 unknow n unknown es_volume_in_ L Serum_or_Plas ma All carbon_dioxi unknown 25 unknown mmol/ _2028-9 unknow n unknown de_serum_tota L l All Calcium_Mole unknown 9.8 unknown mg/dL _2000-8 unknow n unknown s_volume_in_S erum_or_Plasm a All albumin_seru unknown 4.3 unknown g/dL _2 unknown unknown m All Bilirubin.to unknown 0.8 unknown mg/dL _1975-2 unknow n unknown tal_Mass_volu me_in_Serum_o r_Plasma All Aspartate_am unknown 19 unknown U/L _1920-8 unknow n unknown inotransferas e_Enzymatic_a ctivity_volum e_in_Serum_or _Plasma All Anion_gap_4_ unknown 10.0 unknown _1863-0 unknow n unknown in_Serum_or_P lasma All creatinine_s unknown 0.6 unknown mg/dL _18 unknown unknown arlyn All Alkaline_pho unknown 64 unknown U/L _1783-0 unknow n unknown sphatase_Enzy matic_activit y_volume_in_B lood All Albumin_Glob unknown 1.3 unknown _1759-0 unknow n unknown ulin_Mass_Rat io_in_Serum_o r_Plasma All Albumin_Pres unknown trace unknown _1753-3 unknow n unknown ence_in_Urine All Albumin_Mass unknown 4.3 unknown g/dL _1751-7 unknow n unknown _volume_in_Se rum_or_Plasma All Alanine_amin unknown 17 unknown U/L _1742-6 unknow n unknown otransferase_ Enzymatic_act ivity_volume_ in_Serum_or_P lasma All mean_corpusc unknown 31.7 unknown g/dL _17029 unknown unknown ular_hemoglob in_concentrat ion_rbc All RBC_urine_di unknown non-hemol unknown _1700005 un known unknown pstick yzed moderate All sodium_serum unknown 138 unknown mmol/ _159 unknown unknown L All albumin_glob unknown 1.3 unknown _146 unknown unknown ulin_ratio_se rum All Erythrocytes unknown non-hemol unknown _13945-1 un known unknown _area_in_Urin yzed e_sediment_by moderate _Microscopy_h igh_power_fie ld All chloride_ser unknown 103 unknown mmol/ _13 unknown unknown um L All glucose_urin unknown negative unknown _123 unkno wn unknown e_semiquantit ative All protein_urin unknown trace unknown _118 unknown unknown e_semiquantit ative_dipstic k_ All calcium_seru unknown 9.8 unknown mg/dL _11 unknown unknown m All mean_corpusc unknown 29.2 unknown pg _1031 unknown unknown ular_hemoglob in_RBC All red_blood_ce unknown 12.8 unknown % _1030 unknown unknown ll_distributi on_width All WBC_urine_on unknown 0-3 /HPF unknown _1016 unkno wn unknown _microscopy All DIPSTICK_URI unknown 6019 unknown _101400 unknow n unknown NE_STRIP_LOT_ NUMBER All T unknown 8.4 X10 unknown WBC unknown unk nown 3/UL All WBC_URINE unknown 0-3 /HPF unknown UWBC unknown unknown All UROBILINOGEN unknown 0.2 unknown UUROBIL unknow n unknown _URINE (NORMAL) All SPECIFIC_GRA unknown 1.025 unknown USG unknown unknown VITY_URINE All T unknown 0-3 /HPF unknown UR_WBC unknown un known All T unknown 0.2 unknown UR_URO unknown unkn own (NORMAL) All T unknown 1.025 unknown UR_SG unknown unkn own All T unknown 6.5 unknown UR_PH unknown unkn own All T unknown NEGATIVE unknown UR_NIT unknown un known All T unknown NEGATIVE unknown UR_LEU_E unknown unknown STERASE All T unknown NEGATIVE unknown UR_KETO_ unknown unknown UA_ All T unknown NEGATIVE unknown UR_GLU unknown un known mg/dL All T unknown YELLOW unknown UR_COLOR unknown un known All T unknown HAZY unknown UR_CLARI unknown un known TY All T unknown NEGATIVE unknown UR_BILI unknown u nknown All PH_URINE unknown 6.5 unknown UPH unknown un known All NITRITE_URIN unknown NEGATIVE unknown UNITRITE unk nown unknown E All LEUKOCYTE_ES unknown NEGATIVE unknown ULEUK unkno wn unknown TERASE_URINE All KETONES_URIN unknown NEGATIVE unknown UKET unkno wn unknown E_UA_ All GLUCOSE_URIN unknown NEGATIVE unknown UGLUC unkno wn unknown E_UA_ mg/dL All COLOR_URINE unknown YELLOW unknown UCOL unknown unknown All CLARITY_URIN unknown HAZY unknown UCLAR unknown unknown E All BILIRUBIN_UR unknown NEGATIVE unknown UBIL unkno wn unknown INE All T unknown 0.8 unknown mg/dL TOTAL_BI unknown un known LI All T unknown 12.8 unknown % RDW unknown unkn own All T unknown 4.56 10 unknown RBC unknown unk nown 6/UL All T unknown 7.6 unknown g/dL PRO_TOTA unknown un known L All T unknown 284 10 unknown PLT unknown unkn own 3/UL All NEUTROPHILS_ unknown 5.1 10 unknown NE_ unknown unknown AUTO_ 3/UL All T unknown 5.1 10 unknown NEUT_AUT unknown un known 3/UL O_ All T unknown 138 unknown mmol/ NA unknown unkn own L All T unknown 9.7 unknown fL MPV unknown unkn own All MONOCYTES_AU unknown 0.7 10 unknown MO_ unknown unknown TO_ 3/UL All T unknown 0.7 10 unknown MONO_AUT unknown un known 3/UL O_ All T unknown 91.9 unknown fL MCV unknown unkn own All T unknown 31.7 unknown g/dL MCHC unknown unkn own All T unknown 29.2 unknown pg MCH unknown unkn own All LYMPHOCYTES_ unknown 2.4 10 unknown LY_ unknown unknown AUTO_ 3/UL All T unknown 2.4 10 unknown LYMPH_AU unknown un known 3/UL TO_ All T unknown 3.9 unknown meq/L K unknown unkn own All T unknown 13.3 unknown g/dL HGB unknown unkn own All T unknown 41.9 unknown % HCT unknown unkn own All T unknown 83 unknown mg/dL GLU unknown unkn own All T unknown 3.3 unknown GLOB unknown unkn own All T unknown 127 unknown mL/mi GFR_-_MD unknown un known n RD All GFR_-_MDRD unknown 127 unknown mL/mi GFR unknown unknown n All T unknown 10.0 unknown GAP unknown unkn own All T unknown 2 unknown mm/h ESR unknown unkn own All EOSINOPHILS_ unknown 0.3 10 unknown EO_ unknown unknown AUTO_ 3/UL All T unknown 0.3 10 unknown EOS_AUTO unknown un known 3/UL _ All T unknown 0.6 unknown mg/dL CREAT unknown unkn own All T unknown 25 unknown mmol/ CO2 unknown unkn own L All T unknown 103 unknown mmol/ CL unknown unkn own L All T unknown 9.8 unknown mg/dL CA unknown unkn own All T unknown 11 unknown mg/dL BUN unknown unkn own All BILIRUBIN_TO unknown 0.8 unknown mg/dL BILIT unknown unknown ISRAEL All BASOPHILS_AU unknown 0.1 10 unknown BA_ unknown unknown TO_ 3/UL All T unknown 0.1 10 unknown BASO_AUT unknown un known 3/UL O_ All T unknown 1.3 unknown A_G_RATI unknown un known O All T unknown 19 unknown U/L AST unknown unkn own All T unknown 17 unknown U/L ALT_SGPT unknown un known _ All ALT_ALANINE_ unknown 17 unknown U/L ALT unknown unknown AMINOTRANSFER ASE All ALKALINE_PHO unknown 64 unknown U/L ALP unknown unknown SPHATASE All T unknown 64 unknown U/L ALK_PHOS unknown un known All T unknown 4.3 unknown g/dL ALB unknown unkn own All ALBUMIN_GLOB unknown 1.3 unknown AGRATIO unknow n unknown ULIN_RATIO All urea_nitroge unknown 11 unknown mg/dL _9 unknown unknown n_blood All Erythrocytes unknown 4.56 10 unknown _789-8 unknow n unknown _volume_in_Bl 6/UL ood_by_Automa ted_count All Erythrocyte_ unknown 12.8 unknown % _788-0 unknown unknown distribution_ width_Ratio_b y_Automated_c ount All MCV_Entitic_ unknown 91.9 unknown fL _787-2 unknown unknown volume_by_Aut omated_count All MCH_Entitic_ unknown 29.2 unknown pg _785-6 unknown unknown mass_by_Autom ated_count All Platelets_vo unknown 284 10 unknown _777-3 unknown unknown lume_in_Blood 3/UL _by_Automated _count All Platelet_mea unknown 9.7 unknown fL _776-5 unknown unknown n_volume_Enti tic_volume_in _Blood_by_Ree s-[place] All neutrophil_c unknown 5.1 10 unknown _752-6 unknown unknown ount_blood 3/UL All monocyte_cou unknown 0.7 10 unknown _743-5 unknown unknown nt_blood 3/UL All lymphocyte_c unknown 2.4 10 unknown _732-8 unknown unknown ount_blood 3/UL All Hemoglobin_M unknown 13.3 unknown g/dL _718-7 unknown unknown ass_volume_in _Blood All eosinophil_c unknown 0.3 10 unknown _712-0 unknown unknown ount_blood 3/UL All Basophils_vo unknown 0.1 10 unknown _705-4 unknown unknown lume_in_Blood 3/UL _by_Manual_co unt All leukocyte_co unknown 8.4 X10 unknown _68 unknow n unknown unt_blood 3/UL All erythrocyte_ unknown 4.56 10 unknown _67 unknow n unknown RBC_count 6/UL All Leukocytes_v unknown 8.4 X10 unknown _6690-2 unkno wn unknown olume_in_Bloo 3/UL d_by_Automate d_count All Glomerular_F unknown 127 unknown mL/mi _66455 unknown unknown iltration_rat n e All platelet_cou unknown 284 10 unknown _66 unknown unknown nt 3/UL All hemoglobin_b unknown 13.3 unknown g/dL _65 unknown unknown lood All hematocrit_b unknown 41.9 unknown % _64 unknown unknown lood All erythrocyte_ unknown 2 unknown mm/h _63 unknown unknown sedimentation _rate All potassium_bl unknown 3.9 unknown meq/L _6298-4 unknow n unknown ood All WBC_urine_on unknown 0-3 /HPF unknown _5821-4 unkn own unknown _microscopy All clarity_urin unknown HAZY unknown _5589 unknown unknown e_point All pH_study_of_ unknown 6.5 unknown _51641 unknown unknown acidity All Glomerular_fi unknown 127 unknown mL/mi _48642-3 unkno wn unknown ltration_rate n _1.73_sq_M.pr edicted_among _non-blacks_V olume_Rate_Ar ea_in_Serum_P lasma_or_Bloo d_by_Creatini ne-based_form ula_MDRD_ All Hematocrit_V unknown 41.9 unknown % _4544-3 unknow n unknown olume_Fractio n_of_Blood_by _Automated_co unt All Erythrocyte_ unknown 2 unknown mm/h _4537-7 unknow n unknown sedimentation _rate_by_[place]_method All bilirubin_se unknown 0.8 unknown mg/dL _43 unknown unknown rum_total All alanine_amin unknown 17 unknown U/L _40 unknown unknown otransferase_ SGPT_serum All carbon_dioxi unknown 25 unknown mmol/ _3962 unknown unknown de_serum_tota L l All aspartate_am unknown 19 unknown U/L _39 unknown unknown inotransferas e_SGOT_serum All protein_tota unknown 7.6 unknown g/dL _36 unknown unknown l_serum All blood_glucos unknown 83 unknown mg/dL _3565 unknown unknown e All potassium_bl unknown 3.9 unknown meq/L _3483 unknown unknown ood All glucose_urin unknown NEGATIVE unknown _3369 unkno wn unknown e mg/dL All mean_corpusc unknown 91.9 unknown fL _315 unknown unknown ular_volume_R BC All Urea_nitroge unknown 11 unknown mg/dL _3094-0 unknow n unknown n_Mass_volume _in_Serum_or_ Plasma All globulin_ser unknown 3.3 unknown _3059 unknown unknown um All alkaline_pho unknown 64 unknown U/L _3 unknown unknown sphatase_seru m All Sodium_Moles unknown 138 unknown mmol/ _2951-2 unknow n unknown _volume_in_Se L rum_or_Plasma All Protein_Mass unknown 7.6 unknown g/dL _2885-2 unknow n unknown _volume_in_Se rum_or_Plasma All eosinophil_c unknown 0.3 10 unknown _285 unknown unknown ount_blood 3/UL All anion_gap_se unknown 10.0 unknown _279 unknown unknown rum All mean_platele unknown 9.7 unknown fL _2784 unknown unknown t_volume All basophil_cou unknown 0.1 10 unknown _2427 unknown unknown nt_blood 3/UL All monocyte_cou unknown 0.7 10 unknown _2422 unknown unknown nt_blood 3/UL All lymphocyte_c unknown 2.4 10 unknown _2420 unknown unknown ount_blood 3/UL All neutrophil_c unknown 5.1 10 unknown _2418 unknown unknown ount_blood 3/UL All Glucose_Mass unknown NEGATIVE unknown _2350-7 unkn own unknown _volume_in_Ur mg/dL ine All Glucose_Mass unknown 83 unknown mg/dL _2345-7 unknow n unknown _volume_in_Se rum_or_Plasma All Globulin_Mas unknown 3.3 unknown _2336-6 unknow n unknown s_volume_in_S arlyn All Creatinine_M unknown 0.6 unknown mg/dL _2160-0 unknow n unknown ass_volume_in _Serum_or_Pla sma All Chloride_Mol unknown 103 unknown mmol/ _2075-0 unknow n unknown es_volume_in_ L Serum_or_Plas ma All carbon_dioxi unknown 25 unknown mmol/ _2028-9 unknow n unknown de_serum_tota L l All Calcium_Mole unknown 9.8 unknown mg/dL _1999-8 unknow n unknown s_volume_in_S erum_or_Plasm a All albumin_seru unknown 4.3 unknown g/dL _2 unknown unknown m All Bilirubin.to unknown 0.8 unknown mg/dL _1974- unknow n unknown tal_Mass_volu me_in_Serum_o r_Plasma All Aspartate_am unknown 19 unknown U/L _1920-8 unknow n unknown inotransferas e_Enzymatic_a ctivity_volum e_in_Serum_or _Plasma All Anion_gap_4_ unknown 10.0 unknown _1863-0 unknow n unknown in_Serum_or_P lasma All creatinine_s unknown 0.6 unknown mg/dL _18 unknown unknown arlyn All Alkaline_pho unknown 64 unknown U/L _1783-0 unknow n unknown sphatase_Enzy matic_activit y_volume_in_B lood All Albumin_Glob unknown 1.3 unknown _1759-0 unknow n unknown ulin_Mass_Rat io_in_Serum_o r_Plasma All Albumin_Mass unknown 4.3 unknown g/dL _1751-7 unknow n unknown _volume_in_Se rum_or_Plasma All Alanine_amin unknown 17 unknown U/L _1742-6 unknow n unknown otransferase_ Enzymatic_act ivity_volume_ in_Serum_or_P lasma All mean_corpusc unknown 31.7 unknown g/dL _17029 unknown unknown ular_hemoglob in_concentrat ion_rbc All sodium_serum unknown 138 unknown mmol/ _159 unknown unknown L All albumin_glob unknown 1.3 unknown _146 unknown unknown ulin_ratio_se rum All chloride_ser unknown 103 unknown mmol/ _13 unknown unknown um L All calcium_seru unknown 9.8 unknown mg/dL _11 unknown unknown m All mean_corpusc unknown 29.2 unknown pg _1031 unknown unknown ular_hemoglob in_RBC All red_blood_ce unknown 12.8 unknown % _1030 unknown unknown ll_distributi on_width All WBC_urine_on unknown 0-3 /HPF unknown _1016 unkno wn unknown _microscopy All T unknown 8.4 X10 unknown WBC unknown unk nown 3/UL All WBC_URINE unknown 0-3 /HPF unknown UWBC unknown unknown All T unknown 0-3 /HPF unknown UR_WBC unknown un known All T unknown 6.5 unknown UR_PH unknown unkn own All T unknown NEGATIVE unknown UR_GLU unknown un known mg/dL All T unknown HAZY unknown UR_CLARI unknown un known TY All PH_URINE unknown 6.5 unknown UPH unknown un known All GLUCOSE_URIN unknown NEGATIVE unknown UGLUC unkno wn unknown E_UA_ mg/dL All CLARITY_URIN unknown HAZY unknown UCLAR unknown unknown E All T unknown 0.8 unknown mg/dL TOTAL_BI unknown un known LI All T unknown 12.8 unknown % RDW unknown unkn own All T unknown 4.56 10 unknown RBC unknown unk nown 6/UL All T unknown 7.6 unknown g/dL PRO_TOTA unknown un known L All T unknown 284 10 unknown PLT unknown unkn own 3/UL All NEUTROPHILS_ unknown 5.1 10 unknown NE_ unknown unknown AUTO_ 3/UL All T unknown 5.1 10 unknown NEUT_AUT unknown un known 3/UL O_ All T unknown 138 unknown mmol/ NA unknown unkn own L All T unknown 9.7 unknown fL MPV unknown unkn own All MONOCYTES_AU unknown 0.7 10 unknown MO_ unknown unknown TO_ 3/UL All T unknown 0.7 10 unknown MONO_AUT unknown un known 3/UL O_ All T unknown 91.9 unknown fL MCV unknown unkn own All T unknown 31.7 unknown g/dL MCHC unknown unkn own All T unknown 29.2 unknown pg MCH unknown unkn own All LYMPHOCYTES_ unknown 2.4 10 unknown LY_ unknown unknown AUTO_ 3/UL All T unknown 2.4 10 unknown LYMPH_AU unknown un known 3/UL TO_ All T unknown 3.9 unknown meq/L K unknown unkn own All T unknown 13.3 unknown g/dL HGB unknown unkn own All T unknown 41.9 unknown % HCT unknown unkn own All T unknown 83 unknown mg/dL GLU unknown unkn own All T unknown 3.3 unknown GLOB unknown unkn own All T unknown 127 unknown mL/mi GFR_-_MD unknown un known n RD All GFR_-_MDRD unknown 127 unknown mL/mi GFR unknown unknown n All T unknown 10.0 unknown GAP unknown unkn own All T unknown 2 unknown mm/h ESR unknown unkn own All EOSINOPHILS_ unknown 0.3 10 unknown EO_ unknown unknown AUTO_ 3/UL All T unknown 0.3 10 unknown EOS_AUTO unknown un known 3/UL _ All T unknown 0.6 unknown mg/dL CREAT unknown unkn own All T unknown 25 unknown mmol/ CO2 unknown unkn own L All T unknown 103 unknown mmol/ CL unknown unkn own L All T unknown 9.8 unknown mg/dL CA unknown unkn own All T unknown 11 unknown mg/dL BUN unknown unkn own All BILIRUBIN_TO unknown 0.8 unknown mg/dL BILIT unknown unknown ISRAEL All BASOPHILS_AU unknown 0.1 10 unknown BA_ unknown unknown TO_ 3/UL All T unknown 0.1 10 unknown BASO_AUT unknown un known 3/UL O_ All T unknown 1.3 unknown A_G_RATI unknown un known O All T unknown 19 unknown U/L AST unknown unkn own All T unknown 17 unknown U/L ALT_SGPT unknown un known _ All ALT_ALANINE_ unknown 17 unknown U/L ALT unknown unknown AMINOTRANSFER ASE All ALKALINE_PHO unknown 64 unknown U/L ALP unknown unknown SPHATASE All T unknown 64 unknown U/L ALK_PHOS unknown un known All T unknown 4.3 unknown g/dL ALB unknown unkn own All ALBUMIN_GLOB unknown 1.3 unknown AGRATIO unknow n unknown ULIN_RATIO All urea_nitroge unknown 11 unknown mg/dL _9 unknown unknown n_blood All Erythrocytes unknown 4.56 10 unknown _789-8 unknow n unknown _volume_in_Bl 6/UL ood_by_Automa ted_count All Erythrocyte_ unknown 12.8 unknown % _788-0 unknown unknown distribution_ width_Ratio_b y_Automated_c ount All MCV_Entitic_ unknown 91.9 unknown fL _787-2 unknown unknown volume_by_Aut omated_count All MCH_Entitic_ unknown 29.2 unknown pg _785-6 unknown unknown mass_by_Autom ated_count All Platelets_vo unknown 284 10 unknown _777-3 unknown unknown lume_in_Blood 3/UL _by_Automated _count All Platelet_mea unknown 9.7 unknown fL _776-5 unknown unknown n_volume_Enti tic_volume_in _Blood_by_Ree s-[place] All neutrophil_c unknown 5.1 10 unknown _752-6 unknown unknown ount_blood 3/UL All monocyte_cou unknown 0.7 10 unknown _743-5 unknown unknown nt_blood 3/UL All lymphocyte_c unknown 2.4 10 unknown _732-8 unknown unknown ount_blood 3/UL All Hemoglobin_M unknown 13.3 unknown g/dL _718-7 unknown unknown ass_volume_in _Blood All eosinophil_c unknown 0.3 10 unknown _712-0 unknown unknown ount_blood 3/UL All Basophils_vo unknown 0.1 10 unknown _705-4 unknown unknown lume_in_Blood 3/UL _by_Manual_co unt All leukocyte_co unknown 8.4 X10 unknown _68 unknow n unknown unt_blood 3/UL All erythrocyte_ unknown 4.56 10 unknown _67 unknow n unknown RBC_count 6/UL All Leukocytes_v unknown 8.4 X10 unknown _6690-2 unkno wn unknown olume_in_Bloo 3/UL d_by_Automate d_count All Glomerular_F unknown 127 unknown mL/mi _66455 unknown unknown iltration_rat n e All platelet_cou unknown 284 10 unknown _66 unknown unknown nt 3/UL All hemoglobin_b unknown 13.3 unknown g/dL _65 unknown unknown lood All hematocrit_b unknown 41.9 unknown % _64 unknown unknown lood All erythrocyte_ unknown 2 unknown mm/h _63 unknown unknown sedimentation _rate All potassium_bl unknown 3.9 unknown meq/L _6298-4 unknow n unknown ood All WBC_urine_on unknown 0-3 /HPF unknown _5821-4 unkn own unknown _microscopy All Urobilinogen unknown 0.2 unknown _5818-0 unknow n unknown _Presence_in_ Urine_by_Test _strip All Urobilinogen unknown 0.2 unknown _5818-0 unknow n unknown _Presence_in_ (NORMAL) Urine_by_Test _strip All Specific_gra unknown 1.025 unknown _5811-5 unknow n unknown vity_of_Urine _by_Test_stri p All Specific_gra unknown 1.015 unknown _5811-5 unknow n unknown vity_of_Urine _by_Test_stri p All pH_of_Urine_ unknown 6.5 unknown _5803-2 unknow n unknown by_Test_strip All Nitrite_Pres unknown negative unknown _5802-4 unkn own unknown ence_in_Urine _by_Test_stri p All Nitrite_Pres unknown NEGATIVE unknown _5802-4 unkn own unknown ence_in_Urine _by_Test_stri p All Leukocyte_es unknown negative unknown _5799-2 unkn own unknown terase_Presen ce_in_Urine_b y_Test_strip All Leukocyte_es unknown NEGATIVE unknown _5799-2 unkn own unknown terase_Presen ce_in_Urine_b y_Test_strip All Ketones_Mass unknown trace (5) unknown _5797-6 unk nown unknown _volume_in_Ur ine_by_Test_s trip All Ketones_Mass unknown NEGATIVE unknown _5797-6 unkn own unknown _volume_in_Ur ine_by_Test_s trip All Glucose_Mass unknown negative unknown _5792-7 unkn own unknown _volume_in_Ur ine_by_Test_s trip All Color_of_Uri unknown straw unknown _5778-6 unknow n unknown ne All Color_of_Uri unknown YELLOW unknown _5778-6 unknow n unknown ne All Bilirubin.to unknown negative unknown _5770-3 unkn own unknown tal_Presence_ in_Urine_by_T est_strip All Bilirubin.to unknown NEGATIVE unknown _5770-3 unkn own unknown tal_Presence_ in_Urine_by_T est_strip All Appearance_o unknown cloudy unknown _5767-9 unknow n unknown f_Urine All clarity_urin unknown HAZY unknown _5589 unknown unknown e_point All pH_study_of_ unknown 6.5 unknown _51641 unknown unknown acidity All Glomerular_fi unknown 127 unknown mL/mi _48642-3 unkno wn unknown ltration_rate n _1.73_sq_M.pr edicted_among _non-blacks_V olume_Rate_Ar ea_in_Serum_P lasma_or_Bloo d_by_Creatini ne-based_form ula_MDRD_ All urinalysis_r unknown Clean unknown _47 unknown unknown outine Catch All Hematocrit_V unknown 41.9 unknown % _4544-3 unknow n unknown olume_Fractio n_of_Blood_by _Automated_co unt All Erythrocyte_ unknown 2 unknown mm/h _4537-7 unknow n unknown sedimentation _rate_by_[place]_method All bilirubin_se unknown 0.8 unknown mg/dL _43 unknown unknown rum_total All alanine_amin unknown 17 unknown U/L _40 unknown unknown otransferase_ SGPT_serum All carbon_dioxi unknown 25 unknown mmol/ _3962 unknown unknown de_serum_tota L l All aspartate_am unknown 19 unknown U/L _39 unknown unknown inotransferas e_SGOT_serum All protein_tota unknown 7.6 unknown g/dL _36 unknown unknown l_serum All blood_glucos unknown 83 unknown mg/dL _3565 unknown unknown e All potassium_bl unknown 3.9 unknown meq/L _3483 unknown unknown ood All glucose_urin unknown NEGATIVE unknown _3369 unkno wn unknown e mg/dL All appearance_u unknown cloudy unknown _328 unknown unknown rine All leukocyte_es unknown negative unknown _327 unkno wn unknown terase_urine_ by_dipstick All leukocyte_es unknown NEGATIVE unknown _327 unkno wn unknown terase_urine_ by_dipstick All urobilinogen unknown 0.2 unknown _326 unknown unknown _urine_semiqu antitative_di pstick_ All urobilinogen unknown 0.2 unknown _326 unknown unknown _urine_semiqu (NORMAL) antitative_di pstick_ All specific_gra unknown 1.025 unknown _325 unknown unknown vity_urine All specific_gra unknown 1.015 unknown _325 unknown unknown vity_urine All pH_urine_sem unknown 6.5 unknown _324 unknown unknown iquantitative All nitrite_urin unknown negative unknown _323 unkno wn unknown e_semiquantit ative All nitrite_urin unknown NEGATIVE unknown _323 unkno wn unknown e_semiquantit ative All ketones_urin unknown trace (5) unknown _322 unkn own unknown e_by_test_str ip All ketones_urin unknown NEGATIVE unknown _322 unkno wn unknown e_by_test_str ip All bilirubin_ur unknown negative unknown _319 unkno wn unknown ine All bilirubin_ur unknown NEGATIVE unknown _319 unkno wn unknown ine All mean_corpusc unknown 91.9 unknown fL _315 unknown unknown ular_volume_R BC All Urea_nitroge unknown 11 unknown mg/dL _3094-0 unknow n unknown n_Mass_volume _in_Serum_or_ Plasma All globulin_ser unknown 3.3 unknown _3059 unknown unknown um All alkaline_pho unknown 64 unknown U/L _3 unknown unknown sphatase_seru m All Sodium_Moles unknown 138 unknown mmol/ _2951-2 unknow n unknown _volume_in_Se L rum_or_Plasma All Protein_Mass unknown 7.6 unknown g/dL _2885-2 unknow n unknown _volume_in_Se rum_or_Plasma All eosinophil_c unknown 0.3 10 unknown _285 unknown unknown ount_blood 3/UL All anion_gap_se unknown 10.0 unknown _279 unknown unknown rum All mean_platele unknown 9.7 unknown fL _2784 unknown unknown t_volume All urine_color unknown straw unknown _2751 unknown unknown All urine_color unknown YELLOW unknown _2751 unknown unknown All basophil_cou unknown 0.1 10 unknown _2427 unknown unknown nt_blood 3/UL All monocyte_cou unknown 0.7 10 unknown _2422 unknown unknown nt_blood 3/UL All lymphocyte_c unknown 2.4 10 unknown _2420 unknown unknown ount_blood 3/UL All neutrophil_c unknown 5.1 10 unknown _2418 unknown unknown ount_blood 3/UL All Glucose_Mass unknown NEGATIVE unknown _2350-7 unkn own unknown _volume_in_Ur mg/dL ine All Glucose_Mass unknown 83 unknown mg/dL _2345-7 unknow n unknown _volume_in_Se rum_or_Plasma All Globulin_Mas unknown 3.3 unknown _2336-6 unknow n unknown s_volume_in_S arlyn All Creatinine_M unknown 0.6 unknown mg/dL _2160-0 unknow n unknown ass_volume_in _Serum_or_Pla sma All Chloride_Mol unknown 103 unknown mmol/ _2075-0 unknow n unknown es_volume_in_ L Serum_or_Plas ma All carbon_dioxi unknown 25 unknown mmol/ _2028-9 unknow n unknown de_serum_tota L l All Calcium_Mole unknown 9.8 unknown mg/dL _2000-8 unknow n unknown s_volume_in_S erum_or_Plasm a All albumin_seru unknown 4.3 unknown g/dL _2 unknown unknown m All Bilirubin.to unknown 0.8 unknown mg/dL _1974- unknow n unknown tal_Mass_volu me_in_Serum_o r_Plasma All Aspartate_am unknown 19 unknown U/L _1920-8 unknow n unknown inotransferas e_Enzymatic_a ctivity_volum e_in_Serum_or _Plasma All Anion_gap_4_ unknown 10.0 unknown _1863-0 unknow n unknown in_Serum_or_P lasma All creatinine_s unknown 0.6 unknown mg/dL _18 unknown unknown arlyn All Alkaline_pho unknown 64 unknown U/L _1783-0 unknow n unknown sphatase_Enzy matic_activit y_volume_in_B lood All Albumin_Glob unknown 1.3 unknown _1759-0 unknow n unknown ulin_Mass_Rat io_in_Serum_o r_Plasma All Albumin_Pres unknown trace unknown _1753-3 unknow n unknown ence_in_Urine All Albumin_Mass unknown 4.3 unknown g/dL _1751-7 unknow n unknown _volume_in_Se rum_or_Plasma All Alanine_amin unknown 17 unknown U/L _1742-6 unknow n unknown otransferase_ Enzymatic_act ivity_volume_ in_Serum_or_P lasma All mean_corpusc unknown 31.7 unknown g/dL _17029 unknown unknown ular_hemoglob in_concentrat ion_rbc All RBC_urine_di unknown non-hemol unknown _1700005 un known unknown pstick yzed moderate All sodium_serum unknown 138 unknown mmol/ _159 unknown unknown L All albumin_glob unknown 1.3 unknown _146 unknown unknown ulin_ratio_se rum All Erythrocytes unknown non-hemol unknown _13945-1 un known unknown _area_in_Urin yzed e_sediment_by moderate _Microscopy_h igh_power_fie ld All chloride_ser unknown 103 unknown mmol/ _13 unknown unknown um L All glucose_urin unknown negative unknown _123 unkno wn unknown e_semiquantit ative All protein_urin unknown trace unknown _118 unknown unknown e_semiquantit ative_dipstic k_ All calcium_seru unknown 9.8 unknown mg/dL _11 unknown unknown m All mean_corpusc unknown 29.2 unknown pg _1031 unknown unknown ular_hemoglob in_RBC All red_blood_ce unknown 12.8 unknown % _1030 unknown unknown ll_distributi on_width All WBC_urine_on unknown 0-3 /HPF unknown _1016 unkno wn unknown _microscopy All DIPSTICK_URI unknown 6019 unknown _101400 unknow n unknown NE_STRIP_LOT_ NUMBER All T unknown 8.4 X10 unknown WBC unknown unk nown 3/UL All WBC_URINE unknown 0-3 /HPF unknown UWBC unknown unknown All UROBILINOGEN unknown 0.2 unknown UUROBIL unknow n unknown _URINE (NORMAL) All SPECIFIC_GRA unknown 1.025 unknown USG unknown unknown VITY_URINE All T unknown 0-3 /HPF unknown UR_WBC unknown un known All T unknown 0.2 unknown UR_URO unknown unkn own (NORMAL) All T unknown 1.025 unknown UR_SG unknown unkn own All T unknown 6.5 unknown UR_PH unknown unkn own All T unknown NEGATIVE unknown UR_NIT unknown un known All T unknown NEGATIVE unknown UR_LEU_E unknown unknown STERASE All T unknown NEGATIVE unknown UR_KETO_ unknown unknown UA_ All T unknown NEGATIVE unknown UR_GLU unknown un known mg/dL All T unknown YELLOW unknown UR_COLOR unknown un known All T unknown HAZY unknown UR_CLARI unknown un known TY All T unknown NEGATIVE unknown UR_BILI unknown u nknown All PH_URINE unknown 6.5 unknown UPH unknown un known All NITRITE_URIN unknown NEGATIVE unknown UNITRITE unk nown unknown E All LEUKOCYTE_ES unknown NEGATIVE unknown ULEUK unkno wn unknown TERASE_URINE All KETONES_URIN unknown NEGATIVE unknown UKET unkno wn unknown E_UA_ All GLUCOSE_URIN unknown NEGATIVE unknown UGLUC unkno wn unknown E_UA_ mg/dL All COLOR_URINE unknown YELLOW unknown UCOL unknown unknown All CLARITY_URIN unknown HAZY unknown UCLAR unknown unknown E All BILIRUBIN_UR unknown NEGATIVE unknown UBIL unkno wn unknown INE All T unknown 0.8 unknown mg/dL TOTAL_BI unknown un known LI All T unknown 12.8 unknown % RDW unknown unkn own All T unknown 4.56 10 unknown RBC unknown unk nown 6/UL All T unknown 7.6 unknown g/dL PRO_TOTA unknown un known L All T unknown 284 10 unknown PLT unknown unkn own 3/UL All NEUTROPHILS_ unknown 5.1 10 unknown NE_ unknown unknown AUTO_ 3/UL All T unknown 5.1 10 unknown NEUT_AUT unknown un known 3/UL O_ All T unknown 138 unknown mmol/ NA unknown unkn own L All T unknown 9.7 unknown fL MPV unknown unkn own All MONOCYTES_AU unknown 0.7 10 unknown MO_ unknown unknown TO_ 3/UL All T unknown 0.7 10 unknown MONO_AUT unknown un known 3/UL O_ All T unknown 91.9 unknown fL MCV unknown unkn own All T unknown 31.7 unknown g/dL MCHC unknown unkn own All T unknown 29.2 unknown pg MCH unknown unkn own All LYMPHOCYTES_ unknown 2.4 10 unknown LY_ unknown unknown AUTO_ 3/UL All T unknown 2.4 10 unknown LYMPH_AU unknown un known 3/UL TO_ All T unknown 3.9 unknown meq/L K unknown unkn own All T unknown 13.3 unknown g/dL HGB unknown unkn own All T unknown 41.9 unknown % HCT unknown unkn own All T unknown 83 unknown mg/dL GLU unknown unkn own All T unknown 3.3 unknown GLOB unknown unkn own All T unknown 127 unknown mL/mi GFR_-_MD unknown un known n RD All GFR_-_MDRD unknown 127 unknown mL/mi GFR unknown unknown n All T unknown 10.0 unknown GAP unknown unkn own All T unknown 2 unknown mm/h ESR unknown unkn own All EOSINOPHILS_ unknown 0.3 10 unknown EO_ unknown unknown AUTO_ 3/UL All T unknown 0.3 10 unknown EOS_AUTO unknown un known 3/UL _ All T unknown 0.6 unknown mg/dL CREAT unknown unkn own All T unknown 25 unknown mmol/ CO2 unknown unkn own L All T unknown 103 unknown mmol/ CL unknown unkn own L All T unknown 9.8 unknown mg/dL CA unknown unkn own All T unknown 11 unknown mg/dL BUN unknown unkn own All BILIRUBIN_TO unknown 0.8 unknown mg/dL BILIT unknown unknown ISRA[place] All BASOPHILS_AU unknown 0.1 10 unknown BA_ unknown unknown TO_ 3/UL All T unknown 0.1 10 unknown BASO_AUT unknown un known 3/UL O_ All T unknown 1.3 unknown A_G_RATI unknown un known O All T unknown 19 unknown U/L AST unknown unkn own All T unknown 17 unknown U/L ALT_SGPT unknown un known _ All ALT_ALANINE_ unknown 17 unknown U/L ALT unknown unknown AMINOTRANSFER ASE All ALKALINE_PHO unknown 64 unknown U/L ALP unknown unknown SPHATASE All T unknown 64 unknown U/L ALK_PHOS unknown un known All T unknown 4.3 unknown g/dL ALB unknown unkn own All ALBUMIN_GLOB unknown 1.3 unknown AGRATIO unknow n unknown ULIN_RATIO V[employer] date measurement value source [id number] weight_standard 161.8 lb [id number] weight_metric 73.39 kg [id number] temperature_standard 97.6 F [id number] temperature_standard 97.52 F [id number] temperature_metric 36.44 C [id number] temperature_metric 36.4 C [id number] respiration_rate 16 /min [id number] height_standard 63 in [id number] height_metric 160.02 cm [id number] heart_rate 67 /min 10738231 BP_systolic 116 mm[Hg] 54611256 BP_diastolic 76 mm[Hg] [id number] BMI 28.77 kg/m2 12159117 temperature_standard 97.52 F 61428783 temperature_metric 36.4 C 46954047 weight_standard 161.8 lb 50189931 weight_metric 73.39 kg 58834839 temperature_standard 97.6 F 06905924 temperature_standard 97.52 F 91298219 temperature_metric 36.44 C 48488835 temperature_metric 36.4 C 87513962 respiration_rate 16 /min 73823543 height_standard 63 in [id number] height_metric 160.02 cm 96410613 heart_rate 67 /min 32043007 BP_systolic 116 mm[Hg] 29422868 BP_diastolic 76 mm[Hg] 61769322 BMI 28.77 kg/m2 65813439 weight_standard 65.77 lb 96338349 weight_metric 29.83 kg 32361876 temperature_standard 98 F 20210306 temperature_metric 36.67 C 20210306 respiration_rate 18 /min 20210306 height_standard 61 in 20210306 height_metric 154.94 cm 36993181 heart_rate 85 /min 20210306 BP_systolic 132 mm[Hg] 95883248 BP_diastolic 75 mm[Hg] 20210306 BMI 27.3 kg/m2 20210318 weight_standard 164.4 lb 20210318 weight_metric 74.57 kg 20210318 temperature_standard 97.4 F 20210318 temperature_metric 36.33 C 20210318 respiration_rate 12 /min 20210318 height_standard 63 in 20210318 height_metric 160.02 cm 20210318 heart_rate 64 /min 20210318 BP_systolic 126 mm[Hg] 20210318 BP_diastolic 82 mm[Hg] 20210318 BMI 29.23 kg/m2
--- OUTSIDE RECORDS SUMMARY | 2021-03-31 00:27 | EXTERNAL MEDICAL SUMMARY RPT | Continuity of Care Document ---
:2000 Demographics Phone Unavailable Preferred Language Faroese Marital Status Unknown Protestant Affiliation Unknown Race Unknown Ethnic Group Unknown Author Organization [place] Address [address] [id number] Phone Care Team Providers Name Role Phone PA-C Unavailable Unavailable Utility Specialist Unavailable Unavailable RN Unavailable Unavailable Lanker Unavailable Unavailable Medications date description facility [id number] [facility] All [id number] [facility] All 20210307 Fluconazole 150 MG Oral Tablet [facility] [id number] [facility] All [id number] [facility] All 21892394 [facility] All 43872944 [facility] All 18288745 [facility] All 65050697 [facility] All Problems date description facility 20210318 Viral infection, unspecified All 01170865 Viral disease All 85682867 Urine C&S All 20210318 Urinary tract infectious disease All 37745102 Urinary tract infection, site not speci fied All 20210318 Urinalysis, Microscopic Exam Only All 17973434 Unspecified viral infection All 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 73034676 Urticaria All 42103259 Urinalysis with Microscopic Exam, Cultu re in Indicated All 99480452 Unspecified urticaria All 33548745 COMPREHENSIVE METABOLIC PANEL All 83726174 CBC W/Diff/Plt All 01875450 Urticaria, unspecified All 35143297 Sed Rate All Procedures date description facility 38881845 POC HCG All 73760737 POC URINALYSIS DIP All 67578463 [facility] 28406392 Diphenhydramine capsules 25 mg All 27291117 [facility] (PO-SL-[facility]) All 90560371 Ketorolac Tromethamine 30 mg/ml Soln A ll 02048229 Dexamethasone Sodium Phosphate Inj 10mg /1mL All 75897495 IM or SQ Injection All 54822754 Diphenhydramine capsules 25 mg All 54126550 [facility] (PO-SL[facility]-NM) All 41120966 Ketorolac Tromethamine 30 mg/ml Soln A ll 01051785 Dexamethasone Sodium Phosphate Inj 10mg /1mL All 29589310 IM or SQ Injection All 45028053 Diphenhydramine capsules 25 mg All 20210107 [facility] (PO-SL[facility]IN[facility]NM) All 20210107 Ketorolac Tromethamine 30 mg/ml Soln [...] 20210318 unknown unknown unk nown urinalysis_routine unknown 44335533 unknown unknown unkn own appearance_urine unknown 20210318 unknown unknown unknow n leukocyte_esterase_uri unknown 20210318 unknown unknown unknown ne_by_dipstick urobilinogen_urine_sem unknown 20210318 unknown unknown unknown iquantitative_dipstick_ specific_gravity_urine unknown 20210318 unknown unknown unknown pH_urine_semiquantitat unknown 47069205 unknown unknown unknown huang nitrite_urine_semiquan unknown 20210318 unknown unknown unknown titative ketones_urine_by_test_ unknown 20210318 unknown unknown unknown strip bilirubin_urine unknown 09731269 unknown unknown unknown urine_color unknown 20210318 unknown unknown unknown human_chorionic_gonado unknown 74089381 unknown unknown unknown tropin_urine_qualitativ e_urine_pregnancy_test_ Choriogonadotropin_pre unknown 77942915 unknown unknown unknown gnancy_test_Presence_in _Urine Albumin_Presence_in_Ur unknown 19916039 unknown unknown unknown ine RBC_urine_dipstick unknown 20210318 unknown unknown unkn own Erythrocytes_area_in_U unknown 53241594 unknown unknown unknown rine_sediment_by_Micros copy_high_power_field glucose_urine_semiquan unknown 62420455 unknown unknown unknown titative protein_urine_semiquan unknown 09113384 unknown unknown unknown titative_dipstick_ Urine_HCG_Exp_Date_CLI unknown 38423081 unknown unknown unknown A_Waived_ Urine_HCG_Lot_Number_C unknown 06355397 unknown unknown unknown LIA_Waived_ DIPSTICK_URINE_STRIP_L unknown 98611594 unknown unknown unknown OT_NUMBER urea_nitrogen_blood unknown 02282560 unknown unknown unk nown Erythrocytes_volume_in unknown 19873491 unknown unknown unknown _Blood_by_Automated_cou nt Erythrocyte_distributi unknown 25149148 unknown unknown unknown on_width_Ratio_by_Autom ated_count MCV_Entitic_volume_by_ unknown 63370292 unknown unknown unknown Automated_count MCH_Entitic_mass_by_Au unknown 42959170 unknown unknown unknown tomated_count Platelets_volume_in_Bl unknown 23706414 unknown unknown unknown ood_by_Automated_count Platelet_mean_volume_E unknown 85044510 unknown unknown unknown ntitic_volume_in_Blood_ by_Rees-Mimi neutrophil_count_blood unknown 11917077 unknown unknown unknown monocyte_count_blood unknown 43132695 unknown unknown un known lymphocyte_count_blood unknown 92069125 unknown unknown unknown Hemoglobin_Mass_volume unknown 19723741 unknown unknown unknown _in_Blood eosinophil_count_blood unknown 45646039 unknown unknown unknown Basophils_volume_in_Bl unknown 73514724 unknown unknown unknown ood_by_Manual_count leukocyte_count_blood unknown 07878961 unknown unknown u nknown erythrocyte_RBC_count unknown 37859703 unknown unknown u nknown Leukocytes_volume_in_B unknown 71617851 unknown unknown unknown lood_by_Automated_count Glomerular_Filtration_ unknown 36537466 unknown unknown unknown rate platelet_count unknown 32628003 unknown unknown unknown hemoglobin_blood unknown 97589587 unknown unknown unknow n hematocrit_blood unknown 90236202 unknown unknown unknow n erythrocyte_sedimentat unknown 74447627 unknown unknown unknown ion_rate potassium_blood unknown 65598715 unknown unknown unknown WBC_urine_on_microscop unknown 25098306 unknown unknown unknown y Urobilinogen_Presence_ unknown 70657641 unknown unknown unknown in_Urine_by_Test_strip Specific_gravity_of_Ur unknown 07385294 unknown unknown unknown ine_by_Test_strip pH_of_Urine_by_Test_st unknown 12590004 unknown unknown unknown rip Nitrite_Presence_in_Ur unknown 54833343 unknown unknown unknown ine_by_Test_strip Leukocyte_esterase_Pre unknown 72661187 unknown unknown unknown sence_in_Urine_by_Test_ strip Ketones_Mass_volume_in unknown 83673497 unknown unknown unknown _Urine_by_Test_strip Glucose_Mass_volume_in unknown 27744319 unknown unknown unknown _Urine_by_Test_strip Color_of_Urine unknown 15285181 unknown unknown unknown Bilirubin.total_Presen unknown 75396963 unknown unknown unknown ce_in_Urine_by_Test_str ip Appearance_of_Urine unknown 28175442 unknown unknown unk nown clarity_urine_point unknown 07551763 unknown unknown unk nown pH_study_of_acidity unknown 80854426 unknown unknown unk nown Glomerular_filtration_r unknown 19974503 unknown unknown unknown ate_1.73_sq_M.predicted _among_non-blacks_Volum e_Rate_Area_in_Serum_Pl asma_or_Blood_by_Creati nine-based_formula_MDRD _ urinalysis_routine unknown 06051695 unknown unknown unkn own Hematocrit_Volume_Frac unknown 07671681 unknown unknown unknown tion_of_Blood_by_Automa ted_count Erythrocyte_sedimentat unknown 98019203 unknown unknown unknown ion_rate_by_Westergren_ method bilirubin_serum_total unknown 70362187 unknown unknown u nknown alanine_aminotransfera unknown 03678862 unknown unknown unknown se_SGPT_serum carbon_dioxide_serum_t unknown 13615424 unknown unknown unknown otal aspartate_aminotransfe unknown 21215522 unknown unknown unknown rase_SGOT_serum protein_total_serum unknown 58661856 unknown unknown unk nown blood_glucose unknown 42557595 unknown unknown unknown potassium_blood unknown 82046903 unknown unknown unknown glucose_urine unknown 08630114 unknown unknown unknown appearance_urine unknown 73164076 unknown unknown unknow n leukocyte_esterase_uri unknown 75222341 unknown unknown unknown ne_by_dipstick urobilinogen_urine_sem unknown 13918724 unknown unknown unknown iquantitative_dipstick_ specific_gravity_urine unknown 02975497 unknown unknown unknown pH_urine_semiquantitat unknown 42667310 unknown unknown unknown huang nitrite_urine_semiquan unknown 39056248 unknown unknown unknown titative ketones_urine_by_test_ unknown 80384979 unknown unknown unknown strip bilirubin_urine unknown 80402435 unknown unknown unknown mean_corpuscular_volum unknown 87896194 unknown unknown unknown e_RBC Urea_nitrogen_Mass_vol unknown 67756701 unknown unknown unknown ume_in_Serum_or_Plasma globulin_serum unknown 78548158 unknown unknown unknown alkaline_phosphatase_s unknown 59823706 unknown unknown unknown arlyn Sodium_Moles_volume_in unknown 63783197 unknown unknown unknown _Serum_or_Plasma Protein_Mass_volume_in unknown 54314319 unknown unknown unknown _Serum_or_Plasma eosinophil_count_blood unknown 55535611 unknown unknown unknown anion_gap_serum unknown 59452625 unknown unknown unknown mean_platelet_volume unknown 93776663 unknown unknown un known urine_color unknown 09974569 unknown unknown unknown basophil_count_blood unknown 29608022 unknown unknown un known monocyte_count_blood unknown 66392759 unknown unknown un known lymphocyte_count_blood unknown 46633240 unknown unknown unknown neutrophil_count_blood unknown 57564681 unknown unknown unknown Glucose_Mass_volume_in unknown 19502155 unknown unknown unknown _Urine Glucose_Mass_volume_in unknown 23844334 unknown unknown unknown _Serum_or_Plasma Globulin_Mass_volume_i unknown 72863664 unknown unknown unknown n_Serum Creatinine_Mass_volume unknown 42692445 unknown unknown unknown _in_Serum_or_Plasma Chloride_Moles_volume_ unknown 39561963 unknown unknown unknown in_Serum_or_Plasma carbon_dioxide_serum_t unknown 01853476 unknown unknown unknown otal Calcium_Moles_volume_i unknown 82470248 unknown unknown unknown n_Serum_or_Plasma albumin_serum unknown 91184953 unknown unknown unknown Bilirubin.total_Mass_v unknown 57355677 unknown unknown unknown olume_in_Serum_or_Plasm a Aspartate_aminotransfe unknown 22732433 unknown unknown unknown rase_Enzymatic_activity _volume_in_Serum_or_Pla sma Anion_gap_4_in_Serum_o unknown 96837584 unknown unknown unknown r_Plasma creatinine_serum unknown 04845546 unknown unknown unknow n Alkaline_phosphatase_E unknown 60921300 unknown unknown unknown nzymatic_activity_volum e_in_Blood Albumin_Globulin_Mass_ unknown 40447971 unknown unknown unknown Ratio_in_Serum_or_Plasm a Albumin_Presence_in_Ur unknown 71034856 unknown unknown unknown ine Albumin_Mass_volume_in unknown 53341965 unknown unknown unknown _Serum_or_Plasma Alanine_aminotransfera unknown 73297409 unknown unknown unknown se_Enzymatic_activity_v olume_in_Serum_or_Plasm a mean_corpuscular_hemog unknown 71125336 unknown unknown unknown lobin_concentration_rbc RBC_urine_dipstick unknown 66736300 unknown unknown unkn own sodium_serum unknown 94248874 unknown unknown unknown albumin_globulin_ratio unknown 27078436 unknown unknown unknown _serum Erythrocytes_area_in_U unknown 47630229 unknown unknown unknown rine_sediment_by_Micros copy_high_power_field chloride_serum unknown 70316951 unknown unknown unknown glucose_urine_semiquan unknown 87166064 unknown unknown unknown titative protein_urine_semiquan unknown 46530468 unknown unknown unknown titative_dipstick_ calcium_serum unknown 58029956 unknown unknown unknown mean_corpuscular_hemog unknown 32374064 unknown unknown unknown lobin_RBC red_blood_cell_distrib unknown 55559903 unknown unknown unknown ution_width WBC_urine_on_microscop unknown 96380163 unknown unknown unknown y DIPSTICK_URINE_STRIP_L unknown 21808052 unknown unknown unknown OT_NUMBER T unknown 68683540 unknown unknown unknown WBC_URINE unknown 49223141 unknown unknown unknown UROBILINOGEN_URINE unknown 82124875 unknown unknown unkn own SPECIFIC_GRAVITY_URINE unknown 20570042 unknown unknown unknown T unknown 91805980 unknown unknown unknown T unknown 05432460 unknown unknown unknown T unknown 55679206 unknown unknown unknown T unknown 50354895 unknown unknown unknown T unknown 48750798 unknown unknown unknown T unknown 05224238 unknown unknown unknown T unknown 22907736 unknown unknown unknown T unknown 06982252 unknown unknown unknown T unknown 76555219 unknown unknown unknown T unknown 32761390 unknown unknown unknown T unknown 78628540 unknown unknown unknown PH_URINE unknown 47405915 unknown unknown unknown NITRITE_URINE unknown 98588920 unknown unknown unknown LEUKOCYTE_ESTERASE_URI unknown 00524286 unknown unknown unknown NE KETONES_URINE_UA_ unknown 34236930 unknown unknown unkno wn GLUCOSE_URINE_UA_ unknown 72246245 unknown unknown unkno wn COLOR_URINE unknown 91534573 unknown unknown unknown CLARITY_URINE unknown 29762407 unknown unknown unknown BILIRUBIN_URINE unknown 40069263 unknown unknown unknown T unknown 17187876 unknown unknown unknown T unknown 94782111 unknown unknown unknown T unknown 03859843 unknown unknown unknown T unknown 78134668 unknown unknown unknown T unknown 01021398 unknown unknown unknown NEUTROPHILS_AUTO_ unknown 42510609 unknown unknown unkno wn T unknown 66723813 unknown unknown unknown T unknown 73888434 unknown unknown unknown T unknown 57930851 unknown unknown unknown MONOCYTES_AUTO_ unknown 87321024 unknown unknown unknown T unknown 78511430 unknown unknown unknown T unknown 95525057 unknown unknown unknown T unknown 67923560 unknown unknown unknown T unknown 19754330 unknown unknown unknown LYMPHOCYTES_AUTO_ unknown 87100147 unknown unknown unkno wn T unknown 66918997 unknown unknown unknown T unknown 70698100 unknown unknown unknown T unknown 29641018 unknown unknown unknown T unknown 92510905 unknown unknown unknown T unknown 67123013 unknown unknown unknown T unknown 56789670 unknown unknown unknown T unknown 04837819 unknown unknown unknown GFR_-_MDRD unknown 40414937 unknown unknown unknown T unknown 15948905 unknown unknown unknown T unknown 01029262 unknown unknown unknown EOSINOPHILS_AUTO_ unknown 00984945 unknown unknown unkno wn T unknown 37700427 unknown unknown unknown T unknown 80651146 unknown unknown unknown T unknown 88101631 unknown unknown unknown T unknown 32105392 unknown unknown unknown T unknown 01119293 unknown unknown unknown T unknown 18843316 unknown unknown unknown BILIRUBIN_TOTAL unknown 67418045 unknown unknown unknown BASOPHILS_AUTO_ unknown 25875741 unknown unknown unknown T unknown 99964043 unknown unknown unknown T unknown 16374062 unknown unknown unknown T unknown 77981777 unknown unknown unknown T unknown 56535066 unknown unknown unknown ALT_ALANINE_AMINOTRANS unknown 05843198 unknown unknown unknown FERASE ALKALINE_PHOSPHATASE unknown 75743081 unknown unknown un known T unknown 70935535 unknown unknown unknown T unknown 23821666 unknown unknown unknown ALBUMIN_GLOBULIN_RATIO unknown 96264348 unknown unknown unknown urea_nitrogen_blood unknown 24769126 unknown unknown unk nown Erythrocytes_volume_in unknown 36057515 unknown unknown unknown _Blood_by_Automated_cou nt Erythrocyte_distributi unknown 14683160 unknown unknown unknown on_width_Ratio_by_Autom ated_count MCV_Entitic_volume_by_ unknown 36962363 unknown unknown unknown Automated_count MCH_Entitic_mass_by_Au unknown 39067346 unknown unknown unknown tomated_count Platelets_volume_in_Bl unknown 64607359 unknown unknown unknown ood_by_Automated_count Platelet_mean_volume_E unknown 78640747 unknown unknown unknown ntitic_volume_in_Blood_ by_Rees-Mimi neutrophil_count_blood unknown 87151962 unknown unknown unknown monocyte_count_blood unknown 58011301 unknown unknown un known lymphocyte_count_blood unknown 50399021 unknown unknown unknown Hemoglobin_Mass_volume unknown 62351907 unknown unknown unknown _in_Blood eosinophil_count_blood unknown 56236584 unknown unknown unknown Basophils_volume_in_Bl unknown 36811072 unknown unknown unknown ood_by_Manual_count leukocyte_count_blood unknown 10325069 unknown unknown u nknown erythrocyte_RBC_count unknown 76883613 unknown unknown u nknown Leukocytes_volume_in_B unknown 49016063 unknown unknown unknown lood_by_Automated_count Glomerular_Filtration_ unknown 96727839 unknown unknown unknown rate platelet_count unknown 14367632 unknown unknown unknown hemoglobin_blood unknown 66786014 unknown unknown unknow n hematocrit_blood unknown 27709382 unknown unknown unknow n erythrocyte_sedimentat unknown 42982719 unknown unknown unknown ion_rate potassium_blood unknown 57403466 unknown unknown unknown WBC_urine_on_microscop unknown 55334806 unknown unknown unknown y clarity_urine_point unknown 50718215 unknown unknown unk nown pH_study_of_acidity unknown 17261974 unknown unknown unk nown Glomerular_filtration_r unknown 02930966 unknown unknown unknown ate_1.73_sq_M.predicted _among_non-blacks_Volum e_Rate_Area_in_Serum_Pl asma_or_Blood_by_Creati nine-based_formula_MDRD _ Hematocrit_Volume_Frac unknown 71260480 unknown unknown unknown tion_of_Blood_by_Automa ted_count Erythrocyte_sedimentat unknown 18248405 unknown unknown unknown ion_rate_by_Westergren_ method bilirubin_serum_total unknown 00253814 unknown unknown u nknown alanine_aminotransfera unknown 28019323 unknown unknown unknown se_SGPT_serum carbon_dioxide_serum_t unknown 86661887 unknown unknown unknown otal aspartate_aminotransfe unknown 40248205 unknown unknown unknown rase_SGOT_serum protein_total_serum unknown 04666389 unknown unknown unk nown blood_glucose unknown 93449779 unknown unknown unknown potassium_blood unknown 15617612 unknown unknown unknown glucose_urine unknown 61957499 unknown unknown unknown mean_corpuscular_volum unknown 14811864 unknown unknown unknown e_RBC Urea_nitrogen_Mass_vol unknown 68511906 unknown unknown unknown ume_in_Serum_or_Plasma globulin_serum unknown 53880093 unknown unknown unknown alkaline_phosphatase_s unknown 63063574 unknown unknown unknown arlyn Sodium_Moles_volume_in unknown 66710728 unknown unknown unknown _Serum_or_Plasma Protein_Mass_volume_in unknown 55661550 unknown unknown unknown _Serum_or_Plasma eosinophil_count_blood unknown 03431086 unknown unknown unknown anion_gap_serum unknown 03592400 unknown unknown unknown mean_platelet_volume unknown 68238666 unknown unknown un known basophil_count_blood unknown 33292230 unknown unknown un known monocyte_count_blood unknown 49942851 unknown unknown un known lymphocyte_count_blood unknown 30350011 unknown unknown unknown neutrophil_count_blood unknown 04189707 unknown unknown unknown Glucose_Mass_volume_in unknown 66603335 unknown unknown unknown _Urine Glucose_Mass_volume_in unknown 07550292 unknown unknown unknown _Serum_or_Plasma Globulin_Mass_volume_i unknown 54982707 unknown unknown unknown n_Serum Creatinine_Mass_volume unknown 36488361 unknown unknown unknown _in_Serum_or_Plasma Chloride_Moles_volume_ unknown 28651822 unknown unknown unknown in_Serum_or_Plasma carbon_dioxide_serum_t unknown 55028367 unknown unknown unknown otal Calcium_Moles_volume_i unknown 21642200 unknown unknown unknown n_Serum_or_Plasma albumin_serum unknown 17528126 unknown unknown unknown Bilirubin.total_Mass_v unknown 04818772 unknown unknown unknown olume_in_Serum_or_Plasm a Aspartate_aminotransfe unknown 98854112 unknown unknown unknown rase_Enzymatic_activity _volume_in_Serum_or_Pla sma Anion_gap_4_in_Serum_o unknown 61582816 unknown unknown unknown r_Plasma creatinine_serum unknown 97427442 unknown unknown unknow n Alkaline_phosphatase_E unknown 62579741 unknown unknown unknown nzymatic_activity_volum e_in_Blood Albumin_Globulin_Mass_ unknown 01919608 unknown unknown unknown Ratio_in_Serum_or_Plasm a Albumin_Mass_volume_in unknown 38203534 unknown unknown unknown _Serum_or_Plasma Alanine_aminotransfera unknown 31663628 unknown unknown unknown se_Enzymatic_activity_v olume_in_Serum_or_Plasm a mean_corpuscular_hemog unknown 32791917 unknown unknown unknown lobin_concentration_rbc sodium_serum unknown 54272048 unknown unknown unknown albumin_globulin_ratio unknown 49725709 unknown unknown unknown _serum chloride_serum unknown 56461940 unknown unknown unknown calcium_serum unknown 27487545 unknown unknown unknown mean_corpuscular_hemog unknown 56888871 unknown unknown unknown lobin_RBC red_blood_cell_distrib unknown 41852596 unknown unknown unknown ution_width WBC_urine_on_microscop unknown 64317853 unknown unknown unknown y T unknown 24974863 unknown unknown unknown WBC_URINE unknown 36521689 unknown unknown unknown T unknown 26625989 unknown unknown unknown T unknown 41659213 unknown unknown unknown T unknown 92913261 unknown unknown unknown T unknown 77740497 unknown unknown unknown PH_URINE unknown 94522417 unknown unknown unknown GLUCOSE_URINE_UA_ unknown 13223879 unknown unknown unkno wn CLARITY_URINE unknown 73320170 unknown unknown unknown T unknown 74009083 unknown unknown unknown T unknown 38870139 unknown unknown unknown T unknown 71040358 unknown unknown unknown T unknown 16182696 unknown unknown unknown T unknown 39647345 unknown unknown unknown NEUTROPHILS_AUTO_ unknown 20138656 unknown unknown unkno wn T unknown 10735312 unknown unknown unknown T unknown 35500013 unknown unknown unknown T unknown 87948228 unknown unknown unknown MONOCYTES_AUTO_ unknown 00850986 unknown unknown unknown T unknown 24529759 unknown unknown unknown T unknown 85628530 unknown unknown unknown T unknown 28314087 unknown unknown unknown T unknown 82317043 unknown unknown unknown LYMPHOCYTES_AUTO_ unknown 19561991 unknown unknown unkno wn T unknown 70833359 unknown unknown unknown T unknown 97200649 unknown unknown unknown T unknown 52047081 unknown unknown unknown T unknown 06759001 unknown unknown unknown T unknown 76543930 unknown unknown unknown T unknown 78688472 unknown unknown unknown T unknown 05555278 unknown unknown unknown GFR_-_MDRD unknown 93376318 unknown unknown unknown T unknown 98244604 unknown unknown unknown T unknown 73935608 unknown unknown unknown EOSINOPHILS_AUTO_ unknown 14615328 unknown unknown unkno wn T unknown 05433630 unknown unknown unknown T unknown 41280949 unknown unknown unknown T unknown 40052401 unknown unknown unknown T unknown 26527238 unknown unknown unknown T unknown 39476384 unknown unknown unknown T unknown 48221619 unknown unknown unknown BILIRUBIN_TOTAL unknown 40015609 unknown unknown unknown BASOPHILS_AUTO_ unknown 43144307 unknown unknown unknown T unknown 01386964 unknown unknown unknown T unknown 31891325 unknown unknown unknown T unknown 92460986 unknown unknown unknown T unknown 56405929 unknown unknown unknown ALT_ALANINE_AMINOTRANS unknown 27176128 unknown unknown unknown FERASE ALKALINE_PHOSPHATASE unknown 34582953 unknown unknown un known T unknown 95472640 unknown unknown unknown T unknown 09186746 unknown unknown unknown ALBUMIN_GLOBULIN_RATIO unknown 48716731 unknown unknown unknown urea_nitrogen_blood unknown 96664897 unknown unknown unk nown Erythrocytes_volume_in unknown 03273389 unknown unknown unknown _Blood_by_Automated_cou nt Erythrocyte_distributi unknown 51459150 unknown unknown unknown on_width_Ratio_by_Autom ated_count MCV_Entitic_volume_by_ unknown 72347894 unknown unknown unknown Automated_count MCH_Entitic_mass_by_Au unknown 31501704 unknown unknown unknown tomated_count Platelets_volume_in_Bl unknown 60646352 unknown unknown unknown ood_by_Automated_count Platelet_mean_volume_E unknown 41426724 unknown unknown unknown ntitic_volume_in_Blood_ by_Rees-Mimi neutrophil_count_blood unknown 32301626 unknown unknown unknown monocyte_count_blood unknown 15360705 unknown unknown un known lymphocyte_count_blood unknown 37057954 unknown unknown unknown Hemoglobin_Mass_volume unknown 96885646 unknown unknown unknown _in_Blood eosinophil_count_blood unknown 80064843 unknown unknown unknown Basophils_volume_in_Bl unknown 70124774 unknown unknown unknown ood_by_Manual_count leukocyte_count_blood unknown 97593434 unknown unknown u nknown erythrocyte_RBC_count unknown 56417039 unknown unknown u nknown Leukocytes_volume_in_B unknown 29316262 unknown unknown unknown lood_by_Automated_count Glomerular_Filtration_ unknown 54114172 unknown unknown unknown rate platelet_count unknown 84097183 unknown unknown unknown hemoglobin_blood unknown 71235389 unknown unknown unknow n hematocrit_blood unknown 78041525 unknown unknown unknow n erythrocyte_sedimentat unknown 94129451 unknown unknown unknown ion_rate potassium_blood unknown 43955482 unknown unknown unknown WBC_urine_on_microscop unknown 93485036 unknown unknown unknown y Urobilinogen_Presence_ unknown 26514016 unknown unknown unknown in_Urine_by_Test_strip Urobilinogen_Presence_ unknown 30812817 unknown unknown unknown in_Urine_by_Test_strip Specific_gravity_of_Ur unknown [id number] unknown unknown unknown ine_by_Test_strip Specific_gravity_of_Ur unknown [id number] unknown unknown unknown ine_by_Test_strip pH_of_Urine_by_Test_st unknown [id number] unknown unknown unknown rip Nitrite_Presence_in_Ur unknown [id number] unknown unknown unknown ine_by_Test_strip Nitrite_Presence_in_Ur unknown [id number] unknown unknown unknown ine_by_Test_strip Leukocyte_esterase_Pre unknown [id number] unknown unknown unknown sence_in_Urine_by_Test_ strip Leukocyte_esterase_Pre unknown [id number] unknown unknown unknown sence_in_Urine_by_Test_ strip Ketones_Mass_volume_in unknown 06687889 unknown unknown unknown _Urine_by_Test_strip Ketones_Mass_volume_in unknown [id number] unknown unknown unknown _Urine_by_Test_strip Glucose_Mass_volume_in unknown 42747516 unknown unknown unknown _Urine_by_Test_strip Color_of_Urine unknown 63957213 unknown unknown unknown Color_of_Urine unknown 80078535 unknown unknown unknown Bilirubin.total_Presen unknown 21888635 unknown unknown unknown ce_in_Urine_by_Test_str ip Bilirubin.total_Presen unknown [id number] unknown unknown unknown ce_in_Urine_by_Test_str ip Appearance_of_Urine unknown [id number] unknown unknown unk nown clarity_urine_point unknown 84460332 unknown unknown unk nown pH_study_of_acidity unknown 46246020 unknown unknown unk nown Glomerular_filtration_r unknown 34470517 unknown unknown unknown ate_1.73_sq_M.predicted _among_non-blacks_Volum e_Rate_Area_in_Serum_Pl asma_or_Blood_by_Creati nine-based_formula_MDRD _ urinalysis_routine unknown 10828419 unknown unknown unkn own Hematocrit_Volume_Frac unknown 53062737 unknown unknown unknown tion_of_Blood_by_Automa ted_count Erythrocyte_sedimentat unknown 54933557 unknown unknown unknown ion_rate_by_[place]_ method bilirubin_serum_total unknown 94967415 unknown unknown u nknown alanine_aminotransfera unknown 98390491 unknown unknown unknown se_SGPT_serum carbon_dioxide_serum_t unknown 76133470 unknown unknown unknown otal aspartate_aminotransfe unknown 23958041 unknown unknown unknown rase_SGOT_serum protein_total_serum unknown 85456416 unknown unknown unk nown blood_glucose unknown 41407905 unknown unknown unknown potassium_blood unknown 05615918 unknown unknown unknown glucose_urine unknown 68357867 unknown unknown unknown appearance_urine unknown 66308063 unknown unknown unknow n leukocyte_esterase_uri unknown 17967358 unknown unknown unknown ne_by_dipstick leukocyte_esterase_uri unknown 90674536 unknown unknown unknown ne_by_dipstick urobilinogen_urine_sem unknown 59919768 unknown unknown unknown iquantitative_dipstick_ urobilinogen_urine_sem unknown 13343644 unknown unknown unknown iquantitative_dipstick_ specific_gravity_urine unknown 60629161 unknown unknown unknown specific_gravity_urine unknown 46727243 unknown unknown unknown pH_urine_semiquantitat unknown 94055453 unknown unknown unknown huang nitrite_urine_semiquan unknown 76549734 unknown unknown unknown titative nitrite_urine_semiquan unknown 20038677 unknown unknown unknown titative ketones_urine_by_test_ unknown 80335203 unknown unknown unknown strip ketones_urine_by_test_ unknown 51498944 unknown unknown unknown strip bilirubin_urine unknown 34121030 unknown unknown unknown bilirubin_urine unknown 63382854 unknown unknown unknown mean_corpuscular_volum unknown 63310883 unknown unknown unknown e_RBC Urea_nitrogen_Mass_vol unknown 37449579 unknown unknown unknown ume_in_Serum_or_Plasma globulin_serum unknown 92641188 unknown unknown unknown alkaline_phosphatase_s unknown 46337773 unknown unknown unknown arlyn Sodium_Moles_volume_in unknown 63167167 unknown unknown unknown _Serum_or_Plasma Protein_Mass_volume_in unknown 25672184 unknown unknown unknown _Serum_or_Plasma eosinophil_count_blood unknown 12469409 unknown unknown unknown anion_gap_serum unknown 49855280 unknown unknown unknown mean_platelet_volume unknown 65686595 unknown unknown un known urine_color unknown 83028087 unknown unknown unknown urine_color unknown 16404782 unknown unknown unknown basophil_count_blood unknown 04112691 unknown unknown un known monocyte_count_blood unknown 38235245 unknown unknown un known lymphocyte_count_blood unknown 86427141 unknown unknown unknown neutrophil_count_blood unknown 08605732 unknown unknown unknown Glucose_Mass_volume_in unknown 72149614 unknown unknown unknown _Urine Glucose_Mass_volume_in unknown 17022582 unknown unknown unknown _Serum_or_Plasma Globulin_Mass_volume_i unknown 90565351 unknown unknown unknown n_Serum Creatinine_Mass_volume unknown 98827174 unknown unknown unknown _in_Serum_or_Plasma Chloride_Moles_volume_ unknown 57649243 unknown unknown unknown in_Serum_or_Plasma carbon_dioxide_serum_t unknown 96842021 unknown unknown unknown otal Calcium_Moles_volume_i unknown 60853490 unknown unknown unknown n_Serum_or_Plasma albumin_serum unknown 22987629 unknown unknown unknown Bilirubin.total_Mass_v unknown 61960898 unknown unknown unknown olume_in_Serum_or_Plasm a Aspartate_aminotransfe unknown 98879170 unknown unknown unknown rase_Enzymatic_activity _volume_in_Serum_or_Pla sma Anion_gap_4_in_Serum_o unknown 08030180 unknown unknown unknown r_Plasma creatinine_serum unknown 10007516 unknown unknown unknow n Alkaline_phosphatase_E unknown 65694520 unknown unknown unknown nzymatic_activity_volum e_in_Blood Albumin_Globulin_Mass_ unknown 04930705 unknown unknown unknown Ratio_in_Serum_or_Plasm a Albumin_Presence_in_Ur unknown 63747836 unknown unknown unknown ine Albumin_Mass_volume_in unknown 58825257 unknown unknown unknown _Serum_or_Plasma Alanine_aminotransfera unknown 18543100 unknown unknown unknown se_Enzymatic_activity_v olume_in_Serum_or_Plasm a mean_corpuscular_hemog unknown 93387340 unknown unknown unknown lobin_concentration_rbc RBC_urine_dipstick unknown 87081884 unknown unknown unkn own sodium_serum unknown 22300864 unknown unknown unknown albumin_globulin_ratio unknown 44655378 unknown unknown unknown _serum Erythrocytes_area_in_U unknown 83338386 unknown unknown unknown rine_sediment_by_Micros copy_high_power_field chloride_serum unknown 22196307 unknown unknown unknown glucose_urine_semiquan unknown 40991046 unknown unknown unknown titative protein_urine_semiquan unknown 15140364 unknown unknown unknown titative_dipstick_ calcium_serum unknown 62145480 unknown unknown unknown mean_corpuscular_hemog unknown 54655169 unknown unknown unknown lobin_RBC red_blood_cell_distrib unknown 97526016 unknown unknown unknown ution_width WBC_urine_on_microscop unknown 26970941 unknown unknown unknown y DIPSTICK_URINE_STRIP_L unknown 17234461 unknown unknown unknown OT_NUMBER T unknown 41052003 unknown unknown unknown WBC_URINE unknown 95731628 unknown unknown unknown UROBILINOGEN_URINE unknown 37250606 unknown unknown unkn own SPECIFIC_GRAVITY_URINE unknown 54562446 unknown unknown unknown T unknown 06891668 unknown unknown unknown T unknown 74204128 unknown unknown unknown T unknown 35974549 unknown unknown unknown T unknown 26926150 unknown unknown unknown T unknown 27925373 unknown unknown unknown T unknown 74619964 unknown unknown unknown T unknown 23569340 unknown unknown unknown T unknown 70774221 unknown unknown unknown T unknown 39048595 unknown unknown unknown T unknown 78536011 unknown unknown unknown T unknown 46375231 unknown unknown unknown PH_URINE unknown 66055497 unknown unknown unknown NITRITE_URINE unknown 76732198 unknown unknown unknown LEUKOCYTE_ESTERASE_URI unknown 79139446 unknown unknown unknown NE KETONES_URINE_UA_ unknown 53984312 unknown unknown unkno wn GLUCOSE_URINE_UA_ unknown 01454072 unknown unknown unkno wn COLOR_URINE unknown 51003525 unknown unknown unknown CLARITY_URINE unknown 18840572 unknown unknown unknown BILIRUBIN_URINE unknown 16483451 unknown unknown unknown T unknown 56058059 unknown unknown unknown T unknown 08177269 unknown unknown unknown T unknown 65088718 unknown unknown unknown T unknown 85477139 unknown unknown unknown T unknown 76482137 unknown unknown unknown NEUTROPHILS_AUTO_ unknown 88078274 unknown unknown unkno wn T unknown 73184964 unknown unknown unknown T unknown 20930201 unknown unknown unknown T unknown 79419445 unknown unknown unknown MONOCYTES_AUTO_ unknown 64591082 unknown unknown unknown T unknown 14340619 unknown unknown unknown T unknown 76065492 unknown unknown unknown T unknown 79991672 unknown unknown unknown T unknown 47509386 unknown unknown unknown LYMPHOCYTES_AUTO_ unknown 68350220 unknown unknown unkno wn T unknown 72727962 unknown unknown unknown T unknown 89488377 unknown unknown unknown T unknown 12584285 unknown unknown unknown T unknown 90225752 unknown unknown unknown T unknown 84275261 unknown unknown unknown T unknown 65126504 unknown unknown unknown T unknown 93856183 unknown unknown unknown GFR_-_MDRD unknown 39246561 unknown unknown unknown T unknown 48404156 unknown unknown unknown T unknown 49188123 unknown unknown unknown EOSINOPHILS_AUTO_ unknown 36382363 unknown unknown unkno wn T unknown 36412668 unknown unknown unknown T unknown 06264817 unknown unknown unknown T unknown 92227053 unknown unknown unknown T unknown 11684472 unknown unknown unknown T unknown 07774466 unknown unknown unknown T unknown 69478781 unknown unknown unknown BILIRUBIN_TOTAL unknown 55301951 unknown unknown unknown BASOPHILS_AUTO_ unknown 87787326 unknown unknown unknown T unknown 17110197 unknown unknown unknown T unknown 06910627 unknown unknown unknown T unknown 75413765 unknown unknown unknown T unknown 95580417 unknown unknown unknown ALT_ALANINE_AMINOTRANS unknown 71228833 unknown unknown unknown FERASE ALKALINE_PHOSPHATASE unknown 83027774 unknown unknown un known T unknown 01327750 unknown unknown unknown T unknown 81905747 unknown unknown unknown ALBUMIN_GLOBULIN_RATIO unknown 10358050 unknown unknown unknown facility observation status value [...] own unknown p_Date_CLIA_W aived_ All Urine_HCG_Lo unknown 32606 unknown _[id number] unknow n unknown t_Number_CLIA _Waived_ [...] unknown 0.8 unknown mg/dL BILIT unknown unknown ISAREL All BASOPHILS_AU unknown 0.1 10 unknown BA_ [...] measurement value source 20210107 weight_standard 161.8 lb [id number] weight_metric 73.39 kg [id number] temperature_standard 97.6 F 20210107 temperature_standard 97.52 F 26854356 temperature_metric 36.44 C 20210107 temperature_metric 36.4 C 77950133 respiration_rate 16 /min 41548273 height_standard 63 in 20210107 height_metric 160.02 cm 73155055 heart_rate 67 /min 45533069 BP_systolic 116 mm[Hg] 87241596 BP_diastolic 76 mm[Hg] 40569549 BMI 28.77 kg/m2 25684779 temperature_standard 97.52 F 62347047 temperature_metric 36.4 C 55472039 weight_standard 161.8 lb 08335017 weight_metric 73.39 kg 59917075 temperature_standard 97.6 F 07774086 temperature_standard 97.52 F 95049414 temperature_metric 36.44 C 03185897 temperature_metric 36.4 C 35690985 respiration_rate 16 /min 18017733 height_standard 63 in 35418983 height_metric 160.02 cm 33921213 heart_rate 67 /min 19476640 BP_systolic 116 mm[Hg] 30472285 BP_diastolic 76 mm[Hg] 36310628 BMI 28.77 kg/m2 06145760 weight_standard 65.77 lb 45434840 weight_metric 29.83 kg 30744236 temperature_standard 98 F 20210306 temperature_metric 36.67 C 20210306 respiration_rate 18 /min 20210306 height_standard 61 in 20210306 height_metric 154.94 cm 16716062 heart_rate 85 /min 20210306 BP_systolic 132 mm[Hg] 19231335 BP_diastolic 75 mm[Hg] 20210306 BMI 27.3 kg/m2 20210318 weight_standard 164.4 lb 20210318 weight_metric 74.57 kg 20210318 temperature_standard 97.4 F 20210318 temperature_metric 36.33 C 20210318 respiration_rate 12 /min 20210318 height_standard 63 in 20210318 height_metric 160.02 cm 20210318 heart_rate 64 /min 20210318 BP_systolic 126 mm[Hg] 20210318 BP_diastolic 82 mm[Hg] 20210318 BMI 29.23 kg/m2
[2021-03-31] MEDS ORDERED: ONDANSETRON ODT 4 MG TABLET TL STA (01:57)
[2021-03-31] MEDS ORDERED: ONDANSETRON 4 MG/2 ML VIAL IVP STA (01:57)
[2021-03-31] MEDS ORDERED: SODIUM CHLORIDE 0.9% 1,000 ML IV STA (01:57)
[2021-03-31 02:15] LABS: BASOPHILS # (AUTO) 0.1 10^3/uL (0.0-0.1); BASOPHILS % (AUTO) 0.4 %; EOSINOPHILS # (AUTO) 0.2 10^3/uL (0.0-0.7); EOSINOPHILS % (AUTO) 1.3 %; HCT - HEMATOCRIT 37.8 % (37.0-47.0); HGB - HEMOGLOBIN 12.7 g/dL (12.0-16.0); LYMPHOCYTES % (AUTO) 22.9 %; MEAN CORPUSCULAR HEMOGLOBIN 29.4 pg (27.0-31.0); MEAN CORPUSCULAR HGB CONC 33.6 g/dL (32.0-36.0); MEAN CORPUSCULAR VOLUME 87.5 fL (81.0-99.0); MEAN PLATELET VOLUME 9.2 fL (7.9-10.8); MONOCYTES # (AUTO) 1.4 10^3/uL (0.0-1.0); MONOCYTES % (AUTO) 10.7 %; NEUTROPHILS # (AUTO) 8.5 10^3/uL (1.5-6.6); NEUTROPHILS % (AUTO) 64.5 %; PLT - PLATELET COUNT 265 10^3/uL (130-450); RED BLOOD COUNT 4.32 10^6/uL (4.20-5.40); RED CELL DISTRIBUTION WIDTH 12.9 % (12.0-15.0); WHITE BLOOD COUNT 13.2 x10^3/uL (4.8-10.8)
[2021-03-31 02:28] LABS: ALBUMIN 4.1 g/dL (3.2-5.5); ALBUMIN/GLOBULIN RATIO 1.3 (1.0-2.2); BILIRUBIN,TOTAL 0.9 mg/dL (0.2-1.0); CREATININE 0.6 mg/dL (0.4-1.0); POTASSIUM 3.4 mmol/L (3.5-5.0); TOTAL PROTEIN 7.3 g/dL (6.7-8.2)
[2021-03-31 02:36] LABS: BILIRUBIN,URINE NEGATIVE (NEGATIVE); GLUCOSE, URINE (UA) NEGATIVE (NEGATIVE); KETONES,URINE (UA) NEGATIVE (NEGATIVE); LEUKOCYTE ESTERASE, URINE MODERATE (NEGATIVE); NITRITE,URINE NEGATIVE (NEGATIVE); OCCULT BLOOD,URINE NEGATIVE (NEGATIVE); PROTEIN,URINE NEGATIVE (NEGATIVE); UROBILINOGEN,URINE 0.2 (NORMAL) E.U./dL (NORMAL)
[2021-03-31 02:54] LABS: CLARITY,URINE CLEAR (CLEAR); HCG UR QUAL NEGATIVE
[2021-03-31 02:55] LABS: BACTERIA,URINE Few /HPF (None Seen); RBC,URINE 0-5 /HPF (0-5); SQUAMOUS EPITHELIAL CELL,UR MOD Squamous (<= Few)
[2021-03-31] MEDS ORDERED: HALOPERIDOL 5 MG/ML VIAL IVP ONE (03:40)
--- NOTE | 2021-03-31 03:41 | ED Physician Documentation ---
PD HPI NVD - Stated complaint Stated Complaint: VOMITING - Chief complaint Chief Complaint: Abd Pain - History obtained from History obtained from: Patient - History of Present Illness Timing - onset: Today Timing - duration: Hours Timing - details: Abrupt onset, Still present Associated symptoms: No: Fever, Abdominal pain Contributing factors: Recent antibiotics, Other (had wisdom teeth out yesterday) Improved by: Vomiting Worsened by: Other (meds) Similar symptoms before: Diagnosis (vomiting) Recently seen: Surgery - Additonal information Additional information: 20-year-old female with a history of irritable bowel cystitis and prior episodes of vomiting had her wisdom teeth out today and she had general IV anesthesia for this and she was well initially at home. As the evening wore on she began to develop nausea and vomiting she has had persistent nausea and vomiting uncontrollable now and she has come to the emergency department. She states that she has discontinued the use of cannabis about 5 days ago prior to her surgery in preparation for surgery. She has not formally been diagnosed with cannabis hyperemesis previously. She has had episodes of vomiting. Review of Systems Constitutional: denies: Fever Ears: denies: Ear pain Nose: denies: Congestion Throat: reports: Dental pain / toothache. 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 : Chronic bladder infection HEENT: None Psych: None Musculoskeletal: None Derm: None - Past Surgical History Past Surgical History: Yes - Present Medications Home Medications: Ambulatory Orders Medication Instructions Recorded Confirmed Amoxicillin 500 mg PO TID 03/31/21 03/31/21 Promethazine [Phenergan] 25 mg PO Q6H PRN #10 tab 03/31/21 oxyCODONE/ACET 5/325 [Percocet 5 1 tab PO Q4HR PRN 03/31/21 03/31/21 mg/325 mg] - Allergies Allergies/Adverse Reactions: Allergies Allergy/AdvReac Type Severity Reaction Status Date / Time No Known Drug Allergies Allergy Verified 03/31/21 00:30 - Social History Does the pt smoke?: No Smoking Status: Never smoker Does the pt drink ETOH?: No Does the pt have substance abuse?: No - Immunizations Immunizations are current?: Yes - POLST Patient has POLST: No PD ED PE NORMAL - Vitals Vital signs reviewed: Yes (normal ) - General General: Alert and oriented X 3, No acute distress, Well developed/nourished - HEENT HEENT: Atraumatic, PERRL, EOMI - Neck Neck: Supple, no meningeal sign, No bony TTP - Cardiac Cardiac: RRR, No murmur - Respiratory Respiratory: No respiratory distress, Clear bilaterally - Abdomen Abdomen: Normal bowel sounds, Soft, Non distended, No organomegaly, Other (mild generalized tenderness without focal tenderness or garding. ) - Back Back: No CVA TTP, No spinal TTP - Derm Derm: Normal color, Warm and dry, No rash - Extremities Extremities: No deformity, No edema - Neuro Neuro: Alert and oriented X 3, shove up 2-12 intact, No motor deficit, No sensory deficit, Normal speech Eye Opening: Spontaneous Motor: Obeys Commands Verbal: Oriented GCS Score: 15 - Psych Psych: Normal mood, Normal affect Results - Vitals Vitals: Vital Signs - 24 hr 03/31/21 03/31/21 03/31/21 00:27 00:49 02:53 Temperature 36.3 C L 36.3 C L 37.0 C Heart Rate 53 L 53 L 68 Respiratory 20 20 16 Rate Blood Pressure 116/76 116/76 105/59 L O2 Saturation 100 100 100 03/31/21 04:32 Temperature 36.1 C L Heart Rate 71 Respiratory 18 Rate Blood Pressure 97/47 L O2 Saturation 100 Oxygen O2 Source Room air - Labs Labs: Laboratory Tests 03/31/21 03/31/21 03/31/21 02:10 02:10 02:25 WBC 13.2 H RBC 4.32 Hgb 12.7 Hct 37.8 MCV 87.5 MCH 29.4 MCHC 33.6 RDW 12.9 Plt Count 265 MPV 9.2 Neut # (Auto) 8.5 H Lymph # (Auto) 3.0 Hood # (Auto) 1.4 H Eos # (Auto) 0.2 Baso # (Auto) 0.1 Absolute Nucleated RBC 0.00 Nucleated RBC % 0.0 Sodium 137 Potassium 3.4 L Chloride 105 Carbon Dioxide 23 Anion Gap 9.0 BUN 10 Creatinine 0.6 Estimated GFR (MDRD) 127 Glucose 97 Calcium 9.0 Total Bilirubin 0.9 AST 16 ALT 17 Alkaline Phosphatase 60 Total Protein 7.3 Albumin 4.1 Globulin 3.2 Albumin/Globulin Ratio 1.3 Lipase 21 L Urine Color YELLOW Urine Clarity CLEAR Urine pH 6.0 Ur Specific [place] 1.015 Urine Protein NEGATIVE Urine Glucose (UA) NEGATIVE Urine Ketones NEGATIVE Urine Occult Blood NEGATIVE Urine Nitrite NEGATIVE Urine Bilirubin NEGATIVE Urine Urobilinogen 0.2 (NORMAL) Ur Leukocyte Esterase MODERATE H Urine RBC 0-5 Urine WBC 4-5 Ur Squamous Epith Cells MOD Squamous H Urine Bacteria Few Ur Microscopic Review INDICATED Urine Culture Comments NOT INDICATED Urine HCG, Qual NEGATIVE PD MEDICAL DECISION MAKING - ED course Complexity details: reviewed old records, reviewed results, re-evaluated patient, considered differential, d/w patient ED course: 20-year-old female with acute vomiting after getting her wisdom teeth taken out has little luck with use of Zofran given intravenously and at that point I thought maybe we should try Haldol this also did not work. She subsequently developed some akathisia of her legs and she was administered promethazine and Benadryl with resolution of her symptoms. Departure - Departure Disposition: 01 Home, Self Care Clinical Impression: Vomiting Qualifiers: Vomiting type: unspecified Vomiting Intractability: non-intractable Nausea presence: with nausea Qualified Code(s): R11.2 - Nausea with vomiting, unspecified Condition: Stable Instructions: ED Nausea Vomiting Follow-Up: [facility] [Provider Group] Prescriptions: Promethazine [Phenergan] 25 mg PO Q6H PRN #10 tab PRN Reason: Nausea / Vomiting
[2021-03-31] MEDS ORDERED: PROMETHAZINE INJ 25 MG in SODIUM CHLORIDE 0.9% 50 ML IV STA (04:12)
[2021-03-31] MEDS ORDERED: diphenhydrAMINE INJ 50 MG/ML VIAL IVP STA (04:12)
[2021-03-31] MEDS ORDERED: PROMETHAZINE 25 MG/1 ML VIAL ONE (04:21)
[2021-03-31 05:08] VITALS: BP 110/68
== END 2021-03-31 05:13 | disposition home or self-care (01) ==
LOC: ED 00:22
DX: R11.2 Nausea with vomiting, unspecified (principal); K08.89 Other specified disorders of teeth and supporting structures; Z98.818 Other dental procedure status; G25.71 Drug induced akathisia; T43.4X5A Adverse effect of butyrophenone and thiothixene neuroleptics, initial encounter; Y92.238 Other place in hospital as the place of occurrence of the external cause
CPT/HCPCS: 36415; 80053; 81001; 81025; 83690; 85025; 96361; 96374; 96375; 99284; J1200; J7040; Q0162; 81003; 87086

== ENCOUNTER 2021-06-24 12:59 | Outpatient (CLI) | payer MEDICAID | END 2021-06-24 23:59 | disposition home or self-care (01) | LOC: LAB.N 12:59 | PROVIDERS: ATTEND Physician Assistant Medical | DX: R05 Cough (principal); Z20.822 Contact with and (suspected) exposure to COVID-19 ==

== ENCOUNTER 2021-07-21 08:18 | Emergency (ER) | payer MEDICAID ==
[2021-07-21 08:29] VITALS: BP 122/63
--- NOTE | 2021-07-21 08:34 | ED Physician Documentation ---
PD HPI OPHTHO - Stated complaint Stated Complaint: SWELLING LT EYE - Chief complaint Chief Complaint: Heent - History obtained from History obtained from: Patient - History of Present Illness Timing - onset: Last night Timing - duration: Days (1/2) Timing - details: Abrupt onset, Still present Location: Left Quality / character: Burning Associated symptoms: Redness, Discharge, Matting, Photophobia (mild). No: FB sensation, Decreased vision Contributing factors: No: Exposed to conjunctivitis, Recent URI, FB, Wears contacts Similar symptoms before: Has not had sx before Recently seen: Not recently seen Review of Systems Constitutional: denies: Fever, Chills Eyes: reports: Photophobia, Discharge, Irritation. 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 : Chronic bladder infection HEENT: None Psych: None Musculoskeletal: None Derm: None - Past Surgical History Past Surgical History: Yes - Present Medications Home Medications: Ambulatory Orders Medication Instructions Recorded Confirmed Erythromycin Base [Erythromycin 1 applic OP QID #3.5 gm 07/21/21 Ophthalmic Ointment] Ketotifen Fumarate [Alaway] 2 - 3 drops LEFTEYE QID 3 Days #10 07/21/21 ml Loratadine [Claritin] 10 mg PO DAILY 07/21/21 07/21/21 - Allergies Allergies/Adverse Reactions: Allergies Allergy/AdvReac Type Severity Reaction Status Date / Time cetirizine [From Rust] Allergy Rash Verified 07/21/21 08:29 ibuprofen Allergy Rash Verified 07/21/21 08:29 - Social History Does the pt smoke?: No Smoking Status: Never smoker Does the pt drink ETOH?: No Does the pt have substance abuse?: No - Immunizations Immunizations are current?: Yes - POLST Patient has POLST: No PD ED PE NORMAL - Vitals Vital signs reviewed: Yes - General General: Alert and oriented X 3, No acute distress, Well developed/nourished - HEENT HEENT: PERRL, EOMI, Ears normal, Moist mucous membranes, Pharynx benign, Other (some conjunctival redness left lower. No FB seen. Anterior chamber normal. Not light sensitive directly. Some crusting at lashes lower. ) Results - Vitals Vitals: Vital Signs - 24 hr 07/21/21 08:27 Temperature 36.4 C L Heart Rate 62 Respiratory 16 Rate Blood Pressure 122/63 O2 Saturation 98 Oxygen O2 Source Room air PD MEDICAL DECISION MAKING - ED course Complexity details: considered differential, d/w patient Departure - Departure Disposition: 01 Home, Self Care Clinical Impression: Acute conjunctivitis of left eye Condition: Stable Record reviewed to determine appropriate education?: Yes Instructions: ED Conjunctivitis Bacterial Prescriptions: Ketotifen Fumarate [Alaway] 2 - 3 drops LEFTEYE QID 3 Days #10 ml Erythromycin Base [Erythromycin Ophthalmic Ointment] 1 applic OP QID #3.5 gm Comments: I would suggest using both antihistamine and antibiotic eye medications for the left eye. It may be a local allergic reaction to something that contacted your eye. However it is concerning for early conjunctivitis infection "pinkeye". As such you should be off work today. You can resume work tomorrow after being on the antibiotics for a day. I would anticipate improvement over the next couple of days. Resolution within 2 or 3 days. Recheck if not improved during that timeframe. Return if worse. Forms: Activity restrictions Discharge Date/Time: 07/21/21 09:04
[2021-07-21] MEDS ORDERED: ERYTHROMYCIN OPHTH OINT 1 GM TUBE LEFTEYE STA (08:45)
== END 2021-07-21 09:04 | disposition home or self-care (01) ==
LOC: ED 08:18
DX: H10.32 Unspecified acute conjunctivitis, left eye (principal)
CPT/HCPCS: 99282; 99283; J3490

== ENCOUNTER 2021-10-16 08:00 | Outpatient (CLI) | payer MEDICAID | END 2021-10-16 23:59 | disposition home or self-care (01) | LOC: LAB.N 08:00 | PROVIDERS: ATTEND Physician Assistant | DX: R05.9 Cough, unspecified (principal); Z20.822 Contact with and (suspected) exposure to COVID-19 ==

== ENCOUNTER 2021-11-14 08:00 | Outpatient (CLI) | payer MEDICAID ==
[2021-11-14 21:57] LABS: BACTERIAL VAGINOSIS DNA NEGATIVE (NEGATIVE); CANDIDA GLABRATA DNA NEGATIVE (NEGATIVE); CANDIDA GROUP DNA NEGATIVE (NEGATIVE); CANDIDA KRUSEI DNA NEGATIVE (NEGATIVE); TRICHOMONAS VAGINALIS DNA NEGATIVE (NEGATIVE)
[2021-11-14 22:56] LABS: CHLAMYDIA TRACHOMATIS DNA NEGATIVE (NEGATIVE); NEISSERIA GONORRHOEAE DNA NEGATIVE (NEGATIVE); TRICHOMONAS VAGINALIS DNA NEGATIVE (NEGATIVE)
== END 2021-11-14 23:59 ==
LOC: LAB.N 08:00
PROVIDERS: ATTEND Physician Assistant
DX: R39.9 Unspecified symptoms and signs involving the genitourinary system (principal); N76.0 Acute vaginitis
CPT/HCPCS: 87077; 87086; 87181; 87491; 87591; 87661; 87801

== ENCOUNTER 2021-11-15 12:47 | Emergency (ER) | payer MEDICAID ==
[2021-11-15 12:59] VITALS: BP 127/70
[2021-11-15] MEDS ORDERED: SULFAMETH/TRIMETH DS 800/160 MG TABLET PO STA (14:10)
[2021-11-15] MEDS ORDERED: PHENAZOPYRIDINE 100 MG TABLET PO STA (14:10)
--- NOTE | 2021-11-15 14:12 | ED Physician Documentation ---
PD HPI ABD PAIN - Stated complaint Stated Complaint: FEMALE - Chief complaint Chief Complaint: Abd Pain - History obtained from History obtained from: Patient - Additional information Additional information: 21-year-old woman with 3 days of urinary frequency urgency and a little bit of reddish vaginal discharge. She was seen in the clinic yesterday and a vaginitis swab was done and negative but her urine culture is initially positive. She denies flank pain or fevers. She did have some nausea this morning but declines nausea medications. She was tested for per her yesterday which was negative as well. 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 : Chronic bladder infection HEENT: None Psych: None Musculoskeletal: None Derm: None - Past Surgical History Past Surgical History: Yes - Present Medications Home Medications: Ambulatory Orders Medication Instructions Recorded Confirmed Erythromycin Base [Erythromycin 1 applic OP QID #3.5 gm 07/21/21 Ophthalmic Ointment] Ketotifen Fumarate [Alaway] 2 - 3 drops LEFTEYE QID 3 Days #10 07/21/21 ml Loratadine [Claritin] 10 mg PO DAILY 07/21/21 07/21/21 Phenazopyridine HCl [Pyridium] 200 mg PO TID PRN #6 tablet 11/15/21 Sulfamethox/Trimeth 800/160 1 each PO BID #10 tablet 11/15/21 [Bactrim Ds 800/160] - Allergies Allergies/Adverse Reactions: Allergies Allergy/AdvReac Type Severity Reaction Status Date / Time cetirizine [From [facility]] Allergy Rash Verified 11/15/21 12:59 ibuprofen Allergy Rash Verified 11/15/21 12:59 - Social History Does the pt smoke?: No Smoking Status: Never smoker Does the pt drink ETOH?: No Does the pt have substance abuse?: No - Immunizations Immunizations are current?: Yes - POLST Patient has POLST: No PD ED PE NORMAL - Vitals Vital signs reviewed: Yes - General General: Alert and oriented X 3, No acute distress - Abdomen Abdomen: Soft, Non tender - Neuro Neuro: Alert and oriented X 3, Normal speech Results - Vitals Vitals: Vital Signs - 24 hr 11/15/21 12:55 Temperature 36.6 C Heart Rate 76 Respiratory 18 Rate Blood Pressure 127/70 O2 Saturation 97 Oxygen O2 Source Room air PD MEDICAL DECISION MAKING - ED course ED course: Results from yesterday reviewed and merit antibiotic treatment for cystitis but the wet prep was negative as were STD tests. Departure - Departure Disposition: Home, Self Care Clinical Impression: Cystitis Condition: Good Record reviewed to determine appropriate education?: Yes Instructions: ED UTI Cystitis Female Prescriptions: Sulfamethox/Trimeth 800/160 [Bactrim Ds 800/160] 1 each PO BID #10 tablet Phenazopyridine HCl [Pyridium] 200 mg PO TID PRN #6 tablet PRN Reason: dysuria Comments: Your urine culture is pending. If the urgent care calls you let them know what antibiotic we put you on. Return for new or worsening symptoms.
== END 2021-11-15 14:15 | disposition home or self-care (01) ==
LOC: ED 12:47
DX: N30.90 Cystitis, unspecified without hematuria (principal)
CPT/HCPCS: 99282; A9270

== ENCOUNTER 2021-11-26 23:08 | Emergency (ER) | payer MEDICAID ==
--- NOTE | 2021-11-26 23:21 | ED Physician Documentation ---
PD HPI FEMALE - Stated complaint Stated Complaint: FEMALE - History obtained from History obtained from: Patient - History of Present Illness Timing - onset: Today Timing - details: Gradual onset Pain level max: 0 Associated symptoms: Back pain, Dysuria, Urinary frequency. No: Fever Contributing factors: No: Recently seen: Emergency Dept - Additional information Additional information: T+R from this ED 11/15, diagnosed with UTI and rx bactrim BID x 5 days. She missed the last dose of bactrim. She was also recently diagnosed with COVID-19 (subsequent to 11/15 ED visit). She presents at this time due to urinary frequency and dysuria since this morning with mild bilateral low back discomfort. denies fever. Review of Systems Constitutional: denies: Fever GI: denies: Abdominal Pain, Nausea, Vomiting : reports: Dysuria, Frequency. 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 : Chronic bladder infection HEENT: None Psych: None Musculoskeletal: None Derm: None - Past Surgical History Past Surgical History: Yes - Present Medications Home Medications: Ambulatory Orders Medication Instructions Recorded Confirmed Erythromycin Base [Erythromycin 1 applic OP QID #3.5 gm 07/21/21 Ophthalmic Ointment] Ketotifen Fumarate [Alaway] 2 - 3 drops LEFTEYE QID 3 Days #10 07/21/21 ml Loratadine [Claritin] 10 mg PO DAILY 07/21/21 07/21/21 Phenazopyridine HCl [Pyridium] 200 mg PO TID PRN #6 tablet 11/15/21 Sulfamethox/Trimeth 800/160 1 each PO BID #10 tablet 11/15/21 [Bactrim Ds 800/160] - Allergies Allergies/Adverse Reactions: Allergies Allergy/AdvReac Type Severity Reaction Status Date / Time cetirizine [From [facility]] Allergy Rash Verified 11/26/21 23:25 ibuprofen Allergy Rash Verified 11/26/21 23:25 - Social History Does the pt smoke?: No Smoking Status: Never smoker Does the pt drink ETOH?: No Does the pt have substance abuse?: No - Immunizations Immunizations are current?: Yes - POLST Patient has POLST: No PD ED PE NORMAL - Vitals Vital signs reviewed: Yes - General General: Alert and oriented X 3, No acute distress, Well developed/nourished - Abdomen Abdomen: Soft, Non tender - Back Back: No CVA TTP Results - Vitals Vitals: Oxygen O2 Source Room air - Labs Labs: Laboratory Tests 11/26/21 11/26/21 23:20 23:20 Urine Color YELLOW Urine Clarity HAZY Urine pH 5.0 Ur Specific [place] >=1.030 H Urine Protein TRACE Urine Glucose (UA) NEGATIVE Urine Ketones NEGATIVE Urine Occult Blood SMALL H Urine Nitrite NEGATIVE Urine Bilirubin NEGATIVE Urine Urobilinogen 0.2 (NORMAL) Ur Leukocyte Esterase NEGATIVE Urine RBC 0-5 Urine WBC 0-3 Ur Squamous Epith Cells FEW Squamous Urine Bacteria Rare Urine Mucus Marked Strands Ur Microscopic Review INDICATED Urine Culture Comments NOT INDICATED Urine HCG, Qual NEGATIVE PD MEDICAL DECISION MAKING - ED course Complexity details: reviewed results, re-evaluated patient, considered differential, d/w patient ED course: c/o UTI symptoms but UA is not c/w UTI. She has no CVA tenderness and is in NAD. I reviewed results with patient and lack of findings on UA to support UTI diagnosis and thus no indication for antibiotic at this time. Return precautions discussed. Departure - Departure Disposition: 01 Home, Self Care Clinical Impression: Dysuria Condition: Good Instructions: ED Dysuria Uncertain Cause Comments: Your urinalysis results do not show evidence of urinary tract infection; it is not clear what is causing your symptoms. Follow up with your primary care provider , next available appointment, for reevaluation if symptoms persist. You can always return to the emergency department if symptoms worsen or new concerning signs/symptoms develop (such as fever, blood in the urine) Discharge Date/Time: 11/27/21 01:17
[2021-11-26 23:25] VITALS: BP 130/69
[2021-11-26 23:36] LABS: BILIRUBIN,URINE NEGATIVE (NEGATIVE); GLUCOSE, URINE (UA) NEGATIVE (NEGATIVE); KETONES,URINE (UA) NEGATIVE (NEGATIVE); LEUKOCYTE ESTERASE, URINE NEGATIVE (NEGATIVE); NITRITE,URINE NEGATIVE (NEGATIVE); OCCULT BLOOD,URINE SMALL (NEGATIVE); PROTEIN,URINE TRACE mg/dL (NEGATIVE); UROBILINOGEN,URINE 0.2 (NORMAL) E.U./dL (NORMAL)
[2021-11-26 23:45] LABS: BACTERIA,URINE Rare /HPF (None Seen); CLARITY,URINE HAZY (CLEAR); HCG UR QUAL NEGATIVE; RBC,URINE 0-5 /HPF (0-5); SQUAMOUS EPITHELIAL CELL,UR FEW Squamous (<= Few); WBC,URINE 0-3 /HPF (0-5)
[2021-11-26 23:46] LABS: MUCUS,URINE Marked Strands
== END 2021-11-27 01:17 | disposition home or self-care (01) ==
LOC: ED 23:08
DX: R35.0 Frequency of micturition (principal); R30.0 Dysuria; M54.50 Low back pain, unspecified
CPT/HCPCS: 81001; 81003; 81025; 87086; 99281; 99283

== ENCOUNTER 2021-12-16 14:32 | Emergency (ER) | payer MEDICAID ==
--- NOTE | 2021-12-16 16:01 | XRAY Report ---
PROCEDURE: Chest 2 View X-Ray INDICATIONS: cough TECHNIQUE: 2 view(s) of the chest. COMPARISON: None. FINDINGS: Surgical changes and devices: None. Lungs and pleura: No pleural effusions or pneumothorax. Lungs are clear. Mediastinum: Mediastinal contours are normal. Heart size is normal. Bones and chest wall: No suspicious bony abnormalities. Soft tissues appear unremarkable. IMPRESSION: No acute cardiopulmonary pathology. Reviewed by: Carlin Javed MD on 12/16/2021 4:00 PM [facility] Approved by: Carlin Javed MD on 12/16/2021 4:00 PM [facility] Station ID: [id number]
[2021-12-16] MEDS ORDERED: ALBUTEROL 1 PUFF INH STA (16:15)
[2021-12-16] MEDS ORDERED: predniSONE 20 MG TABLET PO STA (16:15)
--- NOTE | 2021-12-16 16:18 | ED Physician Documentation ---
PD HPI URI - Stated complaint Stated Complaint: SOA,WHEEZING,COUGH - Chief complaint Chief Complaint: Resp - History obtained from History obtained from: Patient - History of Present Illness Timing - onset: Yesterday Timing duration: Days (2) Timing details: Gradual onset Pain level max: 1 Pain level now: 1 Associated symptoms: Nasal congestion, Rhinorrhea, Dry cough, Dyspnea. No: Fever, Chills, Sweats, Ear pain Contributing factors: Sick contact, COPD / asthma Improves by: Rest Worsened by: Activity, Breathing - Additional information Additional information: 21-year-old female states that she had Covid last month. She states she started developing a cough again yesterday. Negative Covid test earlier today. Has a PCR test pending as well. She states that she feels like she is having a difficult time breathing. Has used inhalers in the past but is out of her albuterol. Requesting a refill. No fevers. No chills. Denies any possibility of . 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 : Chronic bladder infection HEENT: None Psych: None Musculoskeletal: None Derm: None - Past Surgical History Past Surgical History: Yes - Present Medications Home Medications: Ambulatory Orders Medication Instructions Recorded Confirmed Erythromycin Base [Erythromycin 1 applic OP QID #3.5 gm 07/21/21 Ophthalmic Ointment] Ketotifen Fumarate [Alaway] 2 - 3 drops LEFTEYE QID 3 Days #10 07/21/21 ml Loratadine [Claritin] 10 mg PO DAILY 07/21/21 07/21/21 Phenazopyridine HCl [Pyridium] 200 mg PO TID PRN #6 tablet 11/15/21 Sulfamethox/Trimeth 800/160 1 each PO BID #10 tablet 11/15/21 [Bactrim Ds 800/160] Albuterol Sulf [Ventolin Hfa 1 - 2 puffs INH Q4HR PRN #1 inhaler 12/16/21 Inhaler] Benzonatate [Tessalon] 200 mg PO TID PRN #30 cap 12/16/21 predniSONE [Deltasone] 10 mg PO [id number] #42 tab 12/16/21 - Allergies Allergies/Adverse Reactions: Allergies Allergy/AdvReac Type Severity Reaction Status Date / Time cetirizine [From [facility]] Allergy Rash Verified 12/16/21 14:43 ibuprofen Allergy Rash Verified 12/16/21 14:43 - Social History Does the pt smoke?: No Smoking Status: Never smoker Does the pt drink ETOH?: No Does the pt have substance abuse?: No - Immunizations Immunizations are current?: Yes - POLST Patient has POLST: No PD ED PE NORMAL - Vitals Vital signs reviewed: Yes - General General: Alert and oriented X 3, No acute distress, Well developed/nourished - HEENT HEENT: Moist mucous membranes - Neck Neck: Supple, no meningeal sign - Cardiac Cardiac: RRR, Strong equal pulses - Respiratory Respiratory: No respiratory distress, Other (diminished breath sounds bilaterally. ) - Abdomen Abdomen: Soft, Non tender, Non distended - Derm Derm: Warm and dry - Neuro Neuro: Alert and oriented X 3 - Psych Psych: Normal mood, Normal affect Results - Vitals Vitals: Vital Signs - 24 hr 12/16/21 12/16/21 12/16/21 14:43 16:05 16:08 Temperature 36.8 C 37.1 C Heart Rate 66 63 56 L Respiratory 16 16 18 Rate Blood Pressure 130/90 H 108/73 108/73 O2 Saturation 99 98 98 Oxygen O2 Source Room air PD MEDICAL DECISION MAKING - ED course Complexity details: considered differential, d/w patient ED course: 21-year-old female with what appears to be a viral upper respiratory infection. Will place on steroids and albuterol for home. She is well-appearing, nontoxic. Afebrile. No hypoxia. No respiratory distress. Feels better after albuterol. She is out of her albuterol and we will refill this for her. Patient counseled regarding signs and symptoms for which I believe and urgent re-evaluation would be necessary. Patient with good understanding of and agreement to plan and is comfortable going home at this time This document was made in part using voice recognition software. While efforts are made to proofread this document, sound alike and grammatical errors may occur. Departure - Departure Disposition: Home, Self Care Clinical Impression: Viral URI Condition: Good Instructions: ED Viral Syndrome Follow-Up: your,doctor as needed [Other] Prescriptions: Albuterol Sulf [Ventolin Hfa Inhaler] 1 - 2 puffs INH Q4HR PRN #1 inhaler PRN Reason: Shortness Of Air/Wheezing predniSONE [Deltasone] 10 mg PO [id number] #42 tab Benzonatate [Tessalon] 200 mg PO TID PRN #30 cap PRN Reason: Cough Comments: Please follow-up with your doctor for further care. Return if you worsen. Your x-ray does not show any acute abnormalities today. Your prescriptions have been sent to [facility] in [place].
[2021-12-16 17:20] VITALS: BP 116/78
== END 2021-12-16 17:20 | disposition home or self-care (01) ==
LOC: ED 14:32
DX: J06.9 Acute upper respiratory infection, unspecified (principal)
CPT/HCPCS: 71046; 94640; 94664; 99283; J7512

== ENCOUNTER 2021-12-31 16:44 | Emergency (ER) | payer MEDICAID ==
[2021-12-31 17:10] LABS: BILIRUBIN,URINE NEGATIVE (NEGATIVE); GLUCOSE, URINE (UA) NEGATIVE (NEGATIVE); KETONES,URINE (UA) NEGATIVE (NEGATIVE); LEUKOCYTE ESTERASE, URINE NEGATIVE (NEGATIVE); NITRITE,URINE NEGATIVE (NEGATIVE); OCCULT BLOOD,URINE NEGATIVE (NEGATIVE); PH,URINE 7.5 PH (5.0-7.5); PROTEIN,URINE NEGATIVE (NEGATIVE); UROBILINOGEN,URINE 1 (NORMAL) E.U./dL (NORMAL)
[2021-12-31 17:14] LABS: CLARITY,URINE CLEAR (CLEAR); HCG UR QUAL NEGATIVE
[2021-12-31 17:25] LABS: BASOPHILS # (AUTO) 0.1 10^3/uL (0.0-0.1); BASOPHILS % (AUTO) 0.5 %; EOSINOPHILS # (AUTO) 0.1 10^3/uL (0.0-0.7); HGB - HEMOGLOBIN 13.6 g/dL (12.0-16.0); LYMPHOCYTES # (AUTO) 2.1 10^3/uL (1.5-3.5); LYMPHOCYTES % (AUTO) 14.9 %; MEAN CORPUSCULAR HEMOGLOBIN 28.7 pg (27.0-31.0); MEAN CORPUSCULAR HGB CONC 32.4 g/dL (32.0-36.0); MEAN CORPUSCULAR VOLUME 88.6 fL (81.0-99.0); MEAN PLATELET VOLUME 9.2 fL (7.9-10.8); MONOCYTES # (AUTO) 1.3 10^3/uL (0.0-1.0); MONOCYTES % (AUTO) 9.6 %; NEUTROPHILS # (AUTO) 10.3 10^3/uL (1.5-6.6); NEUTROPHILS % (AUTO) 73.5 %; PLT - PLATELET COUNT 301 10^3/uL (130-450); RED BLOOD COUNT 4.74 10^6/uL (4.20-5.40); RED CELL DISTRIBUTION WIDTH 13.9 % (12.0-15.0)
[2021-12-31 17:28] LABS: ALBUMIN 4.2 g/dL (3.2-5.5); ALBUMIN/GLOBULIN RATIO 1.2 (1.0-2.2); BILIRUBIN,TOTAL 0.5 mg/dL (0.2-1.0); CALCIUM 9.2 mg/dL (8.5-10.3); CREATININE 0.7 mg/dL (0.4-1.0); POTASSIUM 3.6 mmol/L (3.5-5.0); TOTAL PROTEIN 7.6 g/dL (6.7-8.2)
[2021-12-31] MEDS ORDERED: metroNIDAZOLE 250 MG TABLET PO STA (18:29)
--- NOTE | 2021-12-31 19:20 | ED Physician Documentation ---
History of Present Illness - Stated complaint Stated Complaint: ABD PX - Chief complaint Chief Complaint: Abd Pain - History obtained from History obtained from: Patient - History of Present Illness Timing: Today Pain level max: 0 Pain level now: 0 - Additonal information Additional information: 21-year-old female complains of pelvic pain and discharge. She states the discharge is thin, white and smells fishy. She states she was seen at the walk- in clinic yesterday and told her testing was negative. Nothing makes it better or worse. No fevers. No chills. No other abdominal pain. No dysuria. Does not believe she has had any STI exposure. 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 : Chronic bladder infection HEENT: None Psych: None Musculoskeletal: None Derm: None - Past Surgical History Past Surgical History: Yes - Present Medications Home Medications: Ambulatory Orders Medication Instructions Recorded Confirmed Loratadine [Claritin] 10 mg PO DAILY PRN 07/21/21 12/31/21 Albuterol Sulf [Ventolin Hfa 1 - 2 puffs INH Q4HR PRN #1 inhaler 12/16/21 12/31/21 Inhaler] metroNIDAZOLE [Flagyl] 500 mg PO BID #14 tablet 12/31/21 - Allergies Allergies/Adverse Reactions: Allergies Allergy/AdvReac Type Severity Reaction Status Date / Time cetirizine [From [facility]] Allergy Rash Verified 12/31/21 16:48 ibuprofen Allergy Rash Verified 12/31/21 16:48 - Social History Does the pt smoke?: No Smoking Status: Never smoker Does the pt drink ETOH?: No Does the pt have substance abuse?: No - Immunizations Immunizations are current?: Yes - POLST Patient has POLST: No PD ED PE NORMAL - Vitals Vital signs reviewed: Yes - General General: Alert and oriented X 3, No acute distress - HEENT HEENT: Moist mucous membranes - Neck Neck: Supple, no meningeal sign - Cardiac Cardiac: RRR, Strong equal pulses - Respiratory Respiratory: No respiratory distress, Clear bilaterally - Abdomen Abdomen: Soft, Non tender, Non distended - Female Female : Pt declined - Derm Derm: Warm and dry - Neuro Neuro: Alert and oriented X 3 - Psych Psych: Normal mood, Normal affect Results - Vitals Vitals: Vital Signs - 24 hr 12/31/21 12/31/21 12/31/21 16:48 19:15 19:33 Temperature 37.3 C 37.3 C Heart Rate 133 H 92 85 Respiratory 18 16 Rate Blood Pressure 140/83 H 115/75 O2 Saturation 97 100 Oxygen O2 Source Room air - Labs Labs: Laboratory Tests 12/31/21 12/31/21 12/31/21 17:00 17:12 17:12 WBC 14.0 H RBC 4.74 Hgb 13.6 Hct 42.0 MCV 88.6 MCH 28.7 MCHC 32.4 RDW 13.9 Plt Count 301 MPV 9.2 Neut # (Auto) 10.3 H Lymph # (Auto) 2.1 [place] # (Auto) 1.3 H Eos # (Auto) 0.1 Baso # (Auto) 0.1 Absolute Nucleated RBC 0.00 Nucleated RBC % 0.0 Sodium 134 L Potassium 3.6 Chloride 101 Carbon Dioxide 24 Anion Gap 9.0 BUN 13 Creatinine 0.7 Estimated GFR (MDRD) 106 Glucose 107 H Calcium 9.2 Total Bilirubin 0.5 AST 30 ALT 37 Alkaline Phosphatase 64 Total Protein 7.6 Albumin 4.2 Globulin 3.4 Albumin/Globulin Ratio 1.2 Lipase 29 Urine Color YELLOW Urine Clarity CLEAR Urine pH 7.5 Ur Specific [place] 1.020 Urine Protein NEGATIVE Urine Glucose (UA) NEGATIVE Urine Ketones NEGATIVE Urine Occult Blood NEGATIVE Urine Nitrite NEGATIVE Urine Bilirubin NEGATIVE Urine Urobilinogen 1 (NORMAL) Ur Leukocyte Esterase NEGATIVE Ur Microscopic Review NOT INDICATED Urine Culture Comments NOT INDICATED Urine HCG, Qual NEGATIVE C. glabrata (PCR) C. krusei (PCR) Veronica species DNA T. vaginalis (PCR) Bact Vaginosis (PCR) 12/31/21 18:25 WBC RBC Hgb Hct MCV MCH MCHC RDW Plt Count MPV Neut # (Auto) Lymph # (Auto) [place] # (Auto) Eos # (Auto) Baso # (Auto) Absolute Nucleated RBC Nucleated RBC % Sodium Potassium Chloride Carbon Dioxide Anion Gap BUN Creatinine Estimated GFR (MDRD) Glucose Calcium Total Bilirubin AST ALT Alkaline Phosphatase Total Protein Albumin Globulin Albumin/Globulin Ratio Lipase Urine Color Urine Clarity Urine pH Ur Specific [place] Urine Protein Urine Glucose (UA) Urine Ketones Urine Occult Blood Urine Nitrite Urine Bilirubin Urine Urobilinogen Ur Leukocyte Esterase Ur Microscopic Review Urine Culture Comments Urine HCG, Qual C. glabrata (PCR) NEGATIVE C. krusei (PCR) NEGATIVE Veronica species DNA NEGATIVE T. vaginalis (PCR) NEGATIVE Bact Vaginosis (PCR) POSITIVE A PD MEDICAL DECISION MAKING - ED course Complexity details: considered differential, d/w patient ED course: Bacterial vaginitis and STI swabs were sent. Patient self swabbed. Her history sounds suspicious for bacterial vaginitis and we will start her on Flagyl. We will contact the patient tomorrow with the results of her testing. A note was left for the oncoming daytime physician tomorrow. Patient counseled regarding signs and symptoms for which I believe and urgent re-evaluation would be necessary. Patient with good understanding of and agreement to plan and is comfortable going home at this time This document was made in part using voice recognition software. While efforts are made to proofread this document, sound alike and grammatical errors may occur. Records from her [facility] visit are unavailable. Departure - Departure Disposition: 01 Home, Self Care Clinical Impression: Bacterial vaginitis Condition: Good Instructions: ED Vaginosis Bacterial Follow-Up: your,doctor in 1 week [Other] Prescriptions: metroNIDAZOLE [Flagyl] 500 mg PO BID #14 tablet Comments: Your prescription was sent to [facility] in [place]. Please follow-up with your doctor for further care. The remainder of your testing will be back tomorrow and we will call you to let you know if the results are positive or negative and if you need any further treatment. Please return if you worsen. Discharge Date/Time: 12/31/21 19:33
[2021-12-31 19:33] VITALS: BP 115/75
[2021-12-31 20:34] LABS: BACTERIAL VAGINOSIS DNA POSITIVE (NEGATIVE); CANDIDA GLABRATA DNA NEGATIVE (NEGATIVE); CANDIDA GROUP DNA NEGATIVE (NEGATIVE); CANDIDA KRUSEI DNA NEGATIVE (NEGATIVE); TRICHOMONAS VAGINALIS DNA NEGATIVE (NEGATIVE)
[2021-12-31 23:54] LABS: CHLAMYDIA TRACHOMATIS DNA NEGATIVE (NEGATIVE); NEISSERIA GONORRHOEAE DNA NEGATIVE (NEGATIVE); TRICHOMONAS VAGINALIS DNA NEGATIVE (NEGATIVE)
== END 2021-12-31 19:33 | disposition home or self-care (01) ==
LOC: ED 16:44
DX: N76.0 Acute vaginitis (principal)
CPT/HCPCS: 36415; 80053; 81003; 81025; 83690; 85025; 87481; 87491; 87591; 87661; 87801; 99282; 99283; A9270; 81001; 87086

== ENCOUNTER 2022-02-02 08:00 | Outpatient (CLI) | payer MEDICAID ==
[2022-02-02 20:27] LABS: BACTERIAL VAGINOSIS DNA NEGATIVE (NEGATIVE); CANDIDA GLABRATA DNA NEGATIVE (NEGATIVE); CANDIDA GROUP DNA POSITIVE (NEGATIVE); CANDIDA KRUSEI DNA NEGATIVE (NEGATIVE); TRICHOMONAS VAGINALIS DNA NEGATIVE (NEGATIVE)
[2022-02-02 21:15] LABS: CHLAMYDIA TRACHOMATIS DNA NEGATIVE (NEGATIVE); NEISSERIA GONORRHOEAE DNA NEGATIVE (NEGATIVE); TRICHOMONAS VAGINALIS DNA NEGATIVE (NEGATIVE)
== END 2022-02-02 23:59 ==
LOC: LAB.N 08:00
PROVIDERS: ATTEND Physician Assistant Medical
DX: N76.0 Acute vaginitis (principal)
CPT/HCPCS: 87491; 87591; 87661; 87801

== ENCOUNTER 2022-02-03 16:19 | Outpatient (CLI) | payer MEDICAID ==
[2022-02-05 15:26] LABS: HIV AG/AB 4TH GEN NON-REACTIVE (NON-REACTIVE)
== END 2022-02-03 16:20 | disposition home or self-care (01) ==
LOC: LAB.N 16:19
PROVIDERS: ATTEND Physician Assistant Medical
DX: N76.0 Acute vaginitis (principal)
CPT/HCPCS: 86592; 87389; 87491; 87591; 87661; 87801

== ENCOUNTER 2022-02-26 08:00 | Outpatient (CLI) | payer MEDICAID ==
[2022-02-26 22:07] LABS: BACTERIAL VAGINOSIS DNA POSITIVE (NEGATIVE); CANDIDA GLABRATA DNA NEGATIVE (NEGATIVE); CANDIDA GROUP DNA NEGATIVE (NEGATIVE); CANDIDA KRUSEI DNA NEGATIVE (NEGATIVE); TRICHOMONAS VAGINALIS DNA NEGATIVE (NEGATIVE)
== END 2022-02-26 23:59 | disposition home or self-care (01) ==
LOC: LAB.N 08:00
PROVIDERS: ATTEND Family Medicine
DX: N76.0 Acute vaginitis (principal)
CPT/HCPCS: 81514

== ENCOUNTER 2023-11-11 11:21 | Outpatient (CLI) | payer MEDICAID ==
[2023-11-11 17:38] LABS: BASOPHILS # (AUTO) 0.1 10^3/uL (0.0-0.1); BASOPHILS % (AUTO) 0.7 %; EOSINOPHILS # (AUTO) 0.3 10^3/uL (0.0-0.7); EOSINOPHILS % (AUTO) 4.9 %; HCT - HEMATOCRIT 43.2 % (37.0-47.0); HGB - HEMOGLOBIN 13.7 g/dL (12.0-16.0); LYMPHOCYTES # (AUTO) 1.2 10^3/uL (1.5-3.5); LYMPHOCYTES % (AUTO) 17.7 %; MEAN CORPUSCULAR HEMOGLOBIN 27.9 pg (27.0-31.0); MEAN CORPUSCULAR HGB CONC 31.7 g/dL (32.0-36.0); MEAN PLATELET VOLUME 10.2 fL (7.9-10.8); MONOCYTES % (AUTO) 14.2 %; NEUTROPHILS # (AUTO) 4.2 10^3/uL (1.5-6.6); NEUTROPHILS % (AUTO) 62.1 %; PLT - PLATELET COUNT 287 10^3/uL (130-450); RED BLOOD COUNT 4.91 10^6/uL (4.20-5.40); RED CELL DISTRIBUTION WIDTH 13.2 % (12.0-15.0); WHITE BLOOD COUNT 6.7 x10^3/uL (4.8-10.8)
[2023-11-11 18:07] LABS: ALBUMIN 4.3 g/dL (3.2-5.5); ALBUMIN/GLOBULIN RATIO 1.3 (1.0-2.2); BILIRUBIN,TOTAL 0.3 mg/dL (0.2-1.0); CALCIUM 9.4 mg/dL (8.5-10.3); CREATININE 0.6 mg/dL (0.6-1.3); POTASSIUM 4.2 mmol/L (3.5-4.5); TOTAL PROTEIN 7.5 g/dL (6.4-8.9)
[2023-11-11 18:16] LABS: THYROID STIMULATING HORMONE 1.37 uIU/mL (0.34-5.60)
[2023-11-11 18:19] LABS: FERRITIN 31.3 ng/mL (11.0-306.8); INR 1.3 (0.8-1.2); PT - PROTHROMBIN TIME 13.4 secs (9.9-12.6)
== END 2023-11-11 11:22 | disposition home or self-care (01) ==
LOC: LAB.N 11:21
PROVIDERS: ATTEND Nurse Practitioner Family
DX: R23.8 Other skin changes (principal); F41.8 Other specified anxiety disorders
CPT/HCPCS: 36415; 80053; 82728; 83540; 84443; 84466; 85025; 85610